=== PATIENT | male | born 1955 | race Caucasian/White ===

== ENCOUNTER 2017-05-09 09:50 | Day surgery (SDC) | payer BC, SELFPAY ==
[2017-04-16 15:46] VITALS: BP 165/89; BMI 25.2
[2017-05-01 17:15] LABS: Hematocrit 44.9 % (40-54); Hemoglobin 15.3 g/dl (13.0-16.5); Mean Corp Hgb Conc 34.1 g/gl (32-36); Mean Corpuscular Hgb 34.2 pg (27.0-32.0); Mean Corpuscular Volume 100.4 fL (80-94); Mean Platelet Vol. 9.7 fl (6.2-12.0); Platelet Count 289 K/mm3 (150-450); RBC Distribution Width CV 12.8 % (11.6-14.6); RBC Distribution Width SD 47.1 fl (35.1-43.9); Red Blood Count 4.47 M/mm3 (4.6-6.2); Scan Indicated on CBC? Y/N NO; White Blood Count 10.1 K/mm3 (4.4-11.0)
[2017-05-09] VITALS (10 sets, daily range): BP systolic 126–146; BP diastolic 68–84; PULSE 65–97; RESP 16–18; TEMP 36.2–37.3; O2SAT 66–99; BMI 24.2
--- NOTE | 2017-05-09 | TESH_PTH ---
PATIENT: RYAN SHELTON LOC: [facility] [place] U#:[id number] AGE/SX: 61/M ROOM: RE05/09/[address]: Dr. Ryan Aparicio MD : [id number] BED: DIS: 05/10/2017 SPEC #: [id number] RECD: 05/09/17 15:09 STATUS: RODRI SYLVIA #: [id number] NORM: 05/09/17 00:[address]: Ryan Aparicio DEPT: SURGICAL PATHOLOGY RECD BY: Donaldo James ENTERED: 05/09/17 15:09 SP TYPE: TENDON OTHR DR: Dr. Juve Agudelo MD Tissues: Tendon and tendon sheath, NOS Procedures: Surgery Specimen Level III HEADER OPERATION: Excisional debridement, ulcer, skin grafting PRE-OP DIAGNOSIS: Nonhealing ulcer right knee, S/P right patellar tendon rupture repair right knee TISSUE SUBMITTED: Tissue right knee MICROSCOPIC DIAGNOSIS Tissue, right knee: Pieces of skin and soft tissue with fibrinous exudation, granulation tissue reaction, chronic inflammation and reactive changes. MANOJ:dannie 05/12/17 MICROSCOPIC DESCRIPTION Slides are reviewed. GROSS DESCRIPTION Received in fixative is one container labeled with the patient's name and designated tissue from right knee. The specimen consists of a raymond-white skin ellipse measuring 6 x 1.5 cm and up to 0.2 cm in thickness. Also present in the container are multiple detached pieces of skin and soft tissue that in aggregate measure 2 x 1.5 x 0.2 cm. The larger piece of skin ellipse shows an oval-shaped defect measuring 2.5 cm in greatest dimension. Handkerchief Cutter sections are submitted in one cassette. / MANOJ:dannie 05/09/17 TC:5 CPT: 35578
--- NOTE | 2017-05-09 07:26 | HP.PCM_ITS ---
History and Physical Date of Admission: 05/09/17 Referring Provider: Hayder Barron MD Primary Provider: Juve Agudelo MD CC: evaluation nonhealing ulcer right knee . History of Present Illness: 61-year-old gentleman initially presented with a nonhealing ulcer of his right knee. He initially sustained a right patellar tendon rupture in May 2016. He underwent right patellar tendon rupture repair on June 05, [address] Barron. Postoperatively there was some healing issues and the patient was taken back to the operating room on September 04, 2016 and he underwent excision sinus tract and debridement right knee wound. Postoperatively a small portion of the wound did not heal and he was sent to the wound center. During this time before going to the wound center patient was placed on doxycycline antibiotics. His initial visit at the wound center was in September 2016. He was started on Promogran dressing changes daily. Wound culture was done which showed coag negative staph and Streptococcus epilepsy and anaerobic cocci. Patient was placed on Zyvox and Flagyl. There was some improvement in the healing of the wound. However it never completely closed. An MRI was done on October 26, 2016. It showed postsurgical changes in the patella and the patellar tendon with a superficial wound with no evidence of soft tissue abscess formation or osteomyelitis. There was mild medial collateral ligament sprain with mild bursitis deep to the medial collateral ligament with a small joint effusion and popliteal cyst. He was taken to the OR on 01/16/17 where he underwent surgical preparation right knee with incision and drainage and excision nonhealing infected ulcer and foreign body granuloma tract with 9 cm complex secondary wound closure. Postop he developed some healing issues and wound care was started with Aquacel Silver dressing changes daily. A wound culture showed MRSE and he was treated with Levaquin. There was some improvement in the wound, but it never completely healed with some tendon exposure. He had persistent pain in his right knee and hasn't been able to return to work as of yet. He is anxious to return to work and further operative intervention was recommended. Patient denies any fever. Patient is ambulatory. Past Medical History: Hypertension Hernia, bilateral inguinal COPD Scrotal hydroceles Right patellar tendon rupture Nonhealing ulcer right knee MRSE Past Surgical History: Right hip replacement 2010 Dislocator right hip 1974 Laparoscopic bilateral inguinal hernia repair with mesh and left scrotal hydrocelectomy 11/07/14 double hernia repair Right patella tendon rupture repair - 3/22/17 excision sinus tract and debridement right knee wound - 09/04/16 Past injuries: denies history of head trauma, denies history of bone fractures Surgical preparation right knee with incision and drainage and excision nonhealing infected ulcer and foreign body granuloma tract with 9 cm complex secondary wound closure - 01/16/17 Family History: Negative for skin cancer Other family member - Has Family History of Arthritis Other family member - Has Family History of Diabetes Other family member - Has Family History of Hypertension Other family member - Has Family History of Other Cancer Father (biol.) - Has Family History of Other Diseases - of OR at age 75 Brother (full) - Has Family History of Other Diseases - kidney cancer Social History: Alcohol Use - yes Drug Use - no Smoking History: Patient currently smokes every day. 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 Eyes: Denies: Blurred vision, Pain HEENT: Denies: Nasal congestion, Sore Throat. Cardiovascular: Denies: Chest Pain, Palpitations, Syncope Respiratory: Denies: Cough, Shortness of Breath. Patient is a smoker. Gastrointestinal: Denies: Abdominal Pain, Nausea, Vomiting Genitourinary: Denies: Dysuria, Frequency Musculoskeletal: Denies: Joint Pain, Muscle pain Skin: Reports: -. Denies: Jaundice, Rash Neurological: Denies: Balance problems, Change in Speech, Difficulty swallowing , Focal weakness Psychiatric: Denies: Anxiety, Depression Endocrine: Denies: Change in Body Habitus Hematologic/ Lymphatic: Denies: Adenopathy, abnormal bruising and bleeding. Vital Signs: Patient Profile: 61 Years Old Male Height: 65.5 inches Weight: 150.8 pounds BMI: 24.71 Physical Exam General: Oriented x3, Cooperative, Well developed HEENT: Atraumatic, PERRLA Oral: Moist Mucosa Neck: Supple, No cervical adenopathy Lungs: Clear to auscultation, Normal air movement Cardiovascular: Regular rate, Regular Rhythm Abdomen: Bowel Sounds Present, Soft, nondistended Extremities: No clubbing, No edema, - - Right knee ulcer at the distal approximated suture line. Measures 2.5 x 1.5 x 0.5 cm. No cellulitis, fluctuance, or purulent drainage. Some tendon exposure. Musculoskeletal: No Tenderness to Palpation of Joints or Extremities Lymphatic: No Cervical, Supraclavicular, or Inguinal Adenopathy Neurological: Cranial nerves II-XII grossly intact Psych/Mental Status: Normal Affect, Appropriate Assessment and Plan Assessment 1. Nonhealing ulcer right knee. 2. Smoker. 3. s/p right patellar tendon rupture repair in May 2016. 4. s/p excision sinus tract and debridement right knee wound in August 2016. 5. s/p surgical preparation right knee with incision and drainage and excision nonhealing infected ulcer and foreign body granuloma tract with 9 cm complex secondary wound closure in January 2017. Plan Discussed with the patient that the ulcer still struggles to heal despite Silver dressing changes for wound care and antibiotics for a wound culture that showed MRSE. Also there may have been too much tension in the incision since it is in an area of movement (knee joint area). Being a smoker also adds to the risk of suboptimal healing as well. There is some exposed tendon and further operative debridement of this nonhealing ulcer was recommended. Depending on what I find at the time of surgery, the simplest procedure would be skin grafting. That will depend on how healthy and bloody the ulcer appears after debridement. Because of the exposed tendon, the skin graft may not heal as well and I discussed with him that if a skin graft is done, I will anticipate some compromise to the healing process and he would need HBO treatments at the Wound Center to help salvage the graft. Another option would be fasciocutaneous flaps, most likely bilateral bipedicle flaps with skin grafting of the donor sites. This would be predicated on the presence of perforators by Doppler signal. Because of his previous surgeries, I don't know how good the fascia is which would compromise the flap and lead to suboptimal healing. If there is too much scarring in the area of the fascial dissection, then I would not proceed with the fasciocutaneous flaps. I would then proceed with a muscle flap with skin grafting. The muscle of choice would be the gastrocnemius muscle. Surgery will be done under general anesthesia with a surgical observation overnight stay in the hospital. If a muscle flap is done, then he would stay a few days. I would also consider a short stay at [facility] if he qualified so I could keep a closer eye on the healing flap. At the time of surgery, I would send tissue to Microbiology for culture and to Pathology for analysis. A positive culture may necessitate antibiotic modification. The patient was informed of the risks and complications of the procedure including alternatives to surgery. These were discussed with the patient personally. The patient voices understanding and wishes to proceed. Some of the risks and complications were included in a form from the [employer]. Encouraged the patient to stop smoking as it may have deleterious effects on wound healing.
[2017-05-09] MEDS: Cefazolin 2 GM in 0.9% Normal Saline 100 ML IV (11:57)
[2017-05-09] MEDS: Mupirocin Ointment 22gm Tube 1 APPLIC (13:16)
--- NOTE | 2017-05-09 13:41 | OP.PN_ITS ---
Immediate Post-Op Note Date of Procedure: 05/09/17 Primary Surgeon/Physician: Luis Aparicio lang interpreter: Mars Palacio. Pre-Operative Diagnosis: 1. Nonhealing ulcer right knee. 2. Smoker. 3. s/p right patellar tendon rupture repair in May 2016. 4. s/p excision sinus tract and debridement right knee wound in August 2016. 5. s/p surgical preparation right knee with incision and drainage and excision nonhealing infected ulcer and foreign body granuloma tract with 9 cm complex secondary wound closure in January 2017. Post-Operative Diagnosis: Same. Surgery/Procedure Performed:: 1. Surgical preparation right knee with excisional debridement nonhealing ulcer and foreign body suture granuloma. 2. Reconstruction right knee ulcer with STSG from lower anterior abdominal wall ( 21 cm2) and placement of AWILDA NPWT. Description of Surgical Findings:: 61-year-old gentleman initially presented with a nonhealing ulcer of his right knee. He initially sustained a right patellar tendon rupture in May 2016. He underwent right patellar tendon rupture repair on June 05, [address] Barron. Postoperatively there was some healing issues and the patient was taken back to the operating room on September 04, 2016 and he underwent excision sinus tract and debridement right knee wound. Postoperatively a small portion of the wound did not heal and he was sent to the wound center. During this time before going to the wound center patient was placed on doxycycline antibiotics. His initial visit at the wound center was in September 2016. He was started on Promogran dressing changes daily. Wound culture was done which showed coag negative staph and Streptococcus epilepsy and anaerobic cocci. Patient was placed on Zyvox and Flagyl. There was some improvement in the healing of the wound. However it never completely closed. An MRI was done on October 26, 2016. It showed postsurgical changes in the patella and the patellar tendon with a superficial wound with no evidence of soft tissue abscess formation or osteomyelitis. There was mild medial collateral ligament sprain with mild bursitis deep to the medial collateral ligament with a small joint effusion and popliteal cyst. He was taken to the OR on 01/16/17 where he underwent surgical preparation right knee with incision and drainage and excision nonhealing infected ulcer and foreign body granuloma tract with 9 cm complex secondary wound closure. Postop he developed some healing issues and wound care was started with Aquacel Silver dressing changes daily. A wound culture showed MRSE and he was treated with Levaquin. There was some improvement in the wound, but it never completely healed with some tendon exposure. He had persistent pain in his right knee and hasn't been able to return to work as of yet. He is anxious to return to work and further operative intervention was recommended. Patient denies any fever. Patient is ambulatory. Today the patient underwent surgical preparation right knee with excisional debridement nonhealing ulcer and foreign body suture granuloma and.reconstruction right knee ulcer with STSG from lower anterior abdominal wall (21 cm2) and placement of AWILDA NPWT. I used [employer] AWILDA NPWT device. Reference Number - [id number]. Lot Number - [id number]. Expiration - May 15, 2018. Estimated Blood Loss: 50 ml. Specimen's removed: Nonhealing ulcer right knee and foreign body granuloma tissue to Pathology and Microbiology. Drains: None. Type of Anesthesia:: General - Admit VTE Documentation VTE Present on Admission: No VTE Mechan Device Prophylaxis: SCD's VTE Pharm Prophylaxis ordered?: No
--- NOTE | 2017-05-09 15:05 | NURSING ---
IVF, LR, from OR programmed to run at ordered rate of 60cc/hr and time on MAR adjusted accordingly.
[2017-05-09 18:11] LABS: Anion Gap 7 (5-15); BUN 12 mg/dL (7-18); BUN/Creat Ratio 18.7 RATIO (10-20); Calcium,Total 8.1 mg/dL (8.5-10.1); Chloride 105 mmol/L (98-107); Creatinine, Serum 0.64 mg/dL (0.70-1.30); EST Glomerular Filtration Rate 135 mL/min (>60); Est Glom Filt Rate - Afr Amer 163 mL/min (>60); Estimated Creatinine Clearance 114.76 ml/min; Glucose 76 mg/dL (74-106); Potassium 3.7 mmol/L (3.5-5.1); Sodium Level 139 mmol/L (136-145)
[2017-05-09] MEDS: oxyCODONE 5 MG Tablet 10 MG PO (18:51)
[2017-05-09] MEDS: Lactated Ringers 1,000 ML 60 ML IV (18:52)
[2017-05-09] MEDS: Docusate Sodium 100 MG Capsule PO (19:52)
[2017-05-10 03:25] VITALS: BP 143/74; PULSE 67; RESP 16; TEMP 36.8; O2SAT 96
[2017-05-10] MEDS: oxyCODONE 5 MG Tablet 10 MG PO ×2 (03:29→10:35)
[2017-05-10 07:14] LABS: Hematocrit 38.7 % (40-54); Hemoglobin 13.5 g/dl (13.0-16.5); Mean Corp Hgb Conc 34.9 g/gl (32-36); Mean Corpuscular Volume 100.3 fL (80-94); Mean Platelet Vol. 9.5 fl (6.2-12.0); Platelet Count 237 K/mm3 (150-450); RBC Distribution Width CV 12.4 % (11.6-14.6); RBC Distribution Width SD 44.4 fl (35.1-43.9); Red Blood Count 3.86 M/mm3 (4.6-6.2); White Blood Count 8.8 K/mm3 (4.4-11.0)
[2017-05-10 07:16] LABS: Scan Indicated on CBC? Y/N NO
[2017-05-10 07:39] LABS: Anion Gap 6 (5-15); BUN 11 mg/dL (7-18); BUN/Creat Ratio 17.9 RATIO (10-20); Calcium,Total 8.4 mg/dL (8.5-10.1); Chloride 100 mmol/L (98-107); Creatinine, Serum 0.62 mg/dL (0.70-1.30); EST Glomerular Filtration Rate 141 mL/min (>60); Est Glom Filt Rate - Afr Amer 171 mL/min (>60); Estimated Creatinine Clearance 118.46 ml/min; Glucose 96 mg/dL (74-106); Potassium 4.1 mmol/L (3.5-5.1); Prealbumin 19.8 mg/dL (20.0-40.0); Sodium Level 136 mmol/L (136-145)
[2017-05-10 08:00] VITALS: BP 132/77; PULSE 66; RESP 16; TEMP 36.4; O2SAT 92
[2017-05-10] MEDS: Multivitamins,Ther W-Minerals Tablet 1 TABLET PO (08:27)
--- NOTE | 2017-05-10 08:45 | OP.PCM_ITS ---
Report of Operation Date of Procedure: 05/09/17 Pre-Operative Diagnosis: 1. Nonhealing ulcer right knee. 2. Smoker. 3. s/p right patellar tendon rupture repair in May 2016. 4. s/p excision sinus tract and debridement right knee wound in August 2016. 5. s/p surgical preparation right knee with incision and drainage and excision nonhealing infected ulcer and foreign body granuloma tract with 9 cm complex secondary wound closure in January 2017. Post-Operative Diagnosis: Same. Surgery/Procedure Performed:: 1. Surgical preparation right knee with excisional debridement nonhealing ulcer and foreign body suture granuloma. 2. Reconstruction right knee ulcer with STSG from lower anterior abdominal wall ( 21 cm2) and placement of AWILDA NPWT. Description of Surgical Findings:: 61-year-old gentleman initially presented with a nonhealing ulcer of his right knee. He initially sustained a right patellar tendon rupture in May 2016. He underwent right patellar tendon rupture repair on June 05, [address] Barron. Postoperatively there was some healing issues and the patient was taken back to the operating room on September 04, 2016 and he underwent excision sinus tract and debridement right knee wound. Postoperatively a small portion of the wound did not heal and he was sent to the wound center. During this time before going to the wound center patient was placed on doxycycline antibiotics. His initial visit at the wound center was in September 2016. He was started on Promogran dressing changes daily. Wound culture was done which showed coag negative staph and Streptococcus epilepsy and anaerobic cocci. Patient was placed on Zyvox and Flagyl. There was some improvement in the healing of the wound. However it never completely closed. An MRI was done on October 26, 2016. It showed postsurgical changes in the patella and the patellar tendon with a superficial wound with no evidence of soft tissue abscess formation or osteomyelitis. There was mild medial collateral ligament sprain with mild bursitis deep to the medial collateral ligament with a small joint effusion and popliteal cyst. He was taken to the OR on 01/16/17 where he underwent surgical preparation right knee with incision and drainage and excision nonhealing infected ulcer and foreign body granuloma tract with 9 cm complex secondary wound closure. Postop he developed some healing issues and wound care was started with Aquacel Silver dressing changes daily. A wound culture showed MRSE and he was treated with Levaquin. There was some improvement in the wound, but it never completely healed with some tendon exposure. He had persistent pain in his right knee and hasn't been able to return to work as of yet. He is anxious to return to work and further operative intervention was recommended. Patient denies any fever. Patient is ambulatory. The patient was informed of the risks and complications of the procedure including alternatives to surgery. These were discussed with the patient personally. The patient voices understanding and wishes to proceed. Some of the risks and complications were included in a form from the [employer]. Encouraged the patient to stop smoking as it may have deleterious effects on wound healing. I used [employer] AWILDA NPWT device. Reference Number - [id number]. Lot Number - [id number]. Expiration - May 15, 2018. Size of the skin graft right knee - 7 x 3 cm. educational paraprofessional: Mars Palacio. Type of Anesthesia:: General Specimen's removed: Nonhealing ulcer right knee and foreign body granuloma tissue to Pathology and Microbiology. Drains: None. Estimated Blood Loss (mL): 50 ml. Description of Procedure: Patient was taken to OR in supine position and was placed under general anesthesia. His right leg and lower anterior abdominal wall were prepped and draped in the usual fashion. SCD's were placed for DVT prophylaxis. Perioperative antibiotics were given intravenously. Using xylocaine with epinephrine, the right knee ulcer and lower anterior abdominal wall area were infiltrated. After waiting 5 minutes for the anesthetic to take effect, I proceeded with excisional debridement of the right knee ulcer. I opened up the incision proximally and distally as an ellipitical excision. When I got down to the tendon, there was a loose suture that was cut. The surrounding granuloma scar tissue was also excised. I then used a curette and sharply debrided the ulcer and tendon. Good bleeding was seen throughout the wound. At this point, I felt the wound was clean with good vascularity, and I decided to proceed with skin grafting. I felt the presence of the loose foreign body suture could have been one of the reasons for the nonhealing. All the hard scar tissue was debrided in the wound to maximize the healing of the skin graft. I also discussed with the patient that with his history of smoking, I anticipate that if a skin graft is done, that HBO treatments may be necessary to help salvage the graft if any evidence of compromise is seen. The tissue that was excised and debrided was sent to Pathology for analysis to rule out carcinoma and to Microbiology for culture. A positive culture may necessitate antibiotic modification. The size of the wound for the skin graft was 7 x 3 cm. I excised a horizontal ellipse of skin in the lower anterior abdominal wall. I removed the subcutaneous tissue from the undersurface of the dermis and some of the deeper dermis thus fashioning a thick split thickness skin graft. The skin graft was then meshed with a 15 blade and placed in saline. The donor incision was then closed after removing some of the subcutaneous tissue to aid in wound closure. The underlying Aturus's fascial layer was closed with 3-0 Monocryl figure of eight interrupted sutures. The deep dermis and subcutaneous tissue was approximated with 3-0 Monocryl interrupted sutures. The skin was approximated with 3-0 Vlock unidirectional barbed running subcuticular suture. Antibiotic ointment was applied to the incision followed by Kerlix gauze. The skin graft was then placed on the knee wound and secured to the skin edges with 3-0 Chromic interrupted sutures. 3-0 Chromic sutures were also placed for central quilting stabilization. Antibiotic ointment was applied to the skin graft followed by Mepitel nonadherent dressing. This was followed by a AWILDA NPWT device. Good suction was noted with the device. An GRANT wrap was then applied for compression. Patient tolerated the procedure well and was sent to PACU in satisfactory condition. He will be sent upstairs for a surgical observation overnight stay in the hospital. He will keep his right leg elevated when sitting. He will followup in the office next week for a takedown of the skin graft dressing and for evaluation of the pathology report and Microbiology report. A positive culture may necessitate antibiotic modification. He will be treated perioperatively with Vancomycin. Grafts/Implants Used: None. - Complications None. - Admit VTE Documentation VTE Present on Admission: No VTE Mechan Device Prophylaxis: SCD's VTE Pharm Prophylaxis ordered?: No Code Visit Surgery Charges CPT - 36602 ICD-10 - L97.919, F17.200 18214 L97.919, F17.200
[2017-05-10] MEDS: amLODIPine 5 MG Tablet PO (09:30)
[2017-05-10] MEDS: Docusate Sodium 100 MG Capsule PO (09:30)
--- NOTE | 2017-05-10 10:11 | PN.SURG_ITS ---
Subjective: Postop #1 Patient is resting comfortably. - Physical Exam General: Alert, Oriented x3 HEENT: PERRLA, EOMI Neck: Supple Lungs: Clear to auscultation Cardiovascular: Regular rate, Regular Rhythm Skin: - - skin graft right knee is intact. AWILDA NPWT intact and functional. Minimal drainage on the AWILDA gauze. Neurological: Cranial nerves II-XII grossly intact Psych/Mental Status: Normal Affect, Appropriate Vital Signs Temp Pulse Resp BP Pulse Ox 97.6 F L 66 16 132/77 H 92 05/10/17 08:00 05/10/17 08:00 05/10/17 08:00 05/10/17 08:00 05/10/17 08:00 Oxygen Flow Rate 2 Oxygen Delivery Method Room Air Weight: 154 lb 12.232 oz Body Mass Index (BMI) 24.2 Intake and Output for Last 24 Hours 05/08/17 05/09/17 05/10/17 23:59 23:59 23:59 Intake Total 1668 / 1668 Output Total 100 / 100 Balance 1568 / 1568 Microbiology Past 72 Hours 05/09/17 13:00 Wound Culture - Preliminary Tissue - Knee No growth-Final to follow Laboratory Tests Past 24 Hrs 05/09/17 05/10/17 05/10/17 17:37 06:49 06:49 WBC 8.8 RBC 3.86 L Hgb 13.5 Hct 38.7 L MCV 100.3 H MCH 35.0 H MCHC 34.9 RDW 12.4 RDW Differential 44.4 H Plt Count 237 MPV 9.5 Sodium 139 136 Potassium 3.7 4.1 Chloride 105 100 Carbon Dioxide 27.0 30.0 Anion Gap 7 6 BUN 12 11 Creatinine 0.64 L 0.62 L Estim Creat Clear Calc 114.76 118.46 Est GFR (MDRD) Af Amer 163 171 Est GFR (MDRD) Non-Af 135 141 BUN/Creatinine Ratio 18.7 17.9 Glucose 76 96 Calcium 8.1 L 8.4 L Prealbumin 19.8 L Assessment/Plan 1. Nonhealing ulcer right knee. 2. Smoker. 3. s/p right patellar tendon rupture repair in May 2016. 4. s/p excision sinus tract and debridement right knee wound in August 2016. 5. s/p surgical preparation right knee with incision and drainage and excision nonhealing infected ulcer and foreign body granuloma tract with 9 cm complex secondary wound closure in January 2017. 6. s/p surgical preparation right knee with excisional debridement nonhealing ulcer and foreign body suture granuloma. 2. Reconstruction right knee ulcer with STSG from lower anterior abdominal wall (21 cm2) and placement of AWILDA NPWT. Patient is resting comfortably. He is anxious to go home. Keep right leg elevated. Followup office one week for removal of the AWILDA NPWT device. Depending on the healing of the graft, we may consider HBO treatments to help the healing process. Prealbumin was 19.8. Encourage nutritional supplementation with protein to help the healing process. Wrote scripts for Percocet for pain (40 tabs) and for Valium for spasm (10 tabs) . Wrote script for Levaquin for 7 days. Encouraged the patient to stop smoking as it may have deleterious effects on wound healing.
--- NOTE | 2017-05-10 10:23 | PCM.DC ---
You will use the following diet at home:: No restrictions, Regular, Other - encourage nutritional supplementation with protein to help the healing process. Discharge Activity: May not drive while taking narcotic pain medications., May Shower - tomorrow. Wear plastic bag over right leg when showering. The abdominal wall donor incision may get wet in the shower tomorrow., - - no standing. may ambulate. elevate right leg when sitting. May shower in (days): 1 - wear plastic bag over right leg when sitting. May resume sexual activity in: No Restrictions Weight Bearing Status: Weight bearing as tolerated Keep extremity elevated above heart level: Right Leg Call your doctor if your incision/area has: Continuous Slow Oozing, Sudden Increased Bleeding, Increased Pain/ Swelling, Increased Redness, Foul Smelling Discharge, Swelling at the incision site, - - if there is a problem with the suction device. Call your doctor if you observe: Fever of 101 or Higher, Coldness, Increased Pain, Shortness of breath, Chest pain, Calf discomfort, Uncontrolled pain Suture Line Care: - - apply antibiotic ointment to suture line abdominal wall daily beginning tomorrow. Change Dressing in (Days):: 1 - dry dressings daily to the abdominal wall incision after the shower Cleanse incision/area with: - - wear plastic bag over right leg when showering. may get abdominal incision wet in the shower tomorrow. Allergies/Adverse Reactions: Allergies Sulfa (Sulfonamide Antibiotics) Adverse Reaction (Verified 05/01/17 15:11) Other INFLAMMATION Medications to take at Discharge Multivit-Min/FA/Lycopene/Lut [Centrum Silver Tablet] 1 ea PO DAILY 10/28/14 Amlodipine Besylate [Norvasc] 5 mg PO DAILY 05/01/17 Diazepam [Valium] 5 mg PO BID PRN #10 tab 05/10/17 L. Acidophilus/Pectin, [place] [Acidophilus-Pectin [place]] 1 ea PO BID #20 tab 05/10/17 Levofloxacin [Levaquin] 500 mg PO DAILY #7 tab 05/10/17 Oxycodone HCl/Acetaminophen [Percocet 5/325] 1 - 2 tab PO 4X/DAY PRN PRN 5 Days #40 tab 05/10/17 The following prescriptions were given: Levofloxacin [Levaquin] 500 mg PO DAILY #7 tab Oxycodone HCl/Acetaminophen [Percocet 5/325] 1 - 2 tab PO 4X/DAY PRN PRN 5 Days #40 tab PRN Reason: Pain Diazepam [Valium] 5 mg PO BID PRN #10 tab PRN Reason: Spasms L. Acidophilus/Pectin, [place] [Acidophilus-Pectin Captab] 1 ea PO BID #20 tab Primary Care Physician: Juve Agudelo MD [Primary Care Provider] - Please Follow Up With: Luis Aparicio MD When: next week. call [phone] for appt. Proposed Discharge Date: 05/10/17
--- NOTE | 2017-05-10 10:31 | DCINST_ITS ---
You will use the following diet at home:: No restrictions, Regular, Other - encourage nutritional supplementation with protein to help the healing process. Discharge Activity: May not drive while taking narcotic pain medications., May Shower - tomorrow. Wear plastic bag over right leg when showering. The abdominal wall donor incision may get wet in the shower tomorrow., - - no standing. may ambulate. elevate right leg when sitting. May shower in (days): 1 - wear plastic bag over right leg when sitting. May resume sexual activity in: No Restrictions Weight Bearing Status: Weight bearing as tolerated Keep extremity elevated above heart level: Right Leg Call your doctor if your incision/area has: Continuous Slow Oozing, Sudden Increased Bleeding, Increased Pain/ Swelling, Increased Redness, Foul Smelling Discharge, Swelling at the incision site, - - if there is a problem with the suction device. Call your doctor if you observe: Fever of 101 or Higher, Coldness, Increased Pain, Shortness of breath, Chest pain, Calf discomfort, Uncontrolled pain Suture Line Care: - - apply antibiotic ointment to suture line abdominal wall daily beginning tomorrow. Change Dressing in (Days):: 1 - dry dressings daily to the abdominal wall incision after the shower Cleanse incision/area with: - - wear plastic bag over right leg when showering. may get abdominal incision wet in the shower tomorrow. Allergies/Adverse Reactions: Allergies Sulfa (Sulfonamide Antibiotics) Adverse Reaction (Verified 05/01/17 15:11) Other INFLAMMATION Medications to take at Discharge Multivit-Min/FA/Lycopene/Lut [Centrum Silver Tablet] 1 ea PO DAILY 10/28/14 Amlodipine Besylate [Norvasc] 5 mg PO DAILY 05/01/17 Diazepam [Valium] 5 mg PO BID PRN #10 tab 05/10/17 L. Acidophilus/Pectin, [place] [Acidophilus-Pectin Captab] 1 ea PO BID #20 tab Levofloxacin [Levaquin] 500 mg PO DAILY #7 tab 05/10/17 Oxycodone HCl/Acetaminophen [Percocet 5/325] 1 - 2 tab PO 4X/DAY PRN PRN 5 Days #40 tab 05/10/17 The following prescriptions were given: Levofloxacin [Levaquin] 500 mg PO DAILY #7 tab Oxycodone HCl/Acetaminophen [Percocet 5/325] 1 - 2 tab PO 4X/DAY PRN PRN 5 Days #40 tab PRN Reason: Pain Diazepam [Valium] 5 mg PO BID PRN #10 tab PRN Reason: Spasms L. Acidophilus/Pectin, [place] [Acidophilus-Pectin Captab] 1 ea PO BID #20 tab Primary Care Physician: Juve Agudelo MD [Primary Care Provider] - Please Follow Up With: Luis Aparicio MD When: next week. call [phone] for appt. Proposed Discharge Date: 05/10/17
[2017-05-10 11:16] VITALS: BP 135/73; PULSE 71; RESP 16; TEMP 36.5; O2SAT 94
== END 2017-05-10 11:20 | disposition home or self-care (01) ==
LOC: SDC 09:51 → AC 09:52 → MS3 14:01
PROVIDERS: Family Provider Family Medicine; PCP Family Medicine; Visit Provider Surgery
PROC: (CPT 15002; principal; 2017-05-09 11:15)
DX: L97.819 Non-pressure chronic ulcer of other part of right lower leg with unspecified severity (principal); I10 Essential (primary) hypertension; J44.9 Chronic obstructive pulmonary disease, unspecified; F17.200 Nicotine dependence, unspecified, uncomplicated; Z79.82 Long term (current) use of aspirin; Z98.890 Other specified postprocedural states
CPT/HCPCS: 00400; 15002; 15100; 36415; 80048; 84134; 85027; 87015; 87070; 87075; 87102; 87116; 87205; 87206; 88304; J7120; J2405

== ENCOUNTER → 2017-05-29 15:51 | Outpatient (CLI) | payer BC, SELFPAY ==
--- NOTE | 2017-05-29 15:55 | RAD_ITS ---
STUDY: X-RAY CHEST REASON FOR EXAM: Male, 61 years old. COPD TECHNIQUE: PA and lateral views of the chest. COMPARISON: 10/26/2014 FINDINGS: There is hyperinflation of the lungs consistent with chronic obstructive lung disease (COPD). There is no demonstrated pleural abnormality. Normal size heart. Normal mediastinum and lupillo. Normal visualized pulmonary arteries. Normal visualized aortic arch and descending thoracic aorta. Normal visualized thoracic spine. Normal visualized ribs, clavicles, and shoulders. Remote compression deformity in the upper lumbar spine is unchanged. There is no demonstrated abnormality of the visualized soft tissue structures of the upper abdomen. RAD/Chest PA and Lateral IMPRESSION: COPD. No focal consolidation. Electronically Signed: Pete Conner DO at 14:46 EDT Tel , Service support ,
--- NOTE | 2017-06-09 21:47 | PCM.WC.PN ---
Type of Wound Date of Service: 06/09/17 Chief Complaint: Nonhealing ulcer right knee, s/p debridement and skin grafting 05/09/17, with some early compromise. History of Wound: Surgery 05/09/17 - Surgical preparation right knee with excisional debridement nonhealing ulcer and foreign body suture granuloma. 2. Reconstruction right knee ulcer with STSG from lower anterior abdominal wall (21 cm2) and placement of AWILDA NPWT. Operative culture - negative. He was placed on Levaquin perioperatively. Prealbumin from 05/10/17 was 19.8. Encourage nutritional supplementation with protein to help the healing process. It was noted at his first postop visit that there was some early compromise to his skin graft mostly at the edges and now is mostly in the central aspect of the graft probably over the tendon. He would benefit from HBO treatments. Today he denies any fever. His appetite is good. Progress of Wound: Recent skin graft surgery on 05/09/17 with early graft compromise. Debridement Note Post Debridement Measurements #1 Right knee with early skin graft compromise. Selective Debridement. Measurement - 4.2 x 1.6 x 0.1 cm -- (6.72 cm2). Minimal bleeding controlled with gentle pressure. Redressed skin graft with Bactroban ointment to be done daily. Wound debrided: #1 Right knee with early skin graft compromise. Laterality: Right Wound Grade/Stage: 3. Type of Debridement: Selective debridement Anesthesia Used: 4% Lidocaine Solution Depth: - - some superficial scabbing was debrided. Percentage of wound debrided: 100 Instrument Used: 3mm curette Tissue Removed: superficial scabbing from the recently placed skin graft. Severity: Limited To Skin Breakdown - superficial scabbing from the recently placed skin graft. Amount of bleeding with debridement: Mild Bleeding Controlled with: Pressure Patient tolerated procedure well Assessment/Plan Clinical Impression(s) from Imaging Studies Chest X-Ray 05/29/17 15:55 IMPRESSION: COPD. No focal consolidation. Electronically Signed: Pete Conner DO at 14:46 EDT Tel , Service support , Assessment: 1. Nonhealing ulcer right knee, with recent skin grafting. 2. Early compromise skin graft right knee. 3. s/p right patellar tendon rupture repair in May 2016. 4. s/p excision sinus tract and debridement right knee wound in August 2016. 5. s/p surgical preparation right knee with incision and drainage and excision nonhealing infected ulcer and foreign body granuloma tract with 9 cm complex secondary wound closure in January 2017. 6. s/p surgical preparation right knee with excisional debridement nonhealing ulcer and foreign body suture granuloma and reconstruction right knee ulcer with STSG from lower anterior abdominal wall (21 cm2) and placement of AWILDA NPWT. 7. Smoker. Plan: The skin graft shows good adherence and good vascular ingrowth at the edges. There is some early compromise to the graft mostly in the central aspect, about 15%. Continue Bactroban ointment to the skin graft which he will continue at home on a daily basis. Continue the GRANT wrap for compression. He is done with his Levaqiun as the operative culture was negative. Prealbumin from 05/10/17 was 19.8. Encourage nutritional supplementation with protein to help the healing process. He is a good candidate for HBO treatments because of some early compromise to his recently placed skin graft and would benefit from these treatments to help salvage the graft. The HBO treatments were started today. He will keep his right leg elevated when sitting. Encouraged the patient to stop smoking as it may have deleterious effects on wound healing. Followup one week.
--- NOTE | 2017-06-09 22:29 | PCM.HBO.PN ---
History of Present Illness Date of Service: 06/09/17 Presenting Chief Complaint: Nonhealing ulcer right knee, s/p debridement and skin grafting 05/09/17, with compromise of graft. RYAN SHELTON is a 61 year old currently undergoing hyperbaric oxygen therapy for compromised skin graft right knee after debridement and skin grafting 05/09/17. Progress: This session represents the 1st session of hyperbaric oxygen therapy treatments. Tolerance of hyperbaric oxygen therapy: Oxygen therapy was administered as per the facility's protocol. Patient complained of some right ear issues requiring decompression, recompression x's 2 to get to [place]. Instructed patient to use Saline nasal spray prior to coming for treatment tomorrow; [place] each nares twice; wait 5-min. and repeat. Patient acknowledged instructions. If there are further issues, then will need evaluation by ENT. Patient was discharged in good condition. 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) nonhealing ulcer right knee Allergies/Adverse Reactions: Allergies Sulfa (Sulfonamide Antibiotics) Adverse Reaction (Verified 05/27/17 15:26) Other INFLAMMATION Home Medications: Ambulatory Orders Medication Instructions Recorded Multivit-Min/FA/Lycopene/Lut 1 ea PO DAILY 10/28/14 [Centrum Silver Tablet] Amlodipine Besylate [Norvasc] 5 mg PO DAILY 05/01/17 Oxycodone HCl/Acetaminophen 1 - 2 tab PO 4X/DAY PRN PRN 5 Days 05/10/17 [Percocet 5/325] #40 tab Smoking Status: Current every day smoker
--- NOTE | 2017-06-16 18:17 | PN.PCM_ITS ---
Type of Wound Date of Service: 06/09/17 Chief Complaint: Nonhealing ulcer right knee, s/p debridement and skin grafting 05/09/17, with some early compromise. History of Wound: Surgery 05/09/17 - Surgical preparation right knee with excisional debridement nonhealing ulcer and foreign body suture granuloma. 2. Reconstruction right knee ulcer with STSG from lower anterior abdominal wall ( 21 cm2) and placement of AWILDA NPWT. Operative culture - negative. He was placed on Levaquin perioperatively. Prealbumin from 05/10/17 was 19.8. Encourage nutritional supplementation with protein to help the healing process. It was noted at his first postop visit that there was some early compromise to his skin graft mostly at the edges and now is mostly in the central aspect of the graft probably over the tendon. He would benefit from HBO treatments. Today he denies any fever. His appetite is good. Progress of Wound: Recent skin graft surgery on 05/09/17 with early graft compromise. Debridement Note Post Debridement Measurements #1 Right knee with early skin graft compromise. Selective Debridement. Measurement - 4.2 x 1.6 x 0.1 cm -- (6.72 cm2). Minimal bleeding controlled with gentle pressure. Redressed skin graft with Bactroban ointment to be done daily. Wound debrided: #1 Right knee with early skin graft compromise. Laterality: Right Wound Grade/Stage: 3. Type of Debridement: Selective debridement Anesthesia Used: 4% Lidocaine Solution Depth: - - some superficial scabbing was debrided. Percentage of wound debrided: 100 Instrument Used: 3mm curette Tissue Removed: superficial scabbing from the recently placed skin graft. Severity: Limited To Skin Breakdown - superficial scabbing from the recently placed skin graft. Amount of bleeding with debridement: Mild Bleeding Controlled with: Pressure Patient tolerated procedure well Assessment/Plan Clinical Impression(s) from Imaging Studies Chest X-Ray 05/29/17 15:55 IMPRESSION: COPD. No focal consolidation. Electronically Signed: Pete Conner DO at 14:46 EDT Tel , Service support , Assessment: 1. Nonhealing ulcer right knee, with recent skin grafting. 2. Early compromise skin graft right knee. 3. s/p right patellar tendon rupture repair in May 2016. 4. s/p excision sinus tract and debridement right knee wound in August 2016. 5. s/p surgical preparation right knee with incision and drainage and excision nonhealing infected ulcer and foreign body granuloma tract with 9 cm complex secondary wound closure in January 2017. 6. s/p surgical preparation right knee with excisional debridement nonhealing ulcer and foreign body suture granuloma and reconstruction right knee ulcer with STSG from lower anterior abdominal wall (21 cm2) and placement of AWILDA NPWT. 7. Smoker. Plan: The skin graft shows good adherence and good vascular ingrowth at the edges. There is some early compromise to the graft mostly in the central aspect , about 15%. Continue Bactroban ointment to the skin graft which he will continue at home on a daily basis. Continue the GRANT wrap for compression. He is done with his Levaqiun as the operative culture was negative. Prealbumin from 05/10/17 was 19.8. Encourage nutritional supplementation with protein to help the healing process. He is a good candidate for HBO treatments because of some early compromise to his recently placed skin graft and would benefit from these treatments to help salvage the graft. The HBO treatments were started today. He will keep his right leg elevated when sitting. Encouraged the patient to stop smoking as it may have deleterious effects on wound healing. Followup one week.
--- NOTE | 2017-06-16 18:25 | HBO.PN.PCM_ITS ---
History of Present Illness Date of Service: 06/09/17 Presenting Chief Complaint: Nonhealing ulcer right knee, s/p debridement and skin grafting 05/09/17, with compromise of graft. RYAN SHELTON is a 61 year old currently undergoing hyperbaric oxygen therapy for compromised skin graft right knee after debridement and skin grafting . Progress: This session represents the 1st session of hyperbaric oxygen therapy treatments. Tolerance of hyperbaric oxygen therapy: Oxygen therapy was administered as per the facility's protocol. Patient complained of some right ear issues requiring decompression, recompression x's 2 to get to OUMAR. Instructed patient to use Saline nasal spray prior to coming for treatment tomorrow; Chandler each nares twice; wait 5-min. and repeat. Patient acknowledged instructions. If there are further issues, then will need evaluation by ENT. Patient was discharged in good condition. 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) nonhealing ulcer right knee Allergies/Adverse Reactions: Allergies Sulfa (Sulfonamide Antibiotics) Adverse Reaction (Verified 05/27/17 15:26) Other INFLAMMATION Home Medications: Ambulatory Orders Medication Instructions Recorded Multivit-Min/FA/Lycopene/Lut 1 ea PO DAILY 10/28/14 [Centrum Silver Tablet] Amlodipine Besylate [Norvasc] 5 mg PO DAILY 05/01/17 Oxycodone HCl/Acetaminophen 1 - 2 tab PO 4X/DAY PRN PRN 5 Days 05/10/17 [Percocet 5/325] #40 tab Smoking Status: Current every day smoker
== END ==
PROVIDERS: Family Provider Family Medicine; PCP Family Medicine; Visit Provider Surgery
DX: J44.9 Chronic obstructive pulmonary disease, unspecified (principal)
CPT/HCPCS: 71046

== ENCOUNTER 2017-06-13 10:00 | Outpatient (RCR) | payer BC, SELFPAY ==
[2017-05-27 15:04] VITALS: BP 146/81; PULSE 80; RESP 18; TEMP 37.2; BMI 51.7
--- NOTE | 2017-05-27 22:12 | PN.PCM_ITS ---
Type of Wound Date of Service: 05/27/17 Chief Complaint: Right knee ulcer, s/p debridement and skin grafting 05/09/17, with some early compromise. History of Wound: Surgery 05/09/17 - Surgical preparation right knee with excisional debridement nonhealing ulcer and foreign body suture granuloma. 2. Reconstruction right knee ulcer with STSG from lower anterior abdominal wall ( 21 cm2) and placement of AWILDA NPWT. Operative culture - negative. He was placed on Levaquin perioperatively. Prealbumin from 05/10/17 was 19.8. Encourage nutritional supplementation with protein to help the healing process. It was noted at his first postop visit that there was some early compromise to his skin graft mostly at the edges and would benefit from some HBO treatments. Today he denies any fever. His appetite is good. Progress of Wound: Recent surgery on 05/09/17. - Physical Exam Vital Signs Temp Pulse Resp BP 99 F 80 18 146/81 H 05/27/17 15:04 05/27/17 15:04 05/27/17 15:04 05/27/17 15:04 General: Alert, Oriented x3 HEENT: TM's Clear - No bleeding. No fluid behind the TM. Neck: Supple Lungs: Clear to auscultation Cardiovascular: Regular rate, Regular Rhythm Skin: Incision - Lower abdominal wall incision is dry and intact and healing satisfactory., - - The skin graft right knee shows good adherence with some vascular ingrowth. About 90% of the graft is healing satisfactory. There appears to be some early graft compromise of about 10% mostly on the edges. Wound Measurements and Assessment WC - Nurse 1 - General Ulcer Measurement Start: 05/27/17 15:04 Freq: Status: Active Protocol: Activity Type Activity Date Activity User E-Sign Co-Sign Detail Recorded Client Recorded Date Recorded By Document 05/27/17 15:04 DL [id number] 05/27/17 15:20 DL 05/27/17 15:04 Wound Center Nurse 1 [Ulcer Assessment] #1 Right Knee -Current Size (cm) - Length 4 -Current Size (cm) - Width 2.2 -Current Size (cm) - Depth 0.1 -Total Square Cm 8.8 -Photo Taken Yes -Tunneling No -Classification - Thickness Full Thickness without Exposed Support Structure -Exudate Amt Small (1-33%) -Exudate Type Serosanguineous -Wound Margin Distinct, Outline Attached -Granulation Amt Small (1-33%) -Granulation Quality [employer] -Necrosis Amt Small (1-33%) -Necrotic Tissue Type Adherent Slough -Structure Exposed N/A -Texture (Loretta-wound Skin Appearance) Scarring -Moisture (Loretta-wound Skin Appearance No Abnormality ) -Color (Loretta-wound Skin Appearance) Rubor -Temperature ([place]oretta-wound Skin No Abnormality Appearance) (Pt Warm) -Tenderness on Palpation (Loretta-wound No Skin Appearance) -Ulcer Cleansing Wound Cleanser -Foul Odor after Cleansing No -Anesthetic Used 4% Lidocaine Solution - Nurse 2 - General Ulcer CM Notes Start: 05/27/17 15:04 Freq: Status: Active Protocol: Activity Type Activity Date Activity User E-Sign Co-Sign Detail Recorded Client Recorded Date Recorded By Document 05/27/17 15:51 [id number] 05/27/17 16:01 05/27/17 15:51 Wound Center Nurse 2 [Procedure/Treatment] -Time 15:52 -Correct Patient Yes -Correct Side, Site, Position Yes -Correct Procedure Yes -Procedure Performed Yes -Type of Procedure Debridement -Clinical Debridement Selective -Post Debridement Size (cm) - Length 4 -Post Debridement Size (cm) - Width 2.2 -Post Debridement Size (cm) - Depth 0.1 -Total Square Cm 8.8 -Wound/Ulcer Outcome Not Healed -Ulcer Cleansing Rinsed/ Irrigated with Saline -Foul Odor after Cleansing No -Bioengineered Tissue No -Bleeding Controlled with Pressure -Treatment Response Procedure Tolerated Well [See Physician Procedure note for Specifics] Pain Scale: 0-10 Numeric [Pain] -Is Patient Pain Free? Yes Debridement Note Post-Debridement Measurements/Treatment - Nurse 2 - General Ulcer CM Notes Start: 05/27/17 15:04 Freq: Status: Active Protocol: Activity Type Activity Date Activity User E-Sign Co-Sign Detail Recorded Client Recorded Date Recorded By Document 05/27/17 15:51 [id number] 05/27/17 16:01 05/27/17 15:51 Wound Center Nurse 2 #1 Right Knee -Time 15:52 -Correct Patient Yes -Correct Side, Site, Position Yes -Correct Procedure Yes -Procedure Performed Yes -Type of Procedure Debridement -Clinical Debridement Selective -Post Debridement Size (cm) - Length 4 -Post Debridement Size (cm) - Width 2.2 -Post Debridement Size (cm) - Depth 0.1 -Total Square Cm 8.8 -Wound/Ulcer Outcome Not Healed -Ulcer Cleansing Rinsed/ Irrigated with Saline -Foul Odor after Cleansing No -Bioengineered Tissue No -Bleeding Controlled with Pressure -Treatment Response Procedure Tolerated Well Pain Scale: 0-10 Numeric Is Patient Pain Free? Yes Wound debrided: #1 Right knee with early skin graft compromise. Laterality: Right Wound Grade/Stage: 3. Type of Debridement: Selective debridement Anesthesia Used: 4% Lidocaine Solution Depth: - - some superficial scabbing was debrided. Percentage of wound debrided: 100 Instrument Used: 3mm curette Tissue Removed: superficial scabbing from the recently placed skin graft. Severity: Limited To Skin Breakdown - some superficial scabbing from the recently placed skin graft. Amount of bleeding with debridement: Mild Bleeding Controlled with: Pressure Patient tolerated procedure well Assessment/Plan Assessment: 1. Nonhealing ulcer right knee, with recent skin grafting. 2. Early compromise skin graft right knee. 3. s/p right patellar tendon rupture repair in May 2016. 4. s/p excision sinus tract and debridement right knee wound in August 2016. 5. s/p surgical preparation right knee with incision and drainage and excision nonhealing infected ulcer and foreign body granuloma tract with 9 cm complex secondary wound closure in January 2017. 6. s/p surgical preparation right knee with excisional debridement nonhealing ulcer and foreign body suture granuloma and reconstruction right knee ulcer with STSG from lower anterior abdominal wall (21 cm2) and placement of AWILDA NPWT. 7. Smoker. Plan: The AWILDA NPWT was removed today. The skin graft shows good adherence and good vascular ingrowth. There is about 10% early compromise to the graft mostly at the edges. Applied Bactroban ointment to the skin graft which he will continue at home on a daily basis. Continue the GRANT wrap for compression. He is done with his Levaqiun as the operative culture was negative. Prealbumin from 05/10/17 was 19.8. Encourage nutritional supplementation with protein to help the healing process. He is a good candidate for HBO treatments because of some early compromise to his recently placed skin graft and would benefit from these treatments to help salvage the graft. He needs a pretreatment CXR. His ears are ok for the treatment. He will keep his right leg elevated when sitting. Encouraged the patient to stop smoking as it may have deleterious effects on wound healing. Followup 2 weeks.
[2017-06-09 09:10] VITALS: BP 131/93; PULSE 103; RESP 20; TEMP 36.7
[2017-06-09 10:59] VITALS: BP 134/93; PULSE 103; RESP 18; TEMP 36.7; BMI 51.7
[2017-06-10 10:20] VITALS: BP 145/87; PULSE 88; RESP 16; TEMP 36.8
--- NOTE | 2017-06-10 12:08 | PCM.HBO.PN ---
History of Present Illness Date of Service: 06/10/17 Presenting Chief Complaint: Right knee ulcer, s/p debridement and skin grafting 05/09/17, with compromise of graft. RYAN SHELTON is a 61 year old currently undergoing hyperbaric oxygen therapy for right knee ulcer, s/p debridement and skin grafting 05/09/17, with early compromise of skin graft. Progress: This session represents the second such session of hyperbaric oxygen therapy treatments. Tolerance of hyperbaric oxygen therapy: Oxygen therapy was administered as per the facility's protocol. Pressurization, the patient began to experience barotrauma involving the right ear, which was sharp and intense. This necessitated discontinuation of the hyperbaric oxygen treatment. Physical assessment by means of otoscopy revealed erythema involving the right tympanic membrane. Patient was discharged in good condition, with arrangements for the patient to be evaluated by otolaryngology, in anticipation of right ear tube placement. 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) nonhealing ulcer right knee Allergies/Adverse Reactions: Allergies Sulfa (Sulfonamide Antibiotics) Adverse Reaction (Verified 05/27/17 15:26) Other INFLAMMATION Home Medications: Ambulatory Orders Medication Instructions Recorded Multivit-Min/FA/Lycopene/Lut 1 ea PO DAILY 10/28/14 [Centrum Silver Tablet] Amlodipine Besylate [Norvasc] 5 mg PO DAILY 05/01/17 Oxycodone HCl/Acetaminophen 1 - 2 tab PO 4X/DAY PRN PRN 5 Days 05/10/17 [Percocet 5/325] #40 tab Smoking Status: Current every day smoker Physical Exam Vital Signs Temp Pulse Resp BP 98.2 F 88 16 145/87 H 06/10/17 10:20 06/10/17 10:20 06/10/17 10:20 06/10/17 10:20 General: Alert, Oriented x3, Cooperative, No apparent distress HEENT: Atraumatic, PERRLA, EOMI, Normocephalic, - - Erythema of the right tympanic membrane Lungs: Normal air movement Psych/Mental Status: Normal Affect, Appropriate, Alert and oriented to time, place, person, mood and affect Assessment/Plan The patient is to be evaluated and treated by otolaryngology, and will return thereafter for resumption of hyperbaric oxygen therapy treatments.
[2017-06-13 10:23] VITALS: BP 152/94; PULSE 99; RESP 16; TEMP 36.8
--- NOTE | 2017-06-13 11:06 | PCM.HBO.PN ---
History of Present Illness Date of Service: 06/13/17 Presenting Chief Complaint: Right knee ulcer, s/p debridement and skin grafting 05/09/17, with compromise of graft. RYAN SHELTON is a 61 year old currently undergoing hyperbaric oxygen therapy for right knee ulcer, s/p debridement and skin grafting 05/09/17, with early compromise of skin graft. Progress: This session represents the second such session of hyperbaric oxygen therapy treatments. Tolerance of hyperbaric oxygen therapy: Oxygen therapy was administered as per the facility's protocol. Pressurization, the patient began to experience barotrauma involving the right ear, which was sharp and intense. This necessitated discontinuation of the hyperbaric oxygen treatment. Physical assessment by means of otoscopy revealed erythema involving the right tympanic membrane. Patient was discharged in good condition, with arrangements for the patient to be evaluated by otolaryngology, in anticipation of right ear tube placement. 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) nonhealing ulcer right knee Allergies/Adverse Reactions: Allergies Sulfa (Sulfonamide Antibiotics) Adverse Reaction (Verified 05/27/17 15:26) Other INFLAMMATION Home Medications: Ambulatory Orders Medication Instructions Recorded Multivit-Min/FA/Lycopene/Lut 1 ea PO DAILY 10/28/14 [Centrum Silver Tablet] Amlodipine Besylate [Norvasc] 5 mg PO DAILY 05/01/17 Oxycodone HCl/Acetaminophen 1 - 2 tab PO 4X/DAY PRN PRN 5 Days 05/10/17 [Percocet 5/325] #40 tab Smoking Status: Current every day smoker Physical Exam Vital Signs Temp Pulse Resp BP 98.3 F 99 16 152/94 H 06/13/17 10:23 06/13/17 10:23 06/13/17 10:23 06/13/17 10:23 Assessment/Plan The patient is to be evaluated and treated by otolaryngology, and will return thereafter for resumption of hyperbaric oxygen therapy treatments.
--- NOTE | 2017-07-07 21:52 | PCM.HBO.PN ---
History of Present Illness Date of Service: 07/07/17 Presenting Chief Complaint: Right knee ulcer, s/p debridement and skin grafting 05/09/17, with compromise of graft. RYAN SHELTON is a 61 year old currently undergoing hyperbaric oxygen therapy for compromised skin graft right knee after debridement and skin grafting 05/09/17. Progress: This session represents the 13th session of hyperbaric oxygen therapy treatments. Tolerance of hyperbaric oxygen therapy: Hyperbaric oxygen therapy was administered as per the facility's protocol. The patient tolerated hyperbaric oxygen therapy well, without complaints or complications. Upon emergence from the hyperbaric chamber, patient's vital signs remained stable. The patient was discharged in good condition. Right ear tube has been placed and he is having no more ear issues at this time. 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) nonhealing ulcer right knee Allergies/Adverse Reactions: Allergies Sulfa (Sulfonamide Antibiotics) Adverse Reaction (Verified 05/27/17 15:26) Other INFLAMMATION Home Medications: Ambulatory Orders Medication Instructions Recorded Multivit-Min/FA/Lycopene/Lut 1 ea PO DAILY 10/28/14 [Centrum Silver Tablet] Amlodipine Besylate [Norvasc] 5 mg PO DAILY 05/01/17 Oxycodone HCl/Acetaminophen 1 - 2 tab PO 4X/DAY PRN PRN 5 Days 05/10/17 [Percocet 5/325] #40 tab Smoking Status: Current every day smoker Physical Exam Vital Signs Temp Pulse Resp BP 98.3 F 99 16 152/94 H 06/13/17 10:23 06/13/17 10:23 06/13/17 10:23 06/13/17 10:23
--- NOTE | 2017-07-08 11:45 | PN.PCM_ITS ---
Type of Wound Date of Service: 07/07/17 Chief Complaint: Right knee ulcer, s/p debridement and skin grafting 05/09/17, with compromise of graft. History of Wound: Surgery 05/09/17 - Surgical preparation right knee with excisional debridement nonhealing ulcer and foreign body suture granuloma. 2. Reconstruction right knee ulcer with STSG from lower anterior abdominal wall ( 21 cm2) and placement of AWILDA NPWT. Operative culture - negative. He was placed on Levaquin perioperatively. Prealbumin from 05/10/17 was 19.8. Encourage nutritional supplementation with protein to help the healing process. It was noted at his first postop visit that there was some early compromise to his skin graft mostly at the edges and would benefit from some HBO treatments. Today he denies any fever. His appetite is good. Progress of Wound: Recent surgery on 05/09/17. - Physical Exam Vital Signs Temp Pulse Resp BP 98.3 F 99 16 152/94 H 06/13/17 10:23 06/13/17 10:23 06/13/17 10:23 06/13/17 10:23 Debridement Note Post-Debridement Measurements/Treatment WC - Nurse 2 - General Ulcer CM Notes Start: 05/27/17 15:04 Freq: Status: Active Protocol: Activity Type Activity Date Activity User E-Sign Co-Sign Detail Recorded Client Recorded Date Recorded By Document 05/27/17 15:51 [id number] 05/27/17 16:01 Document 06/09/17 11:47 [id number] 06/09/17 11:48 05/27/17 06/09/17 15:51 11:47 Wound Center Nurse 2 #1 Right Knee -Time 15:52 11:48 -Correct Patient Yes Yes -Correct Side, Site, Position Yes Yes -Correct Procedure Yes Yes -Procedure Performed Yes Yes -Type of Procedure Debridement Debridement -Clinical Debridement Selective Selective -Post Debridement Size (cm) - Length 4 4.2 -Post Debridement Size (cm) - Width 2.2 1.6 -Post Debridement Size (cm) - Depth 0.1 0.1 -Total Square Cm 8.8 6.72 -Wound/Ulcer Outcome Not Healed Not Healed -Ulcer Cleansing Rinsed/ Rinsed/ Irrigated with Irrigated with Saline Saline -Foul Odor after Cleansing No No -Bioengineered Tissue No No -Bleeding Controlled with Pressure Pressure -Treatment Response Procedure Procedure Tolerated Well Tolerated Well Pain Scale: 0-10 Numeric Is Patient Pain Free? Yes Yes Wound debrided: #1 Right knee with skin graft compromise. Laterality: Right Wound Grade/Stage: 3. Type of Debridement: Excisional debridement Anesthesia Used: 4% Lidocaine Solution Depth: Down to and including healthy tissue, in the subcutaneous layer Percentage of wound debrided: 100 Instrument Used: 3mm curette Tissue Removed: subcutaneous tissue. Severity: Fat Layer Exposed Amount of bleeding with debridement: Mild Bleeding Controlled with: Pressure Patient tolerated procedure well Assessment/Plan Assessment: 1. Nonhealing ulcer right knee, with recent skin grafting. 2. Early compromise skin graft right knee. 3. s/p right patellar tendon rupture repair in May 2016. 4. s/p excision sinus tract and debridement right knee wound in August 2016. 5. s/p surgical preparation right knee with incision and drainage and excision nonhealing infected ulcer and foreign body granuloma tract with 9 cm complex secondary wound closure in January 2017. 6. s/p surgical preparation right knee with excisional debridement nonhealing ulcer and foreign body suture granuloma and reconstruction right knee ulcer with STSG from lower anterior abdominal wall (21 cm2) and placement of AWILDA NPWT. 7. Smoker. Plan: The AWILDA NPWT was removed today. The skin graft shows good adherence and good vascular ingrowth. There is about 10% early compromise to the graft mostly at the edges. Applied Bactroban ointment to the skin graft which he will continue at home on a daily basis. Continue the GRANT wrap for compression. He is done with his Levaqiun as the operative culture was negative. Prealbumin from 05/10/17 was 19.8. Encourage nutritional supplementation with protein to help the healing process. He is a good candidate for HBO treatments because of some early compromise to his recently placed skin graft and would benefit from these treatments to help salvage the graft. He needs a pretreatment CXR. His ears are ok for the treatment. He will keep his right leg elevated when sitting. Encouraged the patient to stop smoking as it may have deleterious effects on wound healing. Followup 2 weeks.
== END 2017-06-14 23:59 ==
LOC: WC 10:00
PROVIDERS: Family Provider Family Medicine; PCP Family Medicine; Visit Provider Surgery
DX: T86.828 Other complications of skin graft (allograft) (autograft) (principal); L97.811 Non-pressure chronic ulcer of other part of right lower leg limited to breakdown of skin; F17.200 Nicotine dependence, unspecified, uncomplicated; Z79.899 Other long term (current) drug therapy
CPT/HCPCS: 97597; 99183; 99213; G0277; G0463

== ENCOUNTER 2017-07-10 10:00 | Outpatient (RCR) | payer BC, SELFPAY ==
[2017-06-15 01:15] VITALS: PULSE 99; RESP 16; TEMP 36.8
[2017-06-16 10:20] VITALS: BP 146/84; PULSE 93; RESP 16; TEMP 36.7
[2017-06-16 11:17] VITALS: BP 155/98; PULSE 95; RESP 18; TEMP 37.2
--- NOTE | 2017-06-16 17:51 | PN.PCM_ITS ---
Type of Wound Date of Service: 06/16/17 Chief Complaint: Nonhealing ulcer right knee, s/p debridement and skin grafting 05/09/17, with some early graft compromise. History of Wound: Surgery 05/09/17 - Surgical preparation right knee with excisional debridement nonhealing ulcer and foreign body suture granuloma. 2. Reconstruction right knee ulcer with STSG from lower anterior abdominal wall ( 21 cm2) and placement of AWILDA NPWT. Operative culture - negative. He was placed on Levaquin perioperatively. Prealbumin from 05/10/17 was 19.8. Encourage nutritional supplementation with protein to help the healing process. It was noted at his first postop visit that there was some early compromise to his skin graft mostly at the edges and now is mostly in the central aspect of the graft probably over the tendon. He would benefit from HBO treatments and was started. He initially had some trouble with his right ear and is scheduled to see ENT. Today he denies any fever. His appetite is good. Progress of Wound: Skin graft surgery on 05/09/17 with early graft compromise. - Physical Exam Vital Signs Temp Pulse Resp BP 98.9 F 95 18 155/98 H 06/16/17 11:17 06/16/17 11:17 06/16/17 11:17 06/16/17 11:17 Wound Measurements and Assessment WC - Nurse 1 - General Ulcer Measurement Start: 06/16/17 10:20 Freq: Status: Active Protocol: Activity Type Activity Date Activity User E-Sign Co-Sign Detail Recorded Client Recorded Date Recorded By Document 06/16/17 11:17 [id number] 06/16/17 11:20 06/16/17 11:17 Wound Center Nurse 1 [Ulcer Assessment] #1 Right Knee -Combined with other wound No -Current Size (cm) - Length 2.2 -Current Size (cm) - Width 1.5 -Current Size (cm) - Depth 0.1 -Total Square Cm 3.30 -Photo Taken No -Epithelialization Small 1-33% -Tunneling No -Undermining/Tunneling No -Circular Undermining No -Classification - Thickness Full Thickness without Exposed Support Structure -Exudate Amt Small (1-33%) -Exudate Type Serosanguineous -Wound Margin Distinct, Outline Attached -Granulation Amt None Present (0 %) -Granulation Quality N/A -Slough/Fibrin Yes -Necrosis Amt Large (67-100%) -Necrotic Tissue Type Adherent Slough -Structure Exposed Fascia Fat Layer Exposed -Texture (Loretta-wound Skin Appearance) Scarring -Moisture (Loretta-wound Skin Appearance No Abnormality ) -Color (Loretta-wound Skin Appearance) No Abnormality -Temperature (Loretta-wound Skin No Abnormality Appearance) (Pt Warm) -Tenderness on Palpation (Loretta-wound No Skin Appearance) -Ulcer Cleansing Rinsed/ Irrigated with Saline -Foul Odor after Cleansing No -Anesthetic Used 5% Lidocaine Gel [Edema Assessment] -Lower Limb Edema Present Yes -Right Calf (cm) 34.5 -Right Ankle (cm) 20.5 - Nurse 2 - General Ulcer CM Notes Start: 06/16/17 10:20 Freq: Status: Active Protocol: Activity Type Activity Date Activity User E-Sign Co-Sign Detail Recorded Client Recorded Date Recorded By Document 06/16/17 11:24 [id number] 06/16/17 11:25 06/16/17 11:24 Wound Center Nurse 2 [Procedure/Treatment] #1 Right Knee -Time 11:24 -Correct Patient Yes -Correct Side, Site, Position Yes -Correct Procedure Yes -Procedure Performed Yes -Type of Procedure Debridement -Clinical Debridement Selective -Post Debridement Size (cm) - Length 2.2 -Post Debridement Size (cm) - Width 1.5 -Post Debridement Size (cm) - Depth 0.1 -Total Square Cm 3.30 -Wound/Ulcer Outcome Not Healed -Ulcer Cleansing Rinsed/ Irrigated with Saline -Foul Odor after Cleansing No -Bioengineered Tissue No -Bleeding Controlled with Pressure -Treatment Response Procedure Tolerated Well [See Physician Procedure note for Specifics] Pain Scale: 0-10 Numeric [Pain] -Is Patient Pain Free? Yes Debridement Note Post-Debridement Measurements/Treatment - Nurse 2 - General Ulcer CM Notes Start: 06/16/17 10:20 Freq: Status: Active Protocol: Activity Type Activity Date Activity User E-Sign Co-Sign Detail Recorded Client Recorded Date Recorded By Document 06/16/17 11:24 [id number] 06/16/17 11:25 06/16/17 11:24 Wound Center Nurse 2 #1 Right Knee -Time 11:24 -Correct Patient Yes -Correct Side, Site, Position Yes -Correct Procedure Yes -Procedure Performed Yes -Type of Procedure Debridement -Clinical Debridement Selective -Post Debridement Size (cm) - Length 2.2 -Post Debridement Size (cm) - Width 1.5 -Post Debridement Size (cm) - Depth 0.1 -Total Square Cm 3.30 -Wound/Ulcer Outcome Not Healed -Ulcer Cleansing Rinsed/ Irrigated with Saline -Foul Odor after Cleansing No -Bioengineered Tissue No -Bleeding Controlled with Pressure -Treatment Response Procedure Tolerated Well Pain Scale: 0-10 Numeric Is Patient Pain Free? Yes Wound debrided: #1 Right knee with skin graft compromise. Laterality: Right Wound Grade/Stage: 3. Type of Debridement: Selective debridement Anesthesia Used: 4% Lidocaine Solution Depth: - - some superficial scabbing was debrided. Percentage of wound debrided: 100 Instrument Used: 3mm curette Tissue Removed: superficial scabbing from the recently placed skin graft. Severity: Limited To Skin Breakdown - superficial scabbing from the recently placed skin graft. Amount of bleeding with debridement: Mild Bleeding Controlled with: Pressure Patient tolerated procedure well Assessment/Plan Assessment: 1. Nonhealing ulcer right knee, with recent skin grafting. 2. Early compromise skin graft right knee. 3. s/p right patellar tendon rupture repair in May 2016. 4. s/p excision sinus tract and debridement right knee wound in August 2016. 5. s/p surgical preparation right knee with incision and drainage and excision nonhealing infected ulcer and foreign body granuloma tract with 9 cm complex secondary wound closure in January 2017. 6. s/p surgical preparation right knee with excisional debridement nonhealing ulcer and foreign body suture granuloma and reconstruction right knee ulcer with STSG from lower anterior abdominal wall (21 cm2) and placement of AWILDA NPWT. 7. Smoker. 5. s/p surgical preparation right knee with incision and drainage and excision nonhealing infected ulcer and foreign body granuloma tract with 9 cm complex secondary wound closure in January 2017. 6. s/p surgical preparation right knee with excisional debridement nonhealing ulcer and foreign body suture granuloma and reconstruction right knee ulcer with STSG from lower anterior abdominal wall (21 cm2) and placement of AWILDA NPWT. 7. Smoker. Plan: The skin graft shows good adherence and good vascular ingrowth at the edges. There is some early compromise to the graft mostly in the central aspect , about 15%. Continue Bactroban ointment to the skin graft which he will continue at home on a daily basis. Continue the GRANT wrap for compression. He is done with his Levaquin as the operative culture was negative. Prealbumin from 05/10/17 was 19.8. Encourage nutritional supplementation with protein to help the healing process. He is a good candidate for HBO treatments because of some early compromise to his recently placed skin graft and would benefit from these treatments to help salvage the graft. The HBO treatments were started and he had some trouble with his right ear. He is scheduled to see ENT. He will keep his right leg elevated when sitting. Encouraged the patient to stop smoking as it may have deleterious effects on wound healing. Followup one week.
--- NOTE | 2017-06-16 17:55 | PCM.HBO.PN ---
History of Present Illness Date of Service: 06/16/17 Presenting Chief Complaint: Nonhealing ulcer right knee, s/p debridement and skin grafting 05/09/17, with compromise of graft. RYAN SHELTON is a 61 year old currently undergoing hyperbaric oxygen therapy for compromised skin graft right knee after debridement and skin grafting 05/09/17. Progress: This session was stopped after 10 minutes because of right ear issues. There were no otoscope probes available in the department to check his ears. They are on back order. Tolerance of hyperbaric oxygen therapy: This session was stopped after 10 minutes because of right ear issues. Will make appt for ear tube placement by ENT. 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) nonhealing ulcer right knee Allergies/Adverse Reactions: Allergies Sulfa (Sulfonamide Antibiotics) Adverse Reaction (Verified 05/27/17 15:26) Other INFLAMMATION Home Medications: Ambulatory Orders Medication Instructions Recorded Multivit-Min/FA/Lycopene/Lut 1 ea PO DAILY 10/28/14 [Centrum Silver Tablet] Amlodipine Besylate [Norvasc] 5 mg PO DAILY 05/01/17 Oxycodone HCl/Acetaminophen 1 - 2 tab PO 4X/DAY PRN PRN 5 Days 05/10/17 [Percocet 5/325] #40 tab Smoking Status: Current every day smoker Physical Exam Vital Signs Temp Pulse Resp BP 98.9 F 95 18 155/98 H 06/16/17 11:17 06/16/17 11:17 06/16/17 11:17 06/16/17 11:17
[2017-06-20 10:26] VITALS: BP 144/82; PULSE 99; RESP 18; TEMP 36.6
--- NOTE | 2017-06-20 12:40 | PCM.HBO.PN ---
History of Present Illness Date of Service: 06/20/17 Presenting Chief Complaint: Right knee ulcer, s/p debridement and skin grafting 05/09/17, with compromise of graft. RYAN SHELTON is a 61 year old currently undergoing hyperbaric oxygen therapy for Progress: Compromise of graft site to the knee Tolerance of hyperbaric oxygen therapy: 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) nonhealing ulcer right knee Allergies/Adverse Reactions: Allergies Sulfa (Sulfonamide Antibiotics) Adverse Reaction (Verified 05/27/17 15:26) Other INFLAMMATION Home Medications: Ambulatory Orders Medication Instructions Recorded Multivit-Min/FA/Lycopene/Lut 1 ea PO DAILY 10/28/14 [Centrum Silver Tablet] Amlodipine Besylate [Norvasc] 5 mg PO DAILY 05/01/17 Oxycodone HCl/Acetaminophen 1 - 2 tab PO 4X/DAY PRN PRN 5 Days 05/10/17 [Percocet 5/325] #40 tab Smoking Status: Current every day smoker Physical Exam Vital Signs Temp Pulse Resp BP 97.9 F 99 18 144/82 H 06/20/17 10:26 06/20/17 10:26 06/20/17 10:26 06/20/17 10:26 Assessment/Plan Partial skin graft left knee compromised Charged in good condition Vital signs stable Return for further HBO treatments
[2017-06-23 09:26] VITALS: BP 133/94; PULSE 122; RESP 16; TEMP 37.2
[2017-06-23 10:26] VITALS: BP 144/82; PULSE 102; RESP 18; TEMP 36.7
--- NOTE | 2017-06-23 20:19 | PCM.WC.PN ---
Type of Wound Date of Service: 06/23/17 Chief Complaint: Nonhealing ulcer right knee, s/p debridement and skin grafting 05/09/17, with some early graft compromise. History of Wound: Surgery 05/09/17 - Surgical preparation right knee with excisional debridement nonhealing ulcer and foreign body suture granuloma. 2. Reconstruction right knee ulcer with STSG from lower anterior abdominal wall (21 cm2) and placement of AIWLDA NPWT. Operative culture - negative. He was placed on Levaquin perioperatively. Prealbumin from 05/10/17 was 19.8. Encourage nutritional supplementation with protein to help the healing process. It was noted at his first postop visit that there was some early compromise to his skin graft mostly at the edges and now is mostly in the central aspect of the graft probably over the tendon. He would benefit from HBO treatments and was started. He initially had some trouble with his right ear and saw ENT and had an ear tube placed. Today he denies any fever. His appetite is good. Progress of Wound: Skin graft surgery on 05/09/17 with early graft compromise. - Physical Exam Vital Signs Temp Pulse Resp BP 98.1 F 102 H 18 144/82 H 06/23/17 10:26 06/23/17 10:26 06/23/17 10:26 06/23/17 10:26 Wound Measurements and Assessment WC - Nurse 1 - General Ulcer Measurement Start: 06/16/17 10:20 Freq: Status: Active Protocol: Activity Type Activity Date Activity User E-Sign Co-Sign Detail Recorded Client Recorded Date Recorded By Document 06/23/17 09:26 DV [id number] 06/23/17 09:30 DV 06/23/17 09:26 Wound Center Nurse 1 [Ulcer Assessment] #1 Right Knee -Combined with other wound No -Current Size (cm) - Length 2.2 -Current Size (cm) - Width 1.4 -Current Size (cm) - Depth 0.2 -Total Square Cm 3.08 -Photo Taken No -Epithelialization None Present -Tunneling No -Undermining/Tunneling No -Circular Undermining No -Exudate Amt Small (1-33%) -Exudate Type Serosanguineous -Wound Margin Flat & Intact -Granulation Amt Small (1-33%) -Granulation Quality Pale -Slough/Fibrin Yes -Necrosis Amt Large (67-100%) -Necrotic Tissue Type Adherent Slough -Structure Exposed None/Limited to Skin Breakdown -Texture (Loretta-wound Skin Appearance) Assessed Localized Edema -Moisture (Loretta-wound Skin Appearance No Abnormality ) Assessed -Color (Loretta-wound Skin Appearance) No Abnormality Assessed -Temperature (Loretta-wound Skin No Abnormality Appearance) (Pt Warm) -Tenderness on Palpation (Loretta-wound No Skin Appearance) -Ulcer Cleansing Rinsed/ Irrigated with Saline -Foul Odor after Cleansing No -Anesthetic Used 5% Lidocaine Gel - Nurse 2 - General Ulcer CM Notes Start: 06/16/17 10:20 Freq: Status: Active Protocol: Activity Type Activity Date Activity User E-Sign Co-Sign Detail Recorded Client Recorded Date Recorded By Document 06/23/17 09:53 [id number] 06/23/17 09:53 06/23/17 09:53 Wound Center Nurse 2 [Procedure/Treatment] -Time 09:53 -Correct Patient Yes -Correct Side, Site, Position Yes -Correct Procedure Yes -Procedure Performed Yes -Type of Procedure Debridement -Clinical Debridement Subcutaneous -Post Debridement Size (cm) - Length 2.2 -Post Debridement Size (cm) - Width 1.5 -Post Debridement Size (cm) - Depth 0.3 -Total Square Cm 3.30 -Wound/Ulcer Outcome Not Healed -Ulcer Cleansing Rinsed/ Irrigated with Saline -Foul Odor after Cleansing No -Bioengineered Tissue No -Bleeding Controlled with Pressure -Treatment Response Procedure Tolerated Well [See Physician Procedure note for Specifics] Pain Scale: 0-10 Numeric [Pain] -Is Patient Pain Free? Yes Debridement Note Post-Debridement Measurements/Treatment - Nurse 2 - General Ulcer CM Notes Start: 06/16/17 10:20 Freq: Status: Active Protocol: Activity Type Activity Date Activity User E-Sign Co-Sign Detail Recorded Client Recorded Date Recorded By Document 06/16/17 11:24 [id number] 06/16/17 11:25 Document 06/23/17 09:53 [id number] 06/23/17 09:53 06/16/17 06/23/17 11:24 09:53 Wound Center Nurse 2 #1 Right Knee -Time 11:24 09:53 -Correct Patient Yes Yes -Correct Side, Site, Position Yes Yes -Correct Procedure Yes Yes -Procedure Performed Yes Yes -Type of Procedure Debridement Debridement -Clinical Debridement Selective Subcutaneous -Post Debridement Size (cm) - Length 2.2 2.2 -Post Debridement Size (cm) - Width 1.5 1.5 -Post Debridement Size (cm) - Depth 0.1 0.3 -Total Square Cm 3.30 3.30 -Wound/Ulcer Outcome Not Healed Not Healed -Ulcer Cleansing Rinsed/ Rinsed/ Irrigated with Irrigated with Saline Saline -Foul Odor after Cleansing No No -Bioengineered Tissue No No -Bleeding Controlled with Pressure Pressure -Treatment Response Procedure Procedure Tolerated Well Tolerated Well Pain Scale: 0-10 Numeric Is Patient Pain Free? Yes Yes Wound debrided: #1 Right knee with skin graft compromise. Laterality: Right Wound Grade/Stage: 3. Type of Debridement: Excisional debridement Anesthesia Used: 4% Lidocaine Solution Depth: Down to and including healthy tissue, in the subcutaneous layer Percentage of wound debrided: 100 Instrument Used: 5mm curette Tissue Removed: subcutaneous tissue. Severity: Fat Layer Exposed Amount of bleeding with debridement: Mild - good bleeding noted from the compromised portion of the graft over the tendon. Bleeding Controlled with: Pressure Patient tolerated procedure well Assessment/Plan Assessment: 1. Nonhealing ulcer right knee, with recent skin grafting. 2. Early compromise skin graft right knee. 3. s/p right patellar tendon rupture repair in May 2016. 4. s/p excision sinus tract and debridement right knee wound in August 2016. 5. s/p surgical preparation right knee with incision and drainage and excision nonhealing infected ulcer and foreign body granuloma tract with 9 cm complex secondary wound closure in January 2017. 6. s/p surgical preparation right knee with excisional debridement nonhealing ulcer and foreign body suture granuloma and reconstruction right knee ulcer with STSG from lower anterior abdominal wall (21 cm2) and placement of AWILDA NPWT. 7. Smoker. Plan: The skin graft shows good adherence and good vascular ingrowth at the edges. There is some early compromise to the graft mostly in the central aspect, about 15%. The central aspect of the compromise is a little deeper and would benefit from some Tiana dressing changes. Will stop the Bactroban ointment to the skin graft at this time. Continue the GRANT wrap for compression. He is done with his Levaquin as the operative culture was negative. Prealbumin from 05/10/17 was 19.8. Encourage nutritional supplementation with protein to help the healing process. He is a good candidate for HBO treatments because of some early compromise to his recently placed skin graft and would benefit from these treatments to help salvage the graft. The HBO treatments were started and he had some trouble with his right ear. He saw ENT and an ear tube was placed. He will keep his right leg elevated when sitting. Encouraged the patient to stop smoking as it may have deleterious effects on wound healing. Followup one week.
--- NOTE | 2017-06-23 20:23 | PCM.HBO.PN ---
History of Present Illness Date of Service: 06/23/17 Presenting Chief Complaint: Nonhealing ulcer right knee, s/p debridement and skin grafting 05/09/17, with compromise of graft. RYAN SHELTON is a 61 year old currently undergoing hyperbaric oxygen therapy for compromised skin graft right knee after debridement and skin grafting 05/09/17. Progress: This session represents the 4th session of hyperbaric oxygen therapy treatments. Tolerance of hyperbaric oxygen therapy: Hyperbaric oxygen therapy was administered as per the facility's protocol. The patient tolerated hyperbaric oxygen therapy well, without complaints or complications. Upon emergence from the hyperbaric chamber, patient's vital signs remained stable. The patient was discharged in good condition. Right ear tube has been placed and he is having no more ear issues at this time. 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) nonhealing ulcer right knee Allergies/Adverse Reactions: Allergies Sulfa (Sulfonamide Antibiotics) Adverse Reaction (Verified 05/27/17 15:26) Other INFLAMMATION Home Medications: Ambulatory Orders Medication Instructions Recorded Multivit-Min/FA/Lycopene/Lut 1 ea PO DAILY 10/28/14 [Centrum Silver Tablet] Amlodipine Besylate [Norvasc] 5 mg PO DAILY 05/01/17 Oxycodone HCl/Acetaminophen 1 - 2 tab PO 4X/DAY PRN PRN 5 Days 05/10/17 [Percocet 5/325] #40 tab Smoking Status: Current every day smoker Physical Exam Vital Signs Temp Pulse Resp BP 98.1 F 102 H 18 144/82 H 06/23/17 10:26 06/23/17 10:26 06/23/17 10:26 06/23/17 10:26
[2017-06-24 11:34] VITALS: BP 133/99; BP 134/83; PULSE 102; PULSE 77; RESP 16; TEMP 36.3; TEMP 36.8
--- NOTE | 2017-06-24 12:33 | PCM.HBO.PN ---
History of Present Illness Date of Service: 06/24/17 Presenting Chief Complaint: Right knee ulcer, s/p debridement and skin grafting 05/09/17, with compromise of graft. RYAN SHELTON is a 61 year old currently undergoing hyperbaric oxygen therapy for right knee ulcer, s/p debridement and skin grafting 05/09/17, with compromise of graft site to the right knee. Progress: The patient appears to be tolerating hyperbaric oxygen therapy well. Today's session represents the fifth such session of hyperbaric oxygen therapy. Tolerance of hyperbaric oxygen therapy: Hyperbaric oxygen therapy was administered as per the facility's protocol. The patient tolerated hyperbaric oxygen therapy well, without complaints or complications. Upon emergence from the hyperbaric chamber, patient's vital signs remained stable. The patient was discharged in good condition. 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) nonhealing ulcer right knee Allergies/Adverse Reactions: Allergies Sulfa (Sulfonamide Antibiotics) Adverse Reaction (Verified 05/27/17 15:26) Other INFLAMMATION Home Medications: Ambulatory Orders Medication Instructions Recorded Multivit-Min/FA/Lycopene/Lut 1 ea PO DAILY 10/28/14 [Centrum Silver Tablet] Amlodipine Besylate [Norvasc] 5 mg PO DAILY 05/01/17 Oxycodone HCl/Acetaminophen 1 - 2 tab PO 4X/DAY PRN PRN 5 Days 05/10/17 [Percocet 5/325] #40 tab Smoking Status: Current every day smoker Physical Exam Vital Signs Temp Pulse Resp BP 97.3 F L 102 H 16 134/83 H 06/24/17 11:34 06/24/17 11:34 06/24/17 11:34 06/24/17 11:34 General: Alert, Oriented x3, Cooperative, No apparent distress, Well developed, Well nourished HEENT: Atraumatic, PERRLA, EOMI, Normocephalic Lungs: Normal air movement Psych/Mental Status: Normal Affect, Appropriate, Alert and oriented to time, place, person, mood and affect Assessment/Plan The patient appears to be tolerating hyperbaric oxygen therapy well, which will be continued as per the patient's medical plan.
[2017-06-27 10:33] VITALS: BP 146/86; BP 164/74; PULSE 83; PULSE 84; RESP 16; TEMP 36.8; TEMP 37.2
--- NOTE | 2017-06-27 13:52 | PCM.HBO.PN ---
History of Present Illness Date of Service: 06/27/17 Presenting Chief Complaint: Right knee ulcer, s/p debridement and skin grafting 05/09/17, with compromise of graft. RYAN SHELTON is a 61 year old currently undergoing hyperbaric oxygen therapy for right knee ulcer, s/p debridement and skin grafting 05/09/17, with compromise of graft site to the right knee. Progress: The patient appears to be tolerating hyperbaric oxygen therapy well. Today's session represents the fifth such session of hyperbaric oxygen therapy. Tolerance of hyperbaric oxygen therapy: Hyperbaric oxygen therapy was administered as per the facility's protocol. The patient tolerated hyperbaric oxygen therapy well, without complaints or complications. Upon emergence from the hyperbaric chamber, patient's vital signs remained stable. The patient was discharged in good condition. 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) nonhealing ulcer right knee Allergies/Adverse Reactions: Allergies Sulfa (Sulfonamide Antibiotics) Adverse Reaction (Verified 05/27/17 15:26) Other INFLAMMATION Home Medications: Ambulatory Orders Medication Instructions Recorded Multivit-Min/FA/Lycopene/Lut 1 ea PO DAILY 10/28/14 [Centrum Silver Tablet] Amlodipine Besylate [Norvasc] 5 mg PO DAILY 05/01/17 Oxycodone HCl/Acetaminophen 1 - 2 tab PO 4X/DAY PRN PRN 5 Days 05/10/17 [Percocet 5/325] #40 tab Smoking Status: Current every day smoker Physical Exam Vital Signs Temp Pulse Resp BP 98.9 F 84 16 164/74 H 06/27/17 10:33 06/27/17 10:33 06/27/17 10:33 06/27/17 10:33 Assessment/Plan The patient appears to be tolerating hyperbaric oxygen therapy well, which will be continued as per the patient's medical plan.
[2017-06-30 10:40] VITALS: BP 135/81; PULSE 102; RESP 18; TEMP 37.1
[2017-06-30 12:27] VITALS: BP 141/86; PULSE 87; RESP 18; TEMP 35.2
--- NOTE | 2017-06-30 23:21 | PN.PCM_ITS ---
Type of Wound Date of Service: 06/30/17 Chief Complaint: Nonhealing ulcer right knee, s/p debridement and skin grafting 05/09/17, with some early graft compromise. History of Wound: Surgery 05/09/17 - Surgical preparation right knee with excisional debridement nonhealing ulcer and foreign body suture granuloma. 2. Reconstruction right knee ulcer with STSG from lower anterior abdominal wall ( 21 cm2) and placement of AWILDA NPWT. Wound care - Tiana. Operative culture - negative. He was placed on Levaquin perioperatively. Prealbumin from 05/10/17 was 19.8. Encourage nutritional supplementation with protein to help the healing process. It was noted at his first postop visit that there was some early compromise to his skin graft mostly at the edges and now is mostly in the central aspect of the graft probably over the tendon. He would benefit from HBO treatments and was started. He initially had some trouble with his right ear and saw ENT and had an ear tube placed. Today he denies any fever. His appetite is good. Progress of Wound: Skin graft surgery on 05/09/17 with early graft compromise. - Physical Exam Vital Signs Temp Pulse Resp BP 95.3 F L 87 18 141/86 H 06/30/17 12:27 06/30/17 12:27 06/30/17 12:27 06/30/17 12:27 Wound Measurements and Assessment WC - Nurse 1 - General Ulcer Measurement Start: 06/16/17 10:20 Freq: Status: Active Protocol: Activity Type Activity Date Activity User E-Sign Co-Sign Detail Recorded Client Recorded Date Recorded By Document 06/30/17 12:27 DV [id number] 06/30/17 12:31 DV 06/30/17 12:27 Wound Center Nurse 1 [Ulcer Assessment] #1 Right Knee -Combined with other wound No -Current Size (cm) - Length 1.6 -Current Size (cm) - Width 1.5 -Current Size (cm) - Depth 0.3 -Total Square Cm 2.40 -Date of Last Picture (Recall this 06/30/17 field) -Photo Taken Yes -Epithelialization Small 1-33% -Tunneling No -Undermining/Tunneling No -Circular Undermining No -Classification - Thickness Full Thickness without Exposed Support Structure -Exudate Amt Small (1-33%) -Exudate Type Purulent -Wound Margin Distinct, Outline Attached -Granulation Amt None Present (0 %) -Granulation Quality N/A -Slough/Fibrin Yes -Necrosis Amt Large (67-100%) -Necrotic Tissue Type Adherent Slough -Structure Exposed None/Limited to Skin Breakdown -Texture (Loretta-wound Skin Appearance) Assessed Scarring -Moisture (Loretta-wound Skin Appearance Assessed ) Weeping -Color (Loretta-wound Skin Appearance) No Abnormality Assessed -Temperature (Loretta-wound Skin No Abnormality Appearance) (Pt Warm) -Ulcer Cleansing Rinsed/ Irrigated with Saline -Foul Odor after Cleansing No -Anesthetic Used 4% Lidocaine Solution - Nurse 2 - General Ulcer CM Notes Start: 06/16/17 10:20 Freq: Status: Active Protocol: Activity Type Activity Date Activity User E-Sign Co-Sign Detail Recorded Client Recorded Date Recorded By Document 06/30/17 13:19 [id number] 06/30/17 13:20 06/30/17 13:19 Wound Center Nurse 2 [Procedure/Treatment] -Time 13:19 -Correct Patient Yes -Correct Side, Site, Position Yes -Correct Procedure Yes -Procedure Performed Yes -Type of Procedure Debridement -Clinical Debridement Subcutaneous -Post Debridement Size (cm) - Length 1.9 -Post Debridement Size (cm) - Width 1.3 -Post Debridement Size (cm) - Depth 0.3 -Total Square Cm 2.47 -Wound/Ulcer Outcome Not Healed -Ulcer Cleansing Rinsed/ Irrigated with Saline -Foul Odor after Cleansing No -Bioengineered Tissue No -Bleeding Controlled with Pressure -Treatment Response Procedure Tolerated Well [See Physician Procedure note for Specifics] Pain Scale: 0-10 Numeric [Pain] -Is Patient Pain Free? Yes Debridement Note Post-Debridement Measurements/Treatment - Nurse 2 - General Ulcer CM Notes Start: 06/16/17 10:20 Freq: Status: Active Protocol: Activity Type Activity Date Activity User E-Sign Co-Sign Detail Recorded Client Recorded Date Recorded By Document 06/16/17 11:24 [id number] 06/16/17 11:25 Document 06/23/17 09:53 [id number] 06/23/17 09:53 Document 06/30/17 13:19 [email or web address] 06/30/17 13:20 06/16/17 06/23/17 06/30/17 11:24 09:53 13:19 Wound Center Nurse 2 #1 Right Knee -Time 11: 09:53 13:19 -Correct Patient Yes Yes Yes -Correct Side, Site, Position Yes Yes Yes -Correct Procedure Yes Yes Yes -Procedure Performed Yes Yes Yes -Type of Procedure Debridement Debridement Debridement -Clinical Debridement Selective Subcutaneous Subcutaneous -Post Debridement Size (cm) - Length 2.2 2.2 1.9 -Post Debridement Size (cm) - Width 1.5 1.5 1.3 -Post Debridement Size (cm) - Depth 0.1 0.3 0.3 -Total Square Cm 3.30 3.30 2.47 -Wound/Ulcer Outcome Not Healed Not Healed Not Healed -Ulcer Cleansing Rinsed/ Rinsed/ Rinsed/ Irrigated with Irrigated with Irrigated with Saline Saline Saline -Foul Odor after Cleansing No No No -Bioengineered Tissue No No No -Bleeding Controlled with Pressure Pressure Pressure -Treatment Response Procedure Procedure Procedure Tolerated Well Tolerated Well Tolerated Well Pain Scale: 0-10 Numeric Is Patient Pain Free? Yes Yes Yes Wound debrided: #1 Right knee with skin graft compromise. Laterality: Right Wound Grade/Stage: 3. Type of Debridement: Excisional debridement Anesthesia Used: 4% Lidocaine Solution Depth: Down to and including healthy tissue, in the subcutaneous layer Percentage of wound debrided: 100 Instrument Used: 3mm curette Tissue Removed: subcutaneous tissue. Severity: Fat Layer Exposed Amount of bleeding with debridement: Mild Bleeding Controlled with: Pressure Patient tolerated procedure well Assessment/Plan Assessment: 1. Nonhealing ulcer right knee, with recent skin grafting. 2. Early compromise skin graft right knee. 3. s/p right patellar tendon rupture repair in May 2016. 4. s/p excision sinus tract and debridement right knee wound in August 2016. 5. s/p surgical preparation right knee with incision and drainage and excision nonhealing infected ulcer and foreign body granuloma tract with 9 cm complex secondary wound closure in January 2017. 6. s/p surgical preparation right knee with excisional debridement nonhealing ulcer and foreign body suture granuloma and reconstruction right knee ulcer with STSG from lower anterior abdominal wall (21 cm2) and placement of AWILDA NPWT. 7. Smoker. Plan: The Tiana is drying out the wound and it is getting hard and difficult to remove. Will change to Collagen Hydrogel to be placed on the area of skin graft compromise. The rest of the skin graft shows good adherence and good vascular ingrowth at the edges. The early compromise to the graft is mostly in the central aspect, about 15%. Continue the GRANT wrap for compression. He is done with his Levaquin as the operative culture was negative. Prealbumin from 05/10/17 was 19.8. Encourage nutritional supplementation with protein to help the healing process. He is getting HBO treatments because for the early compromise to his recently placed skin graft and improvements are seen in order to help salvage the graft. The HBO treatments were started and he had some trouble with his right ear. He saw ENT and an ear tube was placed. He will keep his right leg elevated when sitting. Encouraged the patient to stop smoking as it may have deleterious effects on wound healing. Followup one week.
--- NOTE | 2017-06-30 23:30 | PCM.HBO.PN ---
History of Present Illness Date of Service: 06/30/17 Presenting Chief Complaint: Nonhealing ulcer right knee, s/p debridement and skin grafting 05/09/17, with compromise of graft. RYAN SHELTON is a 61 year old currently undergoing hyperbaric oxygen therapy for compromised skin graft right knee after debridement and skin grafting 05/09/17. Progress: This session represents the 8th session of hyperbaric oxygen therapy treatments. Tolerance of hyperbaric oxygen therapy: Hyperbaric oxygen therapy was administered as per the facility's protocol. The patient tolerated hyperbaric oxygen therapy well, without complaints or complications. Upon emergence from the hyperbaric chamber, patient's vital signs remained stable. The patient was discharged in good condition. Right ear tube has been placed and he is having no more ear issues at this time. 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) nonhealing ulcer right knee Allergies/Adverse Reactions: Allergies Sulfa (Sulfonamide Antibiotics) Adverse Reaction (Verified 05/27/17 15:26) Other INFLAMMATION Home Medications: Ambulatory Orders Medication Instructions Recorded Multivit-Min/FA/Lycopene/Lut 1 ea PO DAILY 10/28/14 [Centrum Silver Tablet] Amlodipine Besylate [Norvasc] 5 mg PO DAILY 05/01/17 Oxycodone HCl/Acetaminophen 1 - 2 tab PO 4X/DAY PRN PRN 5 Days 05/10/17 [Percocet 5/325] #40 tab Smoking Status: Current every day smoker Physical Exam Vital Signs Temp Pulse Resp BP 95.3 F L 87 18 141/86 H 06/30/17 12:27 06/30/17 12:27 06/30/17 12:27 06/30/17 12:27
[2017-07-01 11:04] VITALS: BP 147/80; BP 160/94; PULSE 110; PULSE 80; RESP 18; TEMP 36.8; TEMP 37.2
--- NOTE | 2017-07-01 12:29 | PCM.HBO.PN ---
History of Present Illness Date of Service: 07/01/17 Presenting Chief Complaint: Nonhealing ulcer right knee, s/p debridement and skin grafting 05/09/17, with compromise of graft. RYAN SHELTON is a 61 year old currently undergoing hyperbaric oxygen therapy for compromised skin graft right knee after debridement and skin grafting 05/09/17. Progress: This session represents the 9th session of hyperbaric oxygen therapy treatments. Tolerance of hyperbaric oxygen therapy: Hyperbaric oxygen therapy was administered as per the facility's protocol. The patient tolerated hyperbaric oxygen therapy well, without complaints or complications. Upon emergence from the hyperbaric chamber, patient's vital signs remained stable. The patient was discharged in good condition. Right ear tube has been placed and he is having no more ear issues at this time. 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) nonhealing ulcer right knee Allergies/Adverse Reactions: Allergies Sulfa (Sulfonamide Antibiotics) Adverse Reaction (Verified 05/27/17 15:26) Other INFLAMMATION Home Medications: Ambulatory Orders Medication Instructions Recorded Multivit-Min/FA/Lycopene/Lut 1 ea PO DAILY 10/28/14 [Centrum Silver Tablet] Amlodipine Besylate [Norvasc] 5 mg PO DAILY 05/01/17 Oxycodone HCl/Acetaminophen 1 - 2 tab PO 4X/DAY PRN PRN 5 Days 05/10/17 [Percocet 5/325] #40 tab Smoking Status: Current every day smoker Physical Exam Vital Signs Temp Pulse Resp BP 98.9 F 110 H 18 147/80 H 07/01/17 11:04 07/01/17 11:04 07/01/17 11:04 07/01/17 11:04 General: Alert, Oriented x3, Cooperative, No apparent distress, Well developed, Well nourished HEENT: Atraumatic, PERRLA, EOMI, Normocephalic Lungs: Normal air movement Psych/Mental Status: Normal Affect, Appropriate, Alert and oriented to time, place, person, mood and affect Assessment/Plan Patient appears to be tolerating hyperbaric oxygen therapy well, which will be continued as per the patient's medical plan.
[2017-07-02 11:31] VITALS: BP 154/89; BP 160/99; PULSE 77; PULSE 98; RESP 16; TEMP 36.8; TEMP 36.9
--- NOTE | 2017-07-02 23:37 | PCM.HBO.PN ---
History of Present Illness Date of Service: 07/02/17 Presenting Chief Complaint: Nonhealing ulcer right knee, s/p debridement and skin grafting 05/09/17, with compromise of graft. RYAN SHELTON is a 61 year old currently undergoing hyperbaric oxygen therapy for compromised skin graft right knee after debridement and skin grafting 05/09/17. Progress: The patient is tolerating Hyperbaric oxygen therapy well. Tolerance of hyperbaric oxygen therapy: Hyperbaric oxygen therapy was administered as per the facility's protocol. The patient tolerated hyperbaric oxygen therapy well, without complaints or complications. Upon emergence from the hyperbaric chamber, patient's vital signs remained stable. 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) nonhealing ulcer right knee Allergies/Adverse Reactions: Allergies Sulfa (Sulfonamide Antibiotics) Adverse Reaction (Verified 05/27/17 15:26) Other INFLAMMATION Home Medications: Ambulatory Orders Medication Instructions Recorded Multivit-Min/FA/Lycopene/Lut 1 ea PO DAILY 10/28/14 [Centrum Silver Tablet] Amlodipine Besylate [Norvasc] 5 mg PO DAILY 05/01/17 Oxycodone HCl/Acetaminophen 1 - 2 tab PO 4X/DAY PRN PRN 5 Days 05/10/17 [Percocet 5/325] #40 tab Smoking Status: Current every day smoker Physical Exam Vital Signs Temp Pulse Resp BP 98.4 F 98 16 154/89 H 07/02/17 11:31 07/02/17 11:31 07/02/17 11:31 07/02/17 11:31 General: Alert, Oriented x3, Cooperative, No apparent distress HEENT: Atraumatic, Normocephalic, TM's Clear - Right ear tube in place. Lungs: Normal air movement Cardiovascular: Regular rate Psych/Mental Status: Normal Affect Assessment/Plan Patient appears to be tolerating hyperbaric oxygen therapy well, which will be continued as per the patient's medical plan.
[2017-07-03 11:51] VITALS: BP 137/95; PULSE 93; RESP 16; TEMP 36.6; TEMP 36.8
--- NOTE | 2017-07-03 18:48 | PCM.HBO.PN ---
History of Present Illness Date of Service: 07/03/17 Presenting Chief Complaint: Nonhealing ulcer right knee, s/p debridement and skin grafting 05/09/17, with compromise of graft. RYAN SHELTON is a 61 year old currently undergoing hyperbaric oxygen therapy for compromised skin graft right knee after debridement and skin grafting 05/09/17. Progress: The patient is tolerating Hyperbaric oxygen therapy well. Tolerance of hyperbaric oxygen therapy: Hyperbaric oxygen therapy was administered as per the facility's protocol. The patient tolerated hyperbaric oxygen therapy well, without complaints or complications. Upon emergence from the hyperbaric chamber, patient's vital signs remained stable. 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) nonhealing ulcer right knee Allergies/Adverse Reactions: Allergies Sulfa (Sulfonamide Antibiotics) Adverse Reaction (Verified 05/27/17 15:26) Other INFLAMMATION Home Medications: Ambulatory Orders Medication Instructions Recorded Multivit-Min/FA/Lycopene/Lut 1 ea PO DAILY 10/28/14 [Centrum Silver Tablet] Amlodipine Besylate [Norvasc] 5 mg PO DAILY 05/01/17 Oxycodone HCl/Acetaminophen 1 - 2 tab PO 4X/DAY PRN PRN 5 Days 05/10/17 [Percocet 5/325] #40 tab Smoking Status: Current every day smoker Physical Exam Vital Signs Temp Pulse Resp BP 98.2 F 93 16 137/95 H 07/03/17 11:51 07/03/17 11:51 07/03/17 11:51 07/03/17 11:51 General: Alert, Oriented x3, Cooperative, No apparent distress HEENT: Atraumatic, Normocephalic, TM's Clear Lungs: Normal air movement Psych/Mental Status: Normal Affect Assessment/Plan Patient appears to be tolerating hyperbaric oxygen therapy well, which will be continued as per the patient's medical plan.
[2017-07-04 10:53] VITALS: BP 155/99; PULSE 103; RESP 16; TEMP 36.4
--- NOTE | 2017-07-04 11:23 | PCM.HBO.PN ---
History of Present Illness Date of Service: 07/04/17 Presenting Chief Complaint: Nonhealing ulcer right knee, s/p debridement and skin grafting 05/09/17, with compromise of graft. RYAN SHELTON is a 61 year old currently undergoing hyperbaric oxygen therapy for compromised skin graft right knee after debridement and skin grafting 05/09/17. Progress: The patient is tolerating Hyperbaric oxygen therapy well. Tolerance of hyperbaric oxygen therapy: Hyperbaric oxygen therapy was administered as per the facility's protocol. The patient tolerated hyperbaric oxygen therapy well, without complaints or complications. Upon emergence from the hyperbaric chamber, patient's vital signs remained stable. 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) nonhealing ulcer right knee Allergies/Adverse Reactions: Allergies Sulfa (Sulfonamide Antibiotics) Adverse Reaction (Verified 05/27/17 15:26) Other INFLAMMATION Home Medications: Ambulatory Orders Medication Instructions Recorded Multivit-Min/FA/Lycopene/Lut 1 ea PO DAILY 10/28/14 [Centrum Silver Tablet] Amlodipine Besylate [Norvasc] 5 mg PO DAILY 05/01/17 Oxycodone HCl/Acetaminophen 1 - 2 tab PO 4X/DAY PRN PRN 5 Days 05/10/17 [Percocet 5/325] #40 tab Smoking Status: Current every day smoker Physical Exam Vital Signs Temp Pulse Resp BP 97.5 F L 103 H 16 155/99 H 07/04/17 10:53 07/04/17 10:53 07/04/17 10:53 07/04/17 10:53 Assessment/Plan Patient appears to be tolerating hyperbaric oxygen therapy well, which will be continued as per the patient's medical plan.
[2017-07-07 10:21] VITALS: BP 152/92; BP 158/92; PULSE 112; PULSE 76; RESP 16; RESP 18; TEMP 36.4; TEMP 36.8
[2017-07-07 12:12] VITALS: BP 152/92; PULSE 76; RESP 18; TEMP 36.4
[2017-07-08 10:05] VITALS: BP 159/94; BP 161/87; PULSE 108; PULSE 78; RESP 16; TEMP 36.3; TEMP 36.4
--- NOTE | 2017-07-08 12:19 | PCM.HBO.PN ---
History of Present Illness Date of Service: 07/08/17 Presenting Chief Complaint: Nonhealing ulcer right knee, s/p debridement and skin grafting 05/09/17, with compromise of graft. RYAN SHELTON is a 61 year old currently undergoing hyperbaric oxygen therapy for compromised skin graft right knee after debridement and skin grafting 05/09/17. Progress: The patient is tolerating Hyperbaric oxygen therapy well. Today's session of hyperbaric oxygen therapy represents the 14th such session. Tolerance of hyperbaric oxygen therapy: Hyperbaric oxygen therapy was administered as per the facility's protocol. The patient tolerated hyperbaric oxygen therapy well, without complaints or complications. Upon emergence from the hyperbaric chamber, the patient's vital signs remained stable. 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) nonhealing ulcer right knee Allergies/Adverse Reactions: Allergies Sulfa (Sulfonamide Antibiotics) Adverse Reaction (Verified 05/27/17 15:26) Other INFLAMMATION Home Medications: Ambulatory Orders Medication Instructions Recorded Multivit-Min/FA/Lycopene/Lut 1 ea PO DAILY 10/28/14 [Centrum Silver Tablet] Amlodipine Besylate [Norvasc] 5 mg PO DAILY 05/01/17 Oxycodone HCl/Acetaminophen 1 - 2 tab PO 4X/DAY PRN PRN 5 Days 05/10/17 [Percocet 5/325] #40 tab Smoking Status: Current every day smoker Physical Exam Vital Signs Temp Pulse Resp BP 97.5 F L 76 18 152/92 H 07/07/17 12:12 07/07/17 12:12 07/07/17 12:12 07/07/17 12:12 General: Alert, Oriented x3, Cooperative, No apparent distress, Well developed, Well nourished HEENT: Atraumatic, PERRLA, EOMI, Normocephalic Lungs: Normal air movement Psych/Mental Status: Normal Affect, Appropriate, Alert and oriented to time, place, person, mood and affect Assessment/Plan The patient appears to be tolerating hyperbaric oxygen therapy well, which will be continued as per the patient's medical plan.
[2017-07-09 10:34] VITALS: BP 144/91; BP 154/90; PULSE 118; PULSE 75; RESP 16; RESP 18; TEMP 36.5; TEMP 36.9
--- NOTE | 2017-07-09 17:07 | PCM.HBO.PN ---
History of Present Illness Date of Service: 07/09/17 Presenting Chief Complaint: Nonhealing ulcer right knee, s/p debridement and skin grafting 05/09/17, with compromise of graft. RYAN SHELTON is a 61 year old currently undergoing hyperbaric oxygen therapy for compromised skin graft right knee after debridement and skin grafting 05/09/17. Progress: The patient is tolerating Hyperbaric oxygen therapy well. Tolerance of hyperbaric oxygen therapy: Hyperbaric oxygen therapy was administered as per the facility's protocol. The patient tolerated hyperbaric oxygen therapy well, without complaints or complications. Upon emergence from the hyperbaric chamber, the patient's vital signs remained stable. 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) nonhealing ulcer right knee Allergies/Adverse Reactions: Allergies Sulfa (Sulfonamide Antibiotics) Adverse Reaction (Verified 05/27/17 15:26) Other INFLAMMATION Home Medications: Ambulatory Orders Medication Instructions Recorded Multivit-Min/FA/Lycopene/Lut 1 ea PO DAILY 10/28/14 [Centrum Silver Tablet] Amlodipine Besylate [Norvasc] 5 mg PO DAILY 05/01/17 Oxycodone HCl/Acetaminophen 1 - 2 tab PO 4X/DAY PRN PRN 5 Days 05/10/17 [Percocet 5/325] #40 tab Smoking Status: Current every day smoker Physical Exam Vital Signs Temp Pulse Resp BP 98.5 F 118 H 18 154/90 H 07/09/17 10:34 07/09/17 10:34 07/09/17 10:34 07/09/17 10:34 General: Alert, Oriented x3, Cooperative, No apparent distress HEENT: Atraumatic, Normocephalic Lungs: Normal air movement Cardiovascular: Tachycardic Psych/Mental Status: Normal Affect Assessment/Plan The patient appears to be tolerating hyperbaric oxygen therapy well, which will be continued as per the patient's medical plan.
[2017-07-10 10:36] VITALS: BP 146/96; BP 154/95; PULSE 108; PULSE 76; RESP 16; TEMP 36.4; TEMP 36.9
--- NOTE | 2017-07-10 10:39 | PCM.HBO.PN ---
History of Present Illness Date of Service: 07/10/17 Presenting Chief Complaint: Nonhealing ulcer right knee, s/p debridement and skin grafting 05/09/17, with compromise of graft. RYAN SHELTON is a 61 year old currently undergoing hyperbaric oxygen therapy for compromised skin graft right knee after debridement and skin grafting 05/09/17. Progress: The patient is tolerating Hyperbaric oxygen therapy well. Tolerance of hyperbaric oxygen therapy: Hyperbaric oxygen therapy was administered as per the facility's protocol. The patient tolerated hyperbaric oxygen therapy well, without complaints or complications. Upon emergence from the hyperbaric chamber, the patient's vital signs remained stable. 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) nonhealing ulcer right knee Allergies/Adverse Reactions: Allergies Sulfa (Sulfonamide Antibiotics) Adverse Reaction (Verified 05/27/17 15:26) Other INFLAMMATION Home Medications: Ambulatory Orders Medication Instructions Recorded Multivit-Min/FA/Lycopene/Lut 1 ea PO DAILY 10/28/14 [Centrum Silver Tablet] Amlodipine Besylate [Norvasc] 5 mg PO DAILY 05/01/17 Oxycodone HCl/Acetaminophen 1 - 2 tab PO 4X/DAY PRN PRN 5 Days 05/10/17 [Percocet 5/325] #40 tab Smoking Status: Current every day smoker Physical Exam Vital Signs Temp Pulse Resp BP 98.4 F 108 H 16 146/96 H 07/10/17 10:36 07/10/17 10:36 07/10/17 10:36 07/10/17 10:36 General: Alert, Oriented x3, Cooperative, No apparent distress HEENT: Atraumatic, Normocephalic, TM's Clear Lungs: Normal air movement Cardiovascular: Regular rate Psych/Mental Status: Normal Affect Assessment/Plan The patient appears to be tolerating hyperbaric oxygen therapy well, which will be continued as per the patient's medical plan.
== END 2017-07-14 23:59 ==
LOC: WC 10:00
PROVIDERS: Family Provider Family Medicine; PCP Family Medicine; Visit Provider Surgery
DX: T86.828 Other complications of skin graft (allograft) (autograft) (principal); L97.811 Non-pressure chronic ulcer of other part of right lower leg limited to breakdown of skin; F17.200 Nicotine dependence, unspecified, uncomplicated
CPT/HCPCS: 11042; 97597; 99183; G0277

== ENCOUNTER 2017-08-12 12:30 | Outpatient (RCR) | payer BC, SELFPAY ==
[2017-07-15 00:56] VITALS: PULSE 76; RESP 16; TEMP 36.4
[2017-07-15 10:13] VITALS: BP 145/91; PULSE 121; RESP 16; TEMP 36.5; TEMP 36.9
--- NOTE | 2017-07-15 13:02 | PCM.HBO.PN ---
History of Present Illness Date of Service: 07/15/17 Presenting Chief Complaint: Nonhealing ulcer right knee, s/p debridement and skin grafting 05/09/17, with compromise of graft. RYAN SHELTON is a 61 year old currently undergoing hyperbaric oxygen therapy for nonhealing ulcer right knee, s/p debridement and skin grafting 05/09/17, with compromise of graft. RYAN SHELTON is a 61 year old currently undergoing hyperbaric oxygen therapy for compromised skin graft right knee after debridement and skin grafting 05/09/17. Progress: The patient appears to be tolerating hyperbaric oxygen therapy well. Tolerance of hyperbaric oxygen therapy: Hyperbaric oxygen therapy was administered as per the facility's protocol. Today's session represents the 17th such session of hyperbaric oxygen therapy. Hyperbaric oxygen therapy was tolerated well, without complaints or complications. Emergence from the hyperbaric chamber, the patient's vital signs remained stable. He was discharged in good condition. 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) nonhealing ulcer right knee Allergies/Adverse Reactions: Allergies Sulfa (Sulfonamide Antibiotics) Adverse Reaction (Verified 05/27/17 15:26) Other INFLAMMATION Home Medications: Ambulatory Orders Medication Instructions Recorded Multivit-Min/FA/Lycopene/Lut 1 ea PO DAILY 10/28/14 [Centrum Silver Tablet] Amlodipine Besylate [Norvasc] 5 mg PO DAILY 05/01/17 Oxycodone HCl/Acetaminophen 1 - 2 tab PO 4X/DAY PRN PRN 5 Days 05/10/17 [Percocet 5/325] #40 tab Smoking Status: Current every day smoker Physical Exam Vital Signs Temp Pulse Resp BP 98.4 F 121 H 16 145/91 H 07/15/17 10:13 07/15/17 10:13 07/15/17 10:13 07/15/17 10:13 General: Alert, Oriented x3, Cooperative, No apparent distress, Well developed, Well nourished HEENT: Atraumatic, PERRLA, EOMI, Normocephalic Lungs: Normal air movement Psych/Mental Status: Normal Affect, Appropriate, Alert and oriented to time, place, person, mood and affect Assessment/Plan The patient appears to be tolerating hyperbaric oxygen therapy well, which will be continued as per the patient's medical plan.
[2017-07-15 13:54] VITALS: BP 159/94; PULSE 94; RESP 18; TEMP 37
--- NOTE | 2017-07-15 20:22 | PCM.WC.PN ---
Type of Wound Date of Service: 07/15/17 Chief Complaint: Nonhealing ulcer right knee, s/p debridement and skin grafting 05/09/17, with some early graft compromise. History of Wound: Surgery 05/09/17 - Surgical preparation right knee with excisional debridement nonhealing ulcer and foreign body suture granuloma. 2. Reconstruction right knee ulcer with STSG from lower anterior abdominal wall (21 cm2) and placement of AWILDA NPWT. Wound care - Collagen Hydrogel. Operative culture - negative. He was placed on Levaquin perioperatively. Prealbumin from 05/10/17 was 19.8. Encourage nutritional supplementation with protein to help the healing process. It was noted at his first postop visit that there was some early compromise to his skin graft mostly at the edges and now is mostly in the central aspect of the graft probably over the tendon. He would benefit from HBO treatments and was started. He initially had some trouble with his right ear and saw ENT and had an ear tube placed. Today he denies any fever. His appetite is good. Progress of Wound: Improved. - Physical Exam Vital Signs Temp Pulse Resp BP 98.6 F 94 18 159/94 H 07/15/17 13:54 07/15/17 13:54 07/15/17 13:54 07/15/17 13:54 Wound Measurements and Assessment WC - Nurse 1 - General Ulcer Measurement Start: 07/15/17 10:12 Freq: Status: Active Protocol: Activity Type Activity Date Activity User E-Sign Co-Sign Detail Recorded Client Recorded Date Recorded By Document 07/15/17 13:54 [id number] 07/15/17 13:57 07/15/17 13:54 Wound Center Nurse 1 [Ulcer Assessment] #1 Right Knee -Combined with other wound No -Current Size (cm) - Length 0.5 -Current Size (cm) - Width 0.4 -Current Size (cm) - Depth 0.1 -Total Square Cm 0.20 -Photo Taken No -Epithelialization Small 1-33% -Tunneling No -Undermining/Tunneling No -Circular Undermining No -Classification - Thickness Full Thickness without Exposed Support Structure -Exudate Amt Small (1-33%) -Exudate Type Serous -Wound Margin Distinct, Outline Attached -Granulation Amt Large (67-100%) -Granulation Quality Pale -Slough/Fibrin Yes -Necrosis Amt Small (1-33%) -Necrotic Tissue Type Adherent Slough -Structure Exposed Fascia Fat Layer Exposed -Texture (Loretta-wound Skin Appearance) Scarring -Moisture (Loretta-wound Skin Appearance No Abnormality ) -Color (Loretta-wound Skin Appearance) Palor -Temperature (Loretta-wound Skin No Abnormality Appearance) (Pt Warm) -Tenderness on Palpation (Loretta-wound No Skin Appearance) -Ulcer Cleansing Rinsed/ Irrigated with Saline -Foul Odor after Cleansing No -Anesthetic Used 5% Lidocaine Gel [Edema Assessment] -Lower Limb Edema Present Yes -Right Calf (cm) 34.0 -Right Ankle (cm) 20.0 - Nurse 2 - General Ulcer CM Notes Start: 07/15/17 10:12 Freq: Status: Active Protocol: Activity Type Activity Date Activity User E-Sign Co-Sign Detail Recorded Client Recorded Date Recorded By Document 07/15/17 14:05 [id number] 07/15/17 14:08 07/15/17 14:05 Wound Center Nurse 2 [Procedure/Treatment] #1 Right Knee -Time 14:06 -Correct Patient Yes -Correct Side, Site, Position Yes -Correct Procedure Yes -Procedure Performed Yes -Type of Procedure Debridement -Clinical Debridement Subcutaneous -Post Debridement Size (cm) - Length 1.0 -Post Debridement Size (cm) - Width 0.5 -Post Debridement Size (cm) - Depth 0.1 -Total Square Cm 0.50 -Wound/Ulcer Outcome Not Healed -Ulcer Cleansing Rinsed/ Irrigated with Saline -Foul Odor after Cleansing No -Bioengineered Tissue No -Bleeding Controlled with Pressure -Treatment Response Procedure Tolerated Well [See Physician Procedure note for Specifics] Pain Scale: 0-10 Numeric [Pain] -Is Patient Pain Free? Yes Debridement Note Post-Debridement Measurements/Treatment - Nurse 2 - General Ulcer CM Notes Start: 07/15/17 10:12 Freq: Status: Active Protocol: Activity Type Activity Date Activity User E-Sign Co-Sign Detail Recorded Client Recorded Date Recorded By Document 07/15/17 14:05 [id number] 07/15/17 14:08 07/15/17 14:05 Wound Center Nurse 2 #1 Right Knee -Time 14:06 -Correct Patient Yes -Correct Side, Site, Position Yes -Correct Procedure Yes -Procedure Performed Yes -Type of Procedure Debridement -Clinical Debridement Subcutaneous -Post Debridement Size (cm) - Length 1.0 -Post Debridement Size (cm) - Width 0.5 -Post Debridement Size (cm) - Depth 0.1 -Total Square Cm 0.50 -Wound/Ulcer Outcome Not Healed -Ulcer Cleansing Rinsed/ Irrigated with Saline -Foul Odor after Cleansing No -Bioengineered Tissue No -Bleeding Controlled with Pressure -Treatment Response Procedure Tolerated Well Pain Scale: 0-10 Numeric Is Patient Pain Free? Yes Wound debrided: #1 Right knee with skin graft compromise. Laterality: Right Wound Grade/Stage: 3. Type of Debridement: Excisional debridement Anesthesia Used: 4% Lidocaine Solution Depth: Down to and including healthy tissue, in the subcutaneous layer Percentage of wound debrided: 100 Instrument Used: 3mm curette, - - I used scissors to remove a suture from the graft. Tissue Removed: subcutaneous tissue. Severity: Fat Layer Exposed Amount of bleeding with debridement: Mild Bleeding Controlled with: Pressure Patient tolerated procedure well Assessment/Plan Assessment: 1. Nonhealing ulcer right knee, with recent skin grafting. 2. Early compromise skin graft right knee. 3. s/p right patellar tendon rupture repair in May 2016. 4. s/p excision sinus tract and debridement right knee wound in August 2016. 5. s/p surgical preparation right knee with incision and drainage and excision nonhealing infected ulcer and foreign body granuloma tract with 9 cm complex secondary wound closure in January 2017. 6. s/p surgical preparation right knee with excisional debridement nonhealing ulcer and foreign body suture granuloma and reconstruction right knee ulcer with STSG from lower anterior abdominal wall (21 cm2) and placement of AWILDA NPWT. 7. Smoker. Plan: Continue Collagen Hydrogel to be placed on the area of skin graft compromise. The rest of the skin graft shows good adherence and good vascular ingrowth at the edges. The early compromise to the graft is mostly in the central aspect, about 15%. Continue the GRANT wrap for compression. He is done with his Levaquin as the operative culture was negative. Prealbumin from 05/10/17 was 19.8. Encourage nutritional supplementation with protein to help the healing process. He is getting HBO treatments because for the early compromise to his recently placed skin graft and improvements are seen in order to help salvage the graft. The HBO treatments were started and he had some trouble with his right ear. He saw ENT and an ear tube was placed. He will keep his right leg elevated when sitting. Encouraged the patient to stop smoking as it may have deleterious effects on wound healing. He is scheduled to return to work tomorrow 07/16/17. Followup one week.
[2017-07-16 11:07] VITALS: BP 115/87; BP 153/86; PULSE 127; PULSE 79; RESP 16; RESP 18; TEMP 36.4
--- NOTE | 2017-07-16 19:39 | PCM.HBO.PN ---
History of Present Illness Date of Service: 07/16/17 Presenting Chief Complaint: Nonhealing ulcer right knee, s/p debridement and skin grafting 05/09/17, with compromise of graft. RYAN SHELTON is a 61 year old currently undergoing hyperbaric oxygen therapy for nonhealing ulcer right knee, s/p debridement and skin grafting 05/09/17, with compromise of graft. RYAN SHELTON is a 61 year old currently undergoing hyperbaric oxygen therapy for compromised skin graft right knee after debridement and skin grafting 05/09/17. Progress: The patient appears to be tolerating hyperbaric oxygen therapy well. Tolerance of hyperbaric oxygen therapy: Hyperbaric oxygen therapy was administered as per the facility's protocol. Hyperbaric oxygen therapy was tolerated well, without complaints or complications. Emergence from the hyperbaric chamber, the patient's vital signs remained stable. He was discharged in good condition. 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) nonhealing ulcer right knee Allergies/Adverse Reactions: Allergies Sulfa (Sulfonamide Antibiotics) Adverse Reaction (Verified 05/27/17 15:26) Other INFLAMMATION Home Medications: Ambulatory Orders Medication Instructions Recorded Multivit-Min/FA/Lycopene/Lut 1 ea PO DAILY 10/28/14 [Centrum Silver Tablet] Amlodipine Besylate [Norvasc] 5 mg PO DAILY 05/01/17 Oxycodone HCl/Acetaminophen 1 - 2 tab PO 4X/DAY PRN PRN 5 Days 05/10/17 [Percocet 5/325] #40 tab Smoking Status: Current every day smoker Physical Exam Vital Signs Temp Pulse Resp BP 97.6 F L 127 H 18 115/87 H 07/16/17 11:07 07/16/17 11:07 07/16/17 11:07 07/16/17 11:07 General: No apparent distress HEENT: Atraumatic, Normocephalic Lungs: Normal air movement Psych/Mental Status: Normal Affect Assessment/Plan The patient appears to be tolerating hyperbaric oxygen therapy well, which will be continued as per the patient's medical plan.
[2017-07-17 11:20] VITALS: BP 138/83; PULSE 122; RESP 16; TEMP 37.1
--- NOTE | 2017-07-17 14:43 | PCM.HBO.PN ---
History of Present Illness Date of Service: 07/17/17 Presenting Chief Complaint: Nonhealing ulcer right knee, s/p debridement and skin grafting 05/09/17, with compromise of graft. RYAN SHELTON is a 61 year old currently undergoing hyperbaric oxygen therapy for nonhealing ulcer right knee, s/p debridement and skin grafting 05/09/17, with compromise of graft. RYAN SHELTON is a 61 year old currently undergoing hyperbaric oxygen therapy for compromised skin graft right knee after debridement and skin grafting 05/09/17. Progress: The patient appears to be tolerating hyperbaric oxygen therapy well. Tolerance of hyperbaric oxygen therapy: Hyperbaric oxygen therapy was administered as per the facility's protocol. Hyperbaric oxygen therapy was tolerated well, without complaints or complications. Emergence from the hyperbaric chamber, the patient's vital signs remained stable. He was discharged in good condition. 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) nonhealing ulcer right knee Allergies/Adverse Reactions: Allergies Sulfa (Sulfonamide Antibiotics) Adverse Reaction (Verified 05/27/17 15:26) Other INFLAMMATION Home Medications: Ambulatory Orders Medication Instructions Recorded Multivit-Min/FA/Lycopene/Lut 1 ea PO DAILY 10/28/14 [Centrum Silver Tablet] Amlodipine Besylate [Norvasc] 5 mg PO DAILY 05/01/17 Oxycodone HCl/Acetaminophen 1 - 2 tab PO 4X/DAY PRN PRN 5 Days 05/10/17 [Percocet 5/325] #40 tab Smoking Status: Current every day smoker Physical Exam Vital Signs Temp Pulse Resp BP 98.8 F 122 H 16 138/83 H 07/17/17 11:20 07/17/17 11:20 07/17/17 11:20 07/17/17 11:20 General: Alert, Oriented x3, Cooperative, No apparent distress HEENT: Atraumatic, Normocephalic Lungs: Normal air movement Cardiovascular: Tachycardic Psych/Mental Status: Normal Affect Assessment/Plan The patient appears to be tolerating hyperbaric oxygen therapy well, which will be continued as per the patient's medical plan.
[2017-07-18 10:33] VITALS: BP 136/87; BP 149/80; PULSE 119; PULSE 80; RESP 16; RESP 18; TEMP 36.4; TEMP 36.5
--- NOTE | 2017-07-18 14:22 | PCM.HBO.PN ---
History of Present Illness Date of Service: 07/18/17 Presenting Chief Complaint: Nonhealing ulcer right knee, s/p debridement and skin grafting 05/09/17, with compromise of graft. RYAN SHELTON is a 61 year old currently undergoing hyperbaric oxygen therapy for nonhealing ulcer right knee, s/p debridement and skin grafting 05/09/17, with compromise of graft. RYAN SHELTON is a 61 year old currently undergoing hyperbaric oxygen therapy for compromised skin graft right knee after debridement and skin grafting 05/09/17. Progress: The patient appears to be tolerating hyperbaric oxygen therapy well. Tolerance of hyperbaric oxygen therapy: Hyperbaric oxygen therapy was administered as per the facility's protocol. Hyperbaric oxygen therapy was tolerated well, without complaints or complications. Emergence from the hyperbaric chamber, the patient's vital signs remained stable. He was discharged in good condition. 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) nonhealing ulcer right knee Allergies/Adverse Reactions: Allergies Sulfa (Sulfonamide Antibiotics) Adverse Reaction (Verified 05/27/17 15:26) Other INFLAMMATION Home Medications: Ambulatory Orders Medication Instructions Recorded Multivit-Min/FA/Lycopene/Lut 1 ea PO DAILY 10/28/14 [Centrum Silver Tablet] Amlodipine Besylate [Norvasc] 5 mg PO DAILY 05/01/17 Oxycodone HCl/Acetaminophen 1 - 2 tab PO 4X/DAY PRN PRN 5 Days 05/10/17 [Percocet 5/325] #40 tab Smoking Status: Current every day smoker Physical Exam Vital Signs Temp Pulse Resp BP 97.7 F L 119 H 18 149/80 H 07/18/17 10:33 07/18/17 10:33 07/18/17 10:33 07/18/17 10:33 Assessment/Plan The patient appears to be tolerating hyperbaric oxygen therapy well, which will be continued as per the patient's medical plan.
[2017-07-21 10:10] VITALS: BP 144/83; BP 144/97; PULSE 107; PULSE 91; RESP 16; RESP 20; TEMP 36.4; TEMP 36.6
[2017-07-21 12:02] VITALS: BP 144/97; PULSE 91; RESP 16; TEMP 36.9
--- NOTE | 2017-07-21 21:51 | PN.PCM_ITS ---
Type of Wound Date of Service: 07/21/17 Chief Complaint: Nonhealing ulcer right knee, s/p debridement and skin grafting 05/09/17, with some early graft compromise. History of Wound: Surgery 05/09/17 - Surgical preparation right knee with excisional debridement nonhealing ulcer and foreign body suture granuloma. 2. Reconstruction right knee ulcer with STSG from lower anterior abdominal wall ( 21 cm2) and placement of AWILDA NPWT. Wound care - Collagen Hydrogel. Operative culture - negative. He was placed on Levaquin perioperatively. Prealbumin from 05/10/17 was 19.8. Encourage nutritional supplementation with protein to help the healing process. It was noted at his first postop visit that there was some early compromise to his skin graft mostly at the edges and now is mostly in the central aspect of the graft probably over the tendon. He would benefit from HBO treatments and was started. He initially had some trouble with his right ear and saw ENT and had an ear tube placed. Today he denies any fever. His appetite is good. He has started back to work and is doing ok. Progress of Wound: Improved. - Physical Exam Vital Signs Temp Pulse Resp BP 98.4 F 91 16 144/97 H 07/21/17 12:02 07/21/17 12:02 07/21/17 12:02 07/21/17 12:02 Wound Measurements and Assessment WC - Nurse 1 - General Ulcer Measurement Start: 07/15/17 10:12 Freq: Status: Active Protocol: Activity Type Activity Date Activity User E-Sign Co-Sign Detail Recorded Client Recorded Date Recorded By Document 07/21/17 12:02 [facility] [id number] 07/21/17 12:05 [facility] 07/21/17 12:02 Wound Center Nurse 1 [Ulcer Assessment] #1 Right Knee -Combined with other wound No -Current Size (cm) - Length 1.4 -Current Size (cm) - Width 1 -Current Size (cm) - Depth 0.2 -Total Square Cm 1.4 -Photo Taken No -Epithelialization None Present -Tunneling No -Undermining/Tunneling No -Circular Undermining No -Exudate Amt Small (1-33%) -Exudate Type Serous -Wound Margin Distinct, Outline Attached -Granulation Amt None Present (0 %) -Slough/Fibrin Yes -Necrosis Amt Large (67-100%) -Necrotic Tissue Type Adherent Slough -Structure Exposed N/A -Texture (Loretta-wound Skin Appearance) Scarring -Moisture (Loretta-wound Skin Appearance Dry/Scaly ) -Color (Loretta-wound Skin Appearance) Assessed -Temperature (Loretta-wound Skin No Abnormality Appearance) (Pt Warm) -Tenderness on Palpation (Loretta-wound No Skin Appearance) -Ulcer Cleansing Rinsed/ Irrigated with Saline -Foul Odor after Cleansing No -Anesthetic Used 5% Lidocaine Gel - Nurse 2 - General Ulcer CM Notes Start: 07/15/17 10:12 Freq: Status: Active Protocol: Activity Type Activity Date Activity User E-Sign Co-Sign Detail Recorded Client Recorded Date Recorded By Document 07/21/17 12:37 [id number] 07/21/17 12:37 07/21/17 12:37 Wound Center Nurse 2 [Procedure/Treatment] -Time 12:37 -Correct Patient Yes -Correct Side, Site, Position Yes -Correct Procedure Yes -Procedure Performed Yes -Type of Procedure Debridement -Clinical Debridement Subcutaneous -Post Debridement Size (cm) - Length 0.4 -Post Debridement Size (cm) - Width 0.3 -Post Debridement Size (cm) - Depth 0.2 -Total Square Cm 0.12 -Wound/Ulcer Outcome Not Healed -Ulcer Cleansing Rinsed/ Irrigated with Saline -Foul Odor after Cleansing No -Bioengineered Tissue No -Bleeding Controlled with Pressure -Treatment Response Procedure Tolerated Well [See Physician Procedure note for Specifics] Pain Scale: 0-10 Numeric [Pain] -Is Patient Pain Free? Yes Debridement Note Post-Debridement Measurements/Treatment - Nurse 2 - General Ulcer CM Notes Start: 07/15/17 10:12 Freq: Status: Active Protocol: Activity Type Activity Date Activity User E-Sign Co-Sign Detail Recorded Client Recorded Date Recorded By Document 07/15/17 14:05 [id number] 07/15/17 14:08 Document 07/21/17 12:37 [id number] 07/21/17 12:37 07/15/17 07/21/17 14:05 12:37 Wound Center Nurse 2 #1 Right Knee -Time 14:06 12:37 -Correct Patient Yes Yes -Correct Side, Site, Position Yes Yes -Correct Procedure Yes Yes -Procedure Performed Yes Yes -Type of Procedure Debridement Debridement -Clinical Debridement Subcutaneous Subcutaneous -Post Debridement Size (cm) - Length 1.0 0.4 -Post Debridement Size (cm) - Width 0.5 0.3 -Post Debridement Size (cm) - Depth 0.1 0.2 -Total Square Cm 0.50 0.12 -Wound/Ulcer Outcome Not Healed Not Healed -Ulcer Cleansing Rinsed/ Rinsed/ Irrigated with Irrigated with Saline Saline -Foul Odor after Cleansing No No -Bioengineered Tissue No No -Bleeding Controlled with Pressure Pressure -Treatment Response Procedure Procedure Tolerated Well Tolerated Well Pain Scale: 0-10 Numeric Is Patient Pain Free? Yes Yes Wound debrided: #1 Right knee with skin graft compromise. Laterality: Right Wound Grade/Stage: 3. Type of Debridement: Excisional debridement Anesthesia Used: 4% Lidocaine Solution Depth: Down to and including healthy tissue, in the subcutaneous layer Percentage of wound debrided: 100 Instrument Used: 3mm curette Tissue Removed: subcutaneous tissue. Severity: Fat Layer Exposed Amount of bleeding with debridement: Mild Bleeding Controlled with: Pressure Patient tolerated procedure well Assessment/Plan Assessment: 1. Nonhealing ulcer right knee, with recent skin grafting. 2. Early compromise skin graft right knee. 3. s/p right patellar tendon rupture repair in May 2016. 4. s/p excision sinus tract and debridement right knee wound in August 2016. 5. s/p surgical preparation right knee with incision and drainage and excision nonhealing infected ulcer and foreign body granuloma tract with 9 cm complex secondary wound closure in January 2017. 6. s/p surgical preparation right knee with excisional debridement nonhealing ulcer and foreign body suture granuloma and reconstruction right knee ulcer with STSG from lower anterior abdominal wall (21 cm2) and placement of AWILDA NPWT. 7. Smoker. Plan: Continue Collagen Hydrogel to be placed on the area of skin graft compromise. The rest of the skin graft shows good adherence and good vascular ingrowth at the edges. The early compromise to the graft is mostly in the central aspect, about 15%. Continue the GRANT wrap for compression. He is done with his Levaquin as the operative culture was negative. Prealbumin from was 19.8. Encourage nutritional supplementation with protein to help the healing process. He is getting HBO treatments because for the early compromise to his recently placed skin graft and improvements are seen in order to help salvage the graft. The HBO treatments were started and he had some trouble with his right ear. He saw ENT and an ear tube was placed. He will keep his right leg elevated when sitting. Encouraged the patient to stop smoking as it may have deleterious effects on wound healing. He has returned to work on 07/16/17 and is doing ok. Followup one week.
--- NOTE | 2017-07-21 21:56 | PCM.HBO.PN ---
History of Present Illness Date of Service: 07/21/17 Presenting Chief Complaint: Nonhealing ulcer right knee, s/p debridement and skin grafting 05/09/17, with compromise of graft. RYAN SHELTON is a 61 year old currently undergoing hyperbaric oxygen therapy for compromised skin graft right knee after debridement and skin grafting 05/09/17. Progress: This session represents the 21st session of hyperbaric oxygen therapy treatments. Tolerance of hyperbaric oxygen therapy: Hyperbaric oxygen therapy was administered as per the facility's protocol. The patient tolerated hyperbaric oxygen therapy well, without complaints or complications. Upon emergence from the hyperbaric chamber, patient's vital signs remained stable. The patient was discharged in good condition. Right ear tube has been placed and he is having no more ear issues at this time. 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) nonhealing ulcer right knee Allergies/Adverse Reactions: Allergies Sulfa (Sulfonamide Antibiotics) Adverse Reaction (Verified 05/27/17 15:26) Other INFLAMMATION Home Medications: Ambulatory Orders Medication Instructions Recorded Multivit-Min/FA/Lycopene/Lut 1 ea PO DAILY 10/28/14 [Centrum Silver Tablet] Amlodipine Besylate [Norvasc] 5 mg PO DAILY 05/01/17 Oxycodone HCl/Acetaminophen 1 - 2 tab PO 4X/DAY PRN PRN 5 Days 05/10/17 [Percocet 5/325] #40 tab Smoking Status: Current every day smoker Physical Exam Vital Signs Temp Pulse Resp BP 98.4 F 91 16 144/97 H 07/21/17 12:02 07/21/17 12:02 07/21/17 12:02 07/21/17 12:02
[2017-07-22 10:14] VITALS: BP 149/85; BP 151/85; PULSE 117; PULSE 76; RESP 16; TEMP 36.4; TEMP 36.6
--- NOTE | 2017-07-22 14:03 | PCM.HBO.PN ---
History of Present Illness Date of Service: 07/22/17 Presenting Chief Complaint: Nonhealing ulcer right knee, s/p debridement and skin grafting 05/09/17, with compromise of graft. RYAN SHELTON is a 61 year old currently undergoing hyperbaric oxygen therapy for nonhealing ulcer right knee, s/p debridement and skin grafting 05/09/17, with compromise of graft. RYAN SHELTON is a 61 year old currently undergoing hyperbaric oxygen therapy for compromised skin graft right knee after debridement and skin grafting 05/09/17. Progress: The patient appears to be tolerating hyperbaric oxygen therapy well. Today's session represents the 22nd such session of hyperbaric oxygen therapy. Tolerance of hyperbaric oxygen therapy: Hyperbaric oxygen therapy was administered as per the facility's protocol. Hyperbaric oxygen therapy was tolerated well, without complaints or complications. Upon emergence from the hyperbaric chamber, the patient's vital signs remained stable. He was discharged in good condition. 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) nonhealing ulcer right knee Allergies/Adverse Reactions: Allergies Sulfa (Sulfonamide Antibiotics) Adverse Reaction (Verified 05/27/17 15:26) Other INFLAMMATION Home Medications: Ambulatory Orders Medication Instructions Recorded Multivit-Min/FA/Lycopene/Lut 1 ea PO DAILY 10/28/14 [Centrum Silver Tablet] Amlodipine Besylate [Norvasc] 5 mg PO DAILY 05/01/17 Oxycodone HCl/Acetaminophen 1 - 2 tab PO 4X/DAY PRN PRN 5 Days 05/10/17 [Percocet 5/325] #40 tab Smoking Status: Current every day smoker Physical Exam Vital Signs Temp Pulse Resp BP 98 F 117 H 16 149/85 H 07/22/17 10:14 07/22/17 10:14 07/22/17 10:14 07/22/17 10:14 General: Alert, Oriented x3, Cooperative, No apparent distress, Well developed, Well nourished HEENT: Atraumatic, PERRLA, EOMI, Normocephalic Lungs: Normal air movement Psych/Mental Status: Normal Affect, Appropriate, Alert and oriented to time, place, person, mood and affect Assessment/Plan The patient appears to be tolerating hyperbaric oxygen therapy well, which will be continued as per the patient's medical plan.
[2017-07-23 10:26] VITALS: BP 106/69; BP 123/75; PULSE 109; PULSE 78; RESP 16; TEMP 36.5
--- NOTE | 2017-07-23 13:13 | PCM.HBO.PN ---
History of Present Illness Date of Service: 07/23/17 Presenting Chief Complaint: Nonhealing ulcer right knee, s/p debridement and skin grafting 05/09/17, with compromise of graft. YRAN SHELTON is a 61 year old currently undergoing hyperbaric oxygen therapy for nonhealing ulcer right knee, s/p debridement and skin grafting 05/09/17, with compromise of graft. Progress: The patient appears to be tolerating hyperbaric oxygen therapy well. Tolerance of hyperbaric oxygen therapy: Hyperbaric oxygen therapy was administered as per the facility's protocol. Hyperbaric oxygen therapy was tolerated well, without complaints or complications. Upon emergence from the hyperbaric chamber, the patient's vital signs remained stable. He was discharged in good condition. 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) nonhealing ulcer right knee Allergies/Adverse Reactions: Allergies Sulfa (Sulfonamide Antibiotics) Adverse Reaction (Verified 05/27/17 15:26) Other INFLAMMATION Home Medications: Ambulatory Orders Medication Instructions Recorded Multivit-Min/FA/Lycopene/Lut 1 ea PO DAILY 10/28/14 [Centrum Silver Tablet] Amlodipine Besylate [Norvasc] 5 mg PO DAILY 05/01/17 Oxycodone HCl/Acetaminophen 1 - 2 tab PO 4X/DAY PRN PRN 5 Days 05/10/17 [Percocet 5/325] #40 tab Smoking Status: Current every day smoker Physical Exam Vital Signs Temp Pulse Resp BP 97.7 F L 109 H 16 106/69 07/23/17 10:26 07/23/17 10:26 07/23/17 10:26 07/23/17 10:26 General: Alert, Oriented x3, Cooperative, No apparent distress HEENT: Atraumatic, Normocephalic Lungs: Normal air movement Cardiovascular: Regular rate Psych/Mental Status: Normal Affect Assessment/Plan The patient appears to be tolerating hyperbaric oxygen therapy well, which will be continued as per the patient's medical plan.
[2017-07-25 12:11] VITALS: BP 149/102; BP 170/101; PULSE 122; PULSE 75; RESP 16; RESP 18; TEMP 36.3; TEMP 36.9
--- NOTE | 2017-07-25 15:37 | PCM.HBO.PN ---
History of Present Illness Date of Service: 07/25/17 Presenting Chief Complaint: Nonhealing ulcer right knee, s/p debridement and skin grafting 05/09/17, with compromise of graft. RYAN SHELTON is a 61 year old currently undergoing hyperbaric oxygen therapy for nonhealing ulcer right knee, s/p debridement and skin grafting 05/09/17, with compromise of graft. Progress: The patient appears to be tolerating hyperbaric oxygen therapy well. Today's session represents the 24th session of hyperbaric oxygen therapy. Tolerance of hyperbaric oxygen therapy: Hyperbaric oxygen therapy was administered as per the facility's protocol. Hyperbaric oxygen therapy was tolerated well, without complaints or complications. Upon emergence from the hyperbaric chamber, the patient's vital signs remained stable. He was discharged in good condition. 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) nonhealing ulcer right knee Allergies/Adverse Reactions: Allergies Sulfa (Sulfonamide Antibiotics) Adverse Reaction (Verified 05/27/17 15:26) Other INFLAMMATION Home Medications: Ambulatory Orders Medication Instructions Recorded Multivit-Min/FA/Lycopene/Lut 1 ea PO DAILY 10/28/14 [Centrum Silver Tablet] Amlodipine Besylate [Norvasc] 5 mg PO DAILY 05/01/17 Oxycodone HCl/Acetaminophen 1 - 2 tab PO 4X/DAY PRN PRN 5 Days 05/10/17 [Percocet 5/325] #40 tab Smoking Status: Current every day smoker Physical Exam Vital Signs Temp Pulse Resp BP 98.4 F 122 H 18 149/102 H 07/25/17 12:11 07/25/17 12:11 07/25/17 12:11 07/25/17 12:11 General: Alert, Oriented x3, Cooperative, No apparent distress, Well developed, Well nourished HEENT: Atraumatic, PERRLA, EOMI, Normocephalic Lungs: Normal air movement Psych/Mental Status: Normal Affect, Appropriate, Alert and oriented to time, place, person, mood and affect Assessment/Plan Patient appears to be tolerating hyperbaric oxygen therapy well, which will be continued as per the patient's medical plan.
[2017-07-28 10:27] VITALS: BP 143/89; BP 147/94; PULSE 71; PULSE 94; RESP 16; TEMP 36.4; TEMP 36.6
--- NOTE | 2017-07-28 23:50 | PN.PCM_ITS ---
Type of Wound Date of Service: 07/28/17 Chief Complaint: Nonhealing ulcer right knee, s/p debridement and skin grafting 05/09/17, with some early graft compromise. History of Wound: Surgery 05/09/17 - Surgical preparation right knee with excisional debridement nonhealing ulcer and foreign body suture granuloma. 2. Reconstruction right knee ulcer with STSG from lower anterior abdominal wall ( 21 cm2) and placement of AWILDA NPWT. Wound care - Collagen Hydrogel. Operative culture - negative. He was placed on Levaquin perioperatively. Prealbumin from 05/10/17 was 19.8. Encourage nutritional supplementation with protein to help the healing process. It was noted at his first postop visit that there was some early compromise to his skin graft mostly at the edges and now is mostly in the central aspect of the graft probably over the tendon. He would benefit from HBO treatments and was started. He initially had some trouble with his right ear and saw ENT and had an ear tube placed. Today he denies any fever. His appetite is good. He has started back to work and is doing ok. Progress of Wound: Improved. - Physical Exam Vital Signs Temp Pulse Resp BP 98 F 94 16 143/89 H 07/28/17 10:27 07/28/17 10:27 07/28/17 10:27 07/28/17 10:27 Wound Measurements and Assessment WC - Nurse 1 - General Ulcer Measurement Start: 07/15/17 10:12 Freq: Status: Active Protocol: Activity Type Activity Date Activity User E-Sign Co-Sign Detail Recorded Client Recorded Date Recorded By Document 07/28/17 12:31 DV [id number] 07/28/17 12:33 DV 07/28/17 12:31 Wound Center Nurse 1 [Ulcer Assessment] #1 Right Knee -Combined with other wound No -Current Size (cm) - Length 1.0 -Current Size (cm) - Width 1.0 -Current Size (cm) - Depth 0.1 -Total Square Cm 1.00 -Photo Taken No -Epithelialization None Present -Tunneling No -Undermining/Tunneling No -Circular Undermining No -Classification - Thickness Full Thickness without Exposed Support Structure -Exudate Amt Small (1-33%) -Exudate Type Serous -Wound Margin Indistinct, Non -Visible -Granulation Amt None Present (0 %) -Slough/Fibrin Yes -Necrosis Amt Small (1-33%) -Necrotic Tissue Type Adherent Slough -Structure Exposed None/Limited to Skin Breakdown -Texture (Loretta-wound Skin Appearance) Assessed Scarring -Moisture (Loretta-wound Skin Appearance Assessed ) Dry/Scaly -Color (Loretta-wound Skin Appearance) No Abnormality Assessed -Temperature (Loretta-wound Skin No Abnormality Appearance) (Pt Warm) -Tenderness on Palpation (Loretta-wound No Skin Appearance) -Ulcer Cleansing Rinsed/ Irrigated with Saline -Foul Odor after Cleansing No -Anesthetic Used 5% Lidocaine Gel - Nurse 2 - General Ulcer CM Notes Start: 07/15/17 10:12 Freq: Status: Active Protocol: Activity Type Activity Date Activity User E-Sign Co-Sign Detail Recorded Client Recorded Date Recorded By Document 07/28/17 12:41 [id number] 07/28/17 12:42 07/28/17 12:41 Wound Center Nurse 2 [Procedure/Treatment] -Time 12:41 -Correct Patient Yes -Correct Side, Site, Position Yes -Correct Procedure Yes -Procedure Performed Yes -Type of Procedure Debridement -Clinical Debridement Selective -Post Debridement Size (cm) - Length 0.3 -Post Debridement Size (cm) - Width 0.3 -Post Debridement Size (cm) - Depth 0.1 -Total Square Cm 0.09 -Wound/Ulcer Outcome Not Healed -Ulcer Cleansing Rinsed/ Irrigated with Saline -Foul Odor after Cleansing No -Bioengineered Tissue No -Bleeding Controlled with Pressure -Treatment Response Procedure Tolerated Well [See Physician Procedure note for Specifics] Pain Scale: 0-10 Numeric [Pain] -Is Patient Pain Free? Yes Debridement Note Post-Debridement Measurements/Treatment - Nurse 2 - General Ulcer CM Notes Start: 07/15/17 10:12 Freq: Status: Active Protocol: Activity Type Activity Date Activity User E-Sign Co-Sign Detail Recorded Client Recorded Date Recorded By Document 07/15/17 14:05 [id number] 07/15/17 14:08 Document 07/21/17 12:37 [id number] 07/21/17 12:37 Document 07/28/17 12:41 [id number] 07/28/17 12:42 07/15/17 07/21/17 07/28/17 14:05 12:37 12:41 Wound Center Nurse 2 #1 Right Knee -Time 14:06 12:37 12:41 -Correct Patient Yes Yes Yes -Correct Side, Site, Position Yes Yes Yes -Correct Procedure Yes Yes Yes -Procedure Performed Yes Yes Yes -Type of Procedure Debridement Debridement Debridement -Clinical Debridement Subcutaneous Subcutaneous Selective -Post Debridement Size (cm) - Length 1.0 0.4 0.3 -Post Debridement Size (cm) - Width 0.5 0.3 0.3 -Post Debridement Size (cm) - Depth 0.1 0.2 0.1 -Total Square Cm 0.50 0.12 0.09 -Wound/Ulcer Outcome Not Healed Not Healed Not Healed -Ulcer Cleansing Rinsed/ Rinsed/ Rinsed/ Irrigated with Irrigated with Irrigated with Saline Saline Saline -Foul Odor after Cleansing No No No -Bioengineered Tissue No No No -Bleeding Controlled with Pressure Pressure Pressure -Treatment Response Procedure Procedure Procedure Tolerated Well Tolerated Well Tolerated Well Pain Scale: 0-10 Numeric Is Patient Pain Free? Yes Yes Yes Wound debrided: #1 Right knee with skin graft compromise. Laterality: Right Wound Grade/Stage: 3. Type of Debridement: Selective debridement Anesthesia Used: 4% Lidocaine Solution Depth: - - some superficial scabbing debrided. Percentage of wound debrided: 100 Instrument Used: 3mm curette Tissue Removed: some superficial scabbing. Severity: Limited To Skin Breakdown - some superficial scabbing removed. Amount of bleeding with debridement: Mild Bleeding Controlled with: Pressure Patient tolerated procedure well Assessment/Plan Assessment: 1. Nonhealing ulcer right knee, with recent skin grafting. 2. Early compromise skin graft right knee. 3. s/p right patellar tendon rupture repair in May 2016. 4. s/p excision sinus tract and debridement right knee wound in August 2016. 5. s/p surgical preparation right knee with incision and drainage and excision nonhealing infected ulcer and foreign body granuloma tract with 9 cm complex secondary wound closure in January 2017. 6. s/p surgical preparation right knee with excisional debridement nonhealing ulcer and foreign body suture granuloma and reconstruction right knee ulcer with STSG from lower anterior abdominal wall (21 cm2) and placement of AWILDA NPWT. 7. Smoker. Plan: Continue Collagen Hydrogel to be placed on the area of skin graft compromise. It is almost healed. The rest of the skin graft shows good adherence and good vascular ingrowth at the edges. The early compromise to the graft is mostly in the central aspect, about 15%. Continue the GRANT wrap for compression. He is done with his Levaquin as the operative culture was negative. Prealbumin from 05/10/17 was 19.8. Encourage nutritional supplementation with protein to help the healing process. He is getting HBO treatments because for the early compromise to his recently placed skin graft and improvements are seen in order to help salvage the graft. The HBO treatments were started and he had some trouble with his right ear. He saw ENT and an ear tube was placed. He will keep his right leg elevated when sitting. Encouraged the patient to stop smoking as it may have deleterious effects on wound healing. He has returned to work on 07/16/17 and is doing ok. Followup 2 weeks.
--- NOTE | 2017-07-28 23:54 | PCM.HBO.PN ---
History of Present Illness Date of Service: 07/28/17 Presenting Chief Complaint: Nonhealing ulcer right knee, s/p debridement and skin grafting 05/09/17, with compromise of graft. RYAN SHELTON is a 61 year old currently undergoing hyperbaric oxygen therapy for compromised skin graft right knee after debridement and skin grafting 05/09/17. Progress: This session represents the 25th session of hyperbaric oxygen therapy treatments. Tolerance of hyperbaric oxygen therapy: Hyperbaric oxygen therapy was administered as per the facility's protocol. The patient tolerated hyperbaric oxygen therapy well, without complaints or complications. Upon emergence from the hyperbaric chamber, patient's vital signs remained stable. The patient was discharged in good condition. Right ear tube has been placed and he is having no more ear issues at this time. 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) nonhealing ulcer right knee Allergies/Adverse Reactions: Allergies Sulfa (Sulfonamide Antibiotics) Adverse Reaction (Verified 05/27/17 15:26) Other INFLAMMATION Home Medications: Ambulatory Orders Medication Instructions Recorded Multivit-Min/FA/Lycopene/Lut 1 ea PO DAILY 10/28/14 [Centrum Silver Tablet] Amlodipine Besylate [Norvasc] 5 mg PO DAILY 05/01/17 Oxycodone HCl/Acetaminophen 1 - 2 tab PO 4X/DAY PRN PRN 5 Days 05/10/17 [Percocet 5/325] #40 tab Smoking Status: Current every day smoker Physical Exam Vital Signs Temp Pulse Resp BP 98 F 94 16 143/89 H 07/28/17 10:27 07/28/17 10:27 07/28/17 10:27 07/28/17 10:27
[2017-07-30 11:25] VITALS: BP 145/87; BP 148/82; PULSE 106; PULSE 76; RESP 16; TEMP 36.4; TEMP 37.1
--- NOTE | 2017-07-30 12:37 | PCM.HBO.PN ---
History of Present Illness Date of Service: 07/30/17 Presenting Chief Complaint: Nonhealing ulcer right knee, s/p debridement and skin grafting 05/09/17, with compromise of graft. RYAN SHELTON is a 61 year old currently undergoing hyperbaric oxygen therapy for nonhealing ulcer right knee, s/p debridement and skin grafting 05/09/17, with compromise of graft. Progress: The patient appears to be tolerating hyperbaric oxygen therapy well. Tolerance of hyperbaric oxygen therapy: Hyperbaric oxygen therapy was administered as per the facility's protocol. Hyperbaric oxygen therapy was tolerated well, without complaints or complications. Upon emergence from the hyperbaric chamber, the patient's vital signs remained stable. He was discharged in good condition. 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) nonhealing ulcer right knee Allergies/Adverse Reactions: Allergies Sulfa (Sulfonamide Antibiotics) Adverse Reaction (Verified 05/27/17 15:26) Other INFLAMMATION Home Medications: Ambulatory Orders Medication Instructions Recorded Multivit-Min/FA/Lycopene/Lut 1 ea PO DAILY 10/28/14 [Centrum Silver Tablet] Amlodipine Besylate [Norvasc] 5 mg PO DAILY 05/01/17 Oxycodone HCl/Acetaminophen 1 - 2 tab PO 4X/DAY PRN PRN 5 Days 05/10/17 [Percocet 5/325] #40 tab Smoking Status: Current every day smoker Physical Exam Vital Signs Temp Pulse Resp BP 98.7 F 106 H 16 145/87 H 07/30/17 11:25 07/30/17 11:25 07/30/17 11:25 07/30/17 11:25 General: Alert, Oriented x3, Cooperative, No apparent distress HEENT: Atraumatic, Normocephalic Lungs: Normal air movement Cardiovascular: Tachycardic Psych/Mental Status: Normal Affect Assessment/Plan Patient appears to be tolerating hyperbaric oxygen therapy well, which will be continued as per the patient's medical plan.
[2017-07-31 11:15] VITALS: BP 140/86; PULSE 123; RESP 16; TEMP 36.6; TEMP 37.1
--- NOTE | 2017-07-31 11:57 | PCM.HBO.PN ---
History of Present Illness Date of Service: 07/31/17 Presenting Chief Complaint: Nonhealing ulcer right knee, s/p debridement and skin grafting 05/09/17, with compromise of graft. RYAN SHELTON is a 61 year old currently undergoing hyperbaric oxygen therapy for nonhealing ulcer right knee, s/p debridement and skin grafting 05/09/17, with compromise of graft. Progress: The patient appears to be tolerating hyperbaric oxygen therapy well. Tolerance of hyperbaric oxygen therapy: Hyperbaric oxygen therapy was administered as per the facility's protocol. Hyperbaric oxygen therapy was tolerated well, without complaints or complications. Upon emergence from the hyperbaric chamber, the patient's vital signs remained stable. He was discharged in good condition. 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) nonhealing ulcer right knee Allergies/Adverse Reactions: Allergies Sulfa (Sulfonamide Antibiotics) Adverse Reaction (Verified 05/27/17 15:26) Other INFLAMMATION Home Medications: Ambulatory Orders Medication Instructions Recorded Multivit-Min/FA/Lycopene/Lut 1 ea PO DAILY 10/28/14 [Centrum Silver Tablet] Amlodipine Besylate [Norvasc] 5 mg PO DAILY 05/01/17 Oxycodone HCl/Acetaminophen 1 - 2 tab PO 4X/DAY PRN PRN 5 Days 05/10/17 [Percocet 5/325] #40 tab Smoking Status: Current every day smoker Physical Exam Vital Signs Temp Pulse Resp BP 98.7 F 123 H 16 140/86 H 07/31/17 11:15 07/31/17 11:15 07/31/17 11:15 07/31/17 11:15 General: Alert, Oriented x3, Cooperative, No apparent distress HEENT: Atraumatic, Normocephalic Lungs: Normal air movement Cardiovascular: Tachycardic Psych/Mental Status: Normal Affect Assessment/Plan Patient appears to be tolerating hyperbaric oxygen therapy well, which will be continued as per the patient's medical plan.
[2017-08-01 10:15] VITALS: BP 140/81; PULSE 115; RESP 18; TEMP 36.8
--- NOTE | 2017-08-01 13:05 | PCM.HBO.PN ---
History of Present Illness Date of Service: 08/01/17 Presenting Chief Complaint: Nonhealing ulcer right knee, s/p debridement and skin grafting 05/09/17, with compromise of graft. RYAN SHELTON is a 61 year old currently undergoing hyperbaric oxygen therapy for nonhealing ulcer right knee, s/p debridement and skin grafting 05/09/17, with compromise of graft. Progress: The patient appears to be tolerating hyperbaric oxygen therapy well. Tolerance of hyperbaric oxygen therapy: Hyperbaric oxygen therapy was administered as per the facility's protocol. Hyperbaric oxygen therapy was tolerated well, without complaints or complications. Upon emergence from the hyperbaric chamber, the patient's vital signs remained stable. He was discharged in good condition. 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) nonhealing ulcer right knee Allergies/Adverse Reactions: Allergies Sulfa (Sulfonamide Antibiotics) Adverse Reaction (Verified 05/27/17 15:26) Other INFLAMMATION Home Medications: Ambulatory Orders Medication Instructions Recorded Multivit-Min/FA/Lycopene/Lut 1 ea PO DAILY 10/28/14 [Centrum Silver Tablet] Amlodipine Besylate [Norvasc] 5 mg PO DAILY 05/01/17 Oxycodone HCl/Acetaminophen 1 - 2 tab PO 4X/DAY PRN PRN 5 Days 05/10/17 [Percocet 5/325] #40 tab Smoking Status: Current every day smoker Physical Exam Vital Signs Temp Pulse Resp BP 98.3 F 115 H 18 140/81 H 08/01/17 10:15 08/01/17 10:15 08/01/17 10:15 08/01/17 10:15 Assessment/Plan Patient appears to be tolerating hyperbaric oxygen therapy well, which will be continued as per the patient's medical plan.
[2017-08-05 10:15] VITALS: BP 147/92; BP 150/92; PULSE 81; PULSE 99; RESP 16; RESP 18; TEMP 36.5; TEMP 36.6
--- NOTE | 2017-08-05 14:30 | PCM.HBO.PN ---
History of Present Illness Date of Service: 08/05/17 Presenting Chief Complaint: Nonhealing ulcer right knee, s/p debridement and skin grafting 05/09/17, with compromise of graft. RYAN SHELTON is a 61 year old currently undergoing hyperbaric oxygen therapy for nonhealing ulcer right knee, s/p debridement and skin grafting 05/09/17, with compromise of graft. Progress: The patient appears to be tolerating hyperbaric oxygen therapy well. Today's session represents the 29th such session of hyperbaric oxygen therapy. Tolerance of hyperbaric oxygen therapy: Hyperbaric oxygen therapy was administered as per the facility's protocol. Hyperbaric oxygen therapy was tolerated well, without complaints or complications. Upon emergence from the hyperbaric chamber, the patient's vital signs remained stable. He was discharged in good condition. 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) nonhealing ulcer right knee Allergies/Adverse Reactions: Allergies Sulfa (Sulfonamide Antibiotics) Adverse Reaction (Verified 05/27/17 15:26) Other INFLAMMATION Home Medications: Ambulatory Orders Medication Instructions Recorded Multivit-Min/FA/Lycopene/Lut 1 ea PO DAILY 10/28/14 [Centrum Silver Tablet] Amlodipine Besylate [Norvasc] 5 mg PO DAILY 05/01/17 Oxycodone HCl/Acetaminophen 1 - 2 tab PO 4X/DAY PRN PRN 5 Days 05/10/17 [Percocet 5/325] #40 tab Smoking Status: Current every day smoker Physical Exam Vital Signs Temp Pulse Resp BP 98 F 99 18 150/92 H 08/05/17 10:15 08/05/17 10:15 08/05/17 10:15 08/05/17 10:15 General: Alert, Oriented x3, Cooperative, No apparent distress, Well developed, Well nourished HEENT: Atraumatic, PERRLA, EOMI, Normocephalic Lungs: Normal air movement Psych/Mental Status: Normal Affect, Appropriate, Alert and oriented to time, place, person, mood and affect Assessment/Plan The patient appears to be tolerating hyperbaric oxygen therapy well, which will be continued as per the patient's medical plan.
[2017-08-06 10:21] VITALS: BP 115/90; BP 139/86; PULSE 105; PULSE 75; RESP 16; TEMP 36.6; TEMP 36.9
--- NOTE | 2017-08-06 16:59 | PCM.HBO.PN ---
History of Present Illness Date of Service: 08/06/17 Presenting Chief Complaint: Nonhealing ulcer right knee, s/p debridement and skin grafting 05/09/17, with compromise of graft. RYAN SHELTON is a 61 year old currently undergoing hyperbaric oxygen therapy for nonhealing ulcer right knee, s/p debridement and skin grafting 05/09/17, with compromise of graft. Progress: The patient appears to be tolerating hyperbaric oxygen therapy well. Today's session represents the 30th such session of hyperbaric oxygen therapy. Tolerance of hyperbaric oxygen therapy: Hyperbaric oxygen therapy was administered as per the facility's protocol. Hyperbaric oxygen therapy was tolerated well, without complaints or complications. Upon emergence from the hyperbaric chamber, the patient's vital signs remained stable. He was discharged in good condition. 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) nonhealing ulcer right knee Allergies/Adverse Reactions: Allergies Sulfa (Sulfonamide Antibiotics) Adverse Reaction (Verified 05/27/17 15:26) Other INFLAMMATION Home Medications: Ambulatory Orders Medication Instructions Recorded Multivit-Min/FA/Lycopene/Lut 1 ea PO DAILY 10/28/14 [Centrum Silver Tablet] Amlodipine Besylate [Norvasc] 5 mg PO DAILY 05/01/17 Oxycodone HCl/Acetaminophen 1 - 2 tab PO 4X/DAY PRN PRN 5 Days 05/10/17 [Percocet 5/325] #40 tab Smoking Status: Current every day smoker Physical Exam Vital Signs Temp Pulse Resp BP 98.4 F 105 H 16 115/90 H 08/06/17 10:21 08/06/17 10:21 08/06/17 10:21 08/06/17 10:21 General: Alert, Oriented x3, Cooperative, No apparent distress HEENT: Atraumatic, Normocephalic Lungs: Normal air movement Psych/Mental Status: Normal Affect Assessment/Plan The patient appears to have tolerated hyperbaric oxygen therapy well. Continue follow up up with Dr. Aparicio for plan of care.
[2017-08-12 12:32] VITALS: BP 141/91; PULSE 100; RESP 16; TEMP 36.6
--- NOTE | 2017-08-12 20:31 | PN.PCM_ITS ---
Type of Wound Date of Service: 08/12/17 Chief Complaint: Nonhealing ulcer right knee, s/p debridement and skin grafting 05/09/17, with some early graft compromise. History of Wound: Surgery 05/09/17 - Surgical preparation right knee with excisional debridement nonhealing ulcer and foreign body suture granuloma. 2. Reconstruction right knee ulcer with STSG from lower anterior abdominal wall ( 21 cm2) and placement of AWILDA NPWT. Wound care - Collagen Hydrogel. Operative culture - negative. He was placed on Levaquin perioperatively. Prealbumin from 05/10/17 was 19.8. Encourage nutritional supplementation with protein to help the healing process. It was noted at his first postop visit that there was some early compromise to his skin graft mostly at the edges and now is mostly in the central aspect of the graft probably over the tendon. He finished his HBO treatments and no further problems with his right ear. He initially had some trouble with his right ear and saw ENT and had an ear tube placed. Today he denies any fever. His appetite is good. He has started back to work and is doing ok. Progress of Wound: Healed. - Physical Exam Vital Signs Temp Pulse Resp BP 98 F 100 16 141/91 H 08/12/17 12:32 08/12/17 12:32 08/12/17 12:32 08/12/17 12:32 General: Alert, Oriented x3 HEENT: PERRLA, EOMI Oral: Moist Mucosa Neck: Supple Lungs: Clear to auscultation Cardiovascular: Regular rate, Regular Rhythm Abdomen: Soft, Non-Distended Skin: Ulcer/ Wound - right knee compromised graft ulcer has healed. Wound Measurements and Assessment WC - Nurse 1 - General Ulcer Measurement Start: 07/15/17 10:12 Freq: Status: Active Protocol: Activity Type Activity Date Activity User E-Sign Co-Sign Detail Recorded Client Recorded Date Recorded By Document 08/12/17 12:32 [facility] [id number] 08/12/17 12:36 [facility] 08/12/17 12:32 Wound Center Nurse 1 [Ulcer Assessment] #1 Right Knee -Combined with other wound No -Current Size (cm) - Length 0.1 -Current Size (cm) - Width 0.1 -Current Size (cm) - Depth 0.1 -Total Square Cm 0.01 -Date of Last Picture (Recall this 08/12/17 field) -Photo Taken Yes -Epithelialization Large 67-100% -Tunneling No -Undermining/Tunneling No -Circular Undermining No -Exudate Amt None Present (0 %) -Wound Margin Distinct, Outline Attached -Granulation Amt None Present (0 %) -Slough/Fibrin Yes -Necrosis Amt Small (1-33%) -Necrotic Tissue Type Adherent Slough -Structure Exposed N/A -Texture (Loretta-wound Skin Appearance) Scarring -Moisture (Loretta-wound Skin Appearance Assessed ) Dry/Scaly -Color (Loretta-wound Skin Appearance) Assessed -Temperature (Loretta-wound Skin No Abnormality Appearance) (Pt Warm) -Tenderness on Palpation (Loretta-wound No Skin Appearance) -Ulcer Cleansing Rinsed/ Irrigated with Saline -Foul Odor after Cleansing No -Anesthetic Used 5% Lidocaine Gel WC - Nurse 2 - General Ulcer CM Notes Start: 07/15/17 10:12 Freq: Status: Active Protocol: Activity Type Activity Date Activity User E-Sign Co-Sign Detail Recorded Client Recorded Date Recorded By Document 08/12/17 13:15 [id number] 08/12/17 13:18 08/12/17 13:15 Wound Center Nurse 2 [Procedure/Treatment] -Correct Patient No -Correct Side, Site, Position No -Correct Procedure No -Procedure Performed No -Post Debridement Size (cm) - Length 0 -Post Debridement Size (cm) - Width 0 -Post Debridement Size (cm) - Depth 0 -Total Square Cm 0 -Wound/Ulcer Outcome Healed- Epithelialized [See Physician Procedure note for Specifics] Pain Scale: 0-10 Numeric [Pain] -Is Patient Pain Free? Yes Neurological: Cranial nerves II-XII grossly intact Psych/Mental Status: Normal Affect, Appropriate Debridement Note Post-Debridement Measurements/Treatment WC - Nurse 2 - General Ulcer CM Notes Start: 07/15/17 10:12 Freq: Status: Active Protocol: Activity Type Activity Date Activity User E-Sign Co-Sign Detail Recorded Client Recorded Date Recorded By Document 07/15/17 14:05 [id number] 07/15/17 14:08 Document 07/21/17 12:37 [id number] 07/21/17 12:37 Document 07/28/17 12:41 [id number] 07/28/17 12:42 Document 08/12/17 13:15 [id number] 08/12/17 13:18 07/15/17 07/21/17 07/28/17 14:05 12:37 12:41 Wound Center Nurse 2 #1 Right Knee -Time 14:06 12:37 12:41 -Correct Patient Yes Yes Yes -Correct Side, Site, Position Yes Yes Yes -Correct Procedure Yes Yes Yes -Procedure Performed Yes Yes Yes -Type of Procedure Debridement Debridement Debridement -Clinical Debridement Subcutaneous Subcutaneous Selective -Post Debridement Size (cm) - Length 1.0 0.4 0.3 -Post Debridement Size (cm) - Width 0.5 0.3 0.3 -Post Debridement Size (cm) - Depth 0.1 0.2 0.1 -Total Square Cm 0.50 0.12 0.09 -Wound/Ulcer Outcome Not Healed Not Healed Not Healed -Ulcer Cleansing Rinsed/ Rinsed/ Rinsed/ Irrigated with Irrigated with Irrigated with Saline Saline Saline -Foul Odor after Cleansing No No No -Bioengineered Tissue No No No -Bleeding Controlled with Pressure Pressure Pressure -Treatment Response Procedure Procedure Procedure Tolerated Well Tolerated Well Tolerated Well Pain Scale: 0-10 Numeric Is Patient Pain Free? Yes Yes Yes 08/12/17 13:15 Wound Center Nurse 2 #1 Right Knee -Time -Correct Patient No -Correct Side, Site, Position No -Correct Procedure No -Procedure Performed No -Type of Procedure -Clinical Debridement -Post Debridement Size (cm) - Length 0 -Post Debridement Size (cm) - Width 0 -Post Debridement Size (cm) - Depth 0 -Total Square Cm 0 -Wound/Ulcer Outcome Healed- Epithelialized -Ulcer Cleansing -Foul Odor after Cleansing -Bioengineered Tissue -Bleeding Controlled with -Treatment Response Pain Scale: 0-10 Numeric Is Patient Pain Free? Yes Wound debrided: #1 Right knee with skin graft compromise. Laterality: Right Wound Grade/Stage: 3. No debridement was completed today - The ulcer has healed. Assessment/Plan Assessment: 1. Ulcer right knee, with recent skin grafting, healed. 2. Early compromise skin graft right knee, healed. 3. s/p right patellar tendon rupture repair in May 2016. 4. s/p excision sinus tract and debridement right knee wound in August 2016. 5. s/p surgical preparation right knee with incision and drainage and excision nonhealing infected ulcer and foreign body granuloma tract with 9 cm complex secondary wound closure in January 2017. 6. s/p surgical preparation right knee with excisional debridement nonhealing ulcer and foreign body suture granuloma and reconstruction right knee ulcer with STSG from lower anterior abdominal wall (21 cm2) and placement of AWILDA NPWT. 7. Smoker. Plan: The skin graft ulcer has healed. Massage with skin lotion on a daily basis to help soften up the scar. Continue GRANT wrap for compression at work for 6 months. The HBO has been completed. He is getting eye surgery in the near future. Followup on an as needed basis. Encouraged the patient to stop smoking as it may have deleterious effects on wound healing.
== END 2017-08-14 23:59 ==
LOC: WC 12:30
PROVIDERS: Family Provider Family Medicine; PCP Family Medicine; Visit Provider Surgery
DX: L97.819 Non-pressure chronic ulcer of other part of right lower leg with unspecified severity (principal); F17.200 Nicotine dependence, unspecified, uncomplicated; Z98.890 Other specified postprocedural states
CPT/HCPCS: 11042; 97597; 97598; 99183; 99213; G0277; G0463

== ENCOUNTER → 2018-10-05 | Outpatient (CLI) | payer BC, SELFPAY ==
[2018-10-05 10:36] VITALS: BMI 25.2
[2018-10-05 12:23] LABS: Absolute Lymphocyte Count 1.84 X10^3/uL (0.83-4.51); Absolute Neutrophil Count 6.5 X10^3/uL (2.0-7.7); Basophil# 0.05 X10^3/uL; Basophil% 0.5 % (0-1); Eosinophil# 0.11 X10^3/uL; Eosinophils% 1.2 % (0-5); Hemoglobin 15.4 g/dL (13.0-16.5); Lymphocyte # 1.84 X10^3/ul (4.0); Lymphocyte % 19.6 % (19-41); Mean Corp Hgb Conc 34.2 g/dL (32-36); Mean Corpuscular Hgb 34.6 pg (27.0-32.0); Mean Corpuscular Volume 101.1 fL (80-94); Mean Platelet Vol. 9.7 fl (6.2-12.0); Monocyte# 0.85 X10^3/uL; NRBC Flagged by Analyzer 0 % (0-5); Neutrophil # 6.51 X10^3/uL (2.7-7.7); Neutrophil % 69.2 % (47-70); Platelet Count 270 K/mm3 (150-450); RBC Distribution Width CV 11.9 % (11.6-14.6); RBC Distribution Width SD 44.6 fl (35.1-43.9); Red Blood Count 4.45 M/mm3 (4.6-6.2); White Blood Count 9.4 K/mm3 (4.4-11.0)
[2018-10-05 13:18] LABS: AST(SGOT) 25 U/L (15-37); Alanine Aminotransfer ALT/SGPT 34 U/L (16-61); Albumin, Serum 3.8 g/dL (3.2-5.0); Alkaline Phosphatase 69 U/L (45-117); Anion Gap 8 (5-15); BUN 13 mg/dL (7-18); BUN/Creat Ratio 15.8 RATIO (10-20); Calcium,Total 8.9 mg/dL (8.5-10.1); Chloride 106 mmol/L (98-107); Creatinine, Serum 0.82 mg/dL (0.70-1.30); EST Glomerular Filtration Rate 101 mL/min (>60); Est Glom Filt Rate - Afr Amer 122 mL/min (>60); Globulin 3.7 g/dL (2.2-4.2); Glucose 110 mg/dL (74-106); Potassium 4.2 mmol/L (3.5-5.1); Protein, Total 7.5 g/dL (6.4-8.2); Sodium Level 140 mmol/L (136-145); Thyroid Stim Hormone (TSH) 1.66 uIU/mL (0.358-3.74)
== END | disposition home or self-care (01) ==
LOC: BFHLAB 10:39
PROVIDERS: Family Provider Family Medicine; PCP Family Medicine; Visit Provider Family Medicine
DX: I10 Essential (primary) hypertension (principal); R73.01 Impaired fasting glucose
CPT/HCPCS: 36415; 80053; 83036; 84443; 85025

== ENCOUNTER 2020-06-02 15:26 | Outpatient (RCR) | payer OTHER, SELFPAY ==
[2018-10-05 10:36] VITALS: BMI 25.2
[2020-06-02] MEDS: COVID-19 VACC, MRNA(PFIZER)/PF 30 MCG/0.3 ML SYRINGE IM (14:26)
[2020-06-23] MEDS: COVID-19 VACC, MRNA(PFIZER)/PF 30 MCG/0.3 ML SYRINGE IM (14:07)
== END 2020-06-02 23:59 ==
LOC: IMMUN 15:26
PROVIDERS: PCP Family Medicine; Referring Provider Family Medicine; Visit Provider Family Medicine
DX: Z23 Encounter for immunization (principal)
CPT/HCPCS: 0001A; 0002A; 91300

== ENCOUNTER 2021-05-25 07:51 | Day surgery (SDC) | payer OTHER, SELFPAY ==
[2021-05-25 08:04] VITALS: BP 160/57; PULSE 102; RESP 16; TEMP 36.7; O2SAT 95; BMI 25.1
[2021-05-25] MEDS: Lactated Ringers 1,000 ML 15 ML IV (08:09)
--- NOTE | 2021-05-25 08:30 | HP.PCM_ITS ---
History and Physical Date of Admission: 05/25/21 Intake Vital Signs 05/08/21 13:25 Height 5 ft 7 in Weight: 166 lb BMI 25.9 BP 173/97 H Blood Pressure Location Rt brachial Position Sitting Respiration 18 Intake Visit Reasons: COLONOSCOPY Chief Complaint: c-scope Window Installer Required: No Is patient in pain?: No Allergies Sulfa (Sulfonamide Antibiotics) Adverse Reaction (Verified 05/08/21 13:17) Other Medications [id number] 1 ea PO DAILY 10/28/14 [History Confirmed 05/08/21] amlodipine 5 mg PO DAILY 05/01/17 [History Confirmed 05/08/21] PFSH Medical History COPD (chronic obstructive pulmonary disease) Hernia, inguinal, bilateral Hypertension NONHEALING SURGICAL WOUND RIGHT KNEE NONHEALING ULCER RIGHT KNEE Rupture of right patellar tendon SCROTAL HYDROCELES Wound, surgical, nonhealing Surgical History DISLOCATOR RIGHT HIP DOUBLE HERNIA REPAIR EXCISIONSINUS TRACT AND DEBRIDEMENT RIGHT KNEE WOUND History of right hip replacement LAPAROSCOPIC BILATERAL INGUINAL HERNIA REPAIR RIGHT PATELLA TENDON RUPTURE REPAIR SURGICAL PREPARATION RIGHT KNEE WITH INCISION AND DRAINAGE Family History Father , AGE 75 Myocardial infarction Brother Kidney malignancy Social History Smoking Status: Current every day smoker Tobacco: How many years used: 44 second hand exposure: Yes quit status: not considering quitting alcohol intake: current alcohol intake frequency: 0-2 drinks per day Alcohol type: beer substance use type: does not use do you feel safe at home: Yes HPI HPI HPI: RYAN SHELTON, is a 65 M who presents to the office today for colonoscopy. Patient had a colonoscopy in 2015 and did have tubular adenoma at that time. He denies any abdominal pain or blood in his stool. He was recommended to have 5- year follow-up. ROS General General: No weight change, appetite, fatigue, colon cancer, breast cancer or weakness HEENT HEENT: No difficulty swallowing, eye injury, eye surgery, swollen glands or hoarseness Endo Endocrine: No thyroid disease, diabetes mellitus, thyroid cancer, Hair loss, heat intolerance or cold intolerance Skin Skin: No rash or changing moles Breast Breast: No left breast lump, right breast lump, nipple discharge, breast pain, abnormal mammogram, abnormal US or breast enlargement Musc Musculoskeletal: No back problems, arthritis, rheumatoid arthritis, gout or joint pain Cardio Cardiovascular: Yes high blood pressure; No murmur, pacemaker, heart disease, atrial fibrillation, heart attack, heart stent, palpitations, shortness of breat with exertion or chest pain Psych Psychiatric: No depression, anxiety or hearing voices Resp Respiratory: No shortness of breath, No sleep apnea, No cough, Yes COPD, No asthma, No emphysema and No wheezing Gastro Gastrointestinal: No abdominal pain, No nausea or vomiting, No diarrhea, No constipation, No blood in stool, No acid reflux, No hemorrhoids, No ulcers, No gallbladder problem and No black,tarry stools Prem Hematologic: No blood thinners, No blood disorders, No bleeding, No anemia and No blood clots Neuro Neurologic: No system reviewed and no additional complaints, except as documented, No as per HPI, No abnormal gait, No abnormal hearing, No abnormal movements, No abnormal speech, No behavioral changes, No burning sensations, No confusion, No convulsions, No disequilibrium, No dizziness, No localized weakness, No frequent falls, No headache(s), No lack of coordination, No loss of vision, No memory loss, No numbness, No other visual disturbances, No radicular pain, No restless legs, No sensory deficit, No syncope, No tingling, No tremor(s), No weakness and No other Exam Const General: cooperative Orientation: alert and oriented x3 HENPA Head: normal to inspection Neck Neck: normal visual inspection and full ROM Chest Chest palpation & inspection: normal inspection of the chest Resp Effort & Inspection: normal respiratory effort Auscultation: clear to auscultation bilaterally Cardio Rate: regular rate Rhythm: regular rhythm GI Inspection: non-distended Palpation: soft and nontender Skin General: no rashes or lesions noted Neuro General: patient alert and patient oriented x3 Extrem General: full ROM Psych Appearance: grossly normal Mental Status: mental status grossly normal Assessment and Plan Assessment and Plan (1) History of colon polyps: Status: Acute Orders: Orders: Colonoscopy Today Plan - Dr. Jefry Quijano MD: I explained endoscopy in detail to the patient. I explained the risks including but not limited to stroke or heart attack with anesthesia, perforation of the GI tract, bleeding, infection. I explained that any of these could necessitate further emergency surgery. The patient understands and all questions were answered sufficiently. The patient wishes to proceed with procedure. Jefry Quijano MD Pager: [facility] [address] [place] [address], [address] [place] [phone] Office: I have re-examined the patient. There are no clinical changes since date of exam.
--- NOTE | 2021-05-25 09:00 | COLBX_PTH ---
PATIENT: RYAN SHELTON LOC: EN U#:[id number] AGE/SX: 65/M ROOM: RE05/25/[address]: Dr. Jefry Quijano MD : 1955 BED: DIS: 05/25/2021 SPEC #: [id number] RECD: 05/25/21 12:28 STATUS: RODRI SYLVIA #: [id number] NORM: 05/25/21 09:[address]: Jefry Quijano DEPT: SURGICAL PATHOLOGY RECD BY: Donaldo James ENTERED: 05/25/21 13:43 SP TYPE: COLON BX OTHR DR: Dr. Juve Agudelo MD Tissues: A - COLON BIOPSY B - Cecum, NOS C - Descending colon D - Sigmoid colon biopsy E - Sigmoid colon biopsy Procedures: Surgery Specimen Level IV HEADER OPERATION: Colonoscopy (MAC) PRE-OP DIAGNOSIS: History of colon polyps TISSUE SUBMITTED: A ? Hepatic flexure polyp, B ? Cecum polyp, C ? Descending polyp, D ? Sigmoid polyp, E ? Distal sigmoid polyp MICROSCOPIC DIAGNOSIS A. Hepatic flexure polyp, biopsy: Tubular adenoma. B. Cecum polyp, biopsy: Tubular adenoma. C. Descending colon polyp, biopsy: Tubular adenoma. D. Sigmoid polyp, biopsy: Tubular adenoma. E. Distal sigmoid polyp, biopsy: Tubular adenoma. SJ:dannie 05/28/2021 MICROSCOPIC DESCRIPTION Slides are reviewed. GROSS DESCRIPTION A - Received in fixative is one container labeled with the patient's name and designated hepatic flexure polyp. The specimen consists of a raymond-pink polyp measuring 0.7 x 0.5 x 0.3 cm. The polyp is bisected. Also present in the container is one fragment of raymond soft tissue measuring 0.2 cm in greatest dimension. The entire specimen is submitted in one cassette. B - Received in fixative is one container labeled with the patient's name and designated cecum polyp. The specimen consists of a raymond-pink polyp measuring 0.9 x 0.7 x 0.5 cm. The polyp is bisected and submitted entirely in one cassette. C - Received in fixative is one container labeled with the patient's name and designated descending polyp. The specimen consists of a raymond-pink polyp measuring 0.3 x 0.3 x 0.2 cm. The specimen is totally submitted in one cassette. D - Received in fixative is one container labeled with the patient's name and designated sigmoid polyp. The specimen consists of one irregular fragment of light raymond soft tissue that measures 0.3 x 0.3 x 0.1 cm. The specimen is totally submitted in one cassette. E - Received in fixative is one container labeled with the patient's name and designated distal sigmoid polyp. The specimen consists of one irregular fragment of light raymond soft tissue that measures 0.3 x 0.3 x 0.1 cm. The specimen is totally submitted in one cassette. / SJ:dannie 05/25/2021 TC:1 CPT: 07573 x5
[2021-05-25 09:15] VITALS: BP 102/66; BP 160/57; PULSE 69; RESP 16; TEMP 36.2; O2SAT 91
--- NOTE | 2021-05-25 09:17 | OP.COLON_ITS ---
Patient Name: Luis Hairston Procedure Date: 05/25/2021 8:40 AM Date of : 1955 Age: 65 Procedure: Colonoscopy Indications: High risk colon cancer surveillance: Personal history of colonic polyps Providers: Jefry Quijano MD Medicines: Monitored Anesthesia Care Patient Profile: This is a 65 year old male. Refer to note in patient chart for documentation of history and physical. Last Colonoscopy: 5 years ago. Complications: No immediate complications. Procedure: Pre-Anesthesia Assessment: - Prior to the procedure, a History and Physical was performed, and patient medications and allergies were reviewed. The patient's tolerance of previous anesthesia was also reviewed. The risks and benefits of the procedure and the sedation options and risks were discussed with the patient. All questions were answered, and informed consent was obtained. Prior Anticoagulants: The patient has taken no previous anticoagulant or antiplatelet agents. After reviewing the risks and benefits, the patient was deemed in satisfactory condition to undergo the procedure. After I obtained informed consent, the scope was passed under direct vision. Throughout the procedure, the patient's blood pressure, pulse, and oxygen saturations were monitored continuously. The colonoscope was introduced through the anus and advanced to the cecum, identified by appendiceal orifice and ileocecal valve. The colonoscopy was performed without difficulty. The patient tolerated the procedure well. The quality of the bowel preparation was good. Scope In: 8:45:28 AM Scope Withdrawal Time 0 hours 19 minutes 2 seconds Scope Out: 9:10:51 AM Total Procedure Duration Time 0 hours 25 minutes 23 seconds Findings: Five polyps were found in the proximal sigmoid colon, distal sigmoid colon, descending colon, hepatic flexure and cecum. These polyps were removed with a hot snare. Resection and retrieval were complete. The exam was otherwise without abnormality on direct and retroflexion views. Impression: - Five polyps in the proximal sigmoid colon, in the distal sigmoid colon, in the descending colon, at the hepatic flexure and in the cecum, removed with a hot snare. Resected and retrieved. - The examination was otherwise normal on direct and retroflexion views. Recommendation: - Discharge patient to home. - Resume previous diet. - Continue present medications. - Await pathology results. - Repeat colonoscopy in 3 years for surveillance of multiple polyps. Procedure Code(s): --- Professional --- 73204, Colonoscopy, flexible; with removal of tumor(s), polyp(s), or other lesion(s) by snare technique Diagnosis Code(s): --- Professional --- Z86.010, Personal history of colonic polyps D12.5, Benign neoplasm of sigmoid colon D12.4, Benign neoplasm of descending colon D12.3, Benign neoplasm of transverse colon (hepatic flexure or splenic flexure) D12.0, Benign neoplasm of cecum CPT copyright 2017 [employer]. All rights reserved. The codes documented in this report are preliminary and upon sailing instructor review may be revised to meet current compliance requirements. Jefry Quijano MD 05/25/2021 9:16:42 AM This report has been signed electronically. Number of Addenda: 0 Note Initiated On: 05/25/2021 8:40 AM
--- NOTE | 2021-05-25 09:17 | OP.CCLET_ITS ---
05/25/2021 Juve Agudelo Re : Colonoscopy procedure for Luis Ba Magnus This procedure was performed on Tuesday, May 25, 2021. My impressions and recommendations are as follows: Impressions : - Five polyps in the proximal sigmoid colon, in the distal sigmoid colon, in the descending colon, at the hepatic flexure and in the cecum, removed with a hot snare. Resected and retrieved. - The examination was otherwise normal on direct and retroflexion views. Recommendations : - Discharge patient to home. - Resume previous diet. - Continue present medications. - Await pathology results. - Repeat colonoscopy in 3 years for surveillance of multiple polyps. My findings are described in the full procedure note, which is enclosed. If I can be of further assistance, please feel free to contact me at Doctor phone number(s): , Work: . Sincerely, Jefry Quijano MD 05/25/2021 9:16:42 AM This report has been signed electronically.
[2021-05-25 09:20] VITALS: BP 104/64; BP 160/57; PULSE 74; RESP 16; O2SAT 91
[2021-05-25 09:25] VITALS: BP 115/69; BP 160/57; PULSE 73; RESP 16; O2SAT 92
[2021-05-25 09:30] VITALS: BP 119/68; BP 160/57
[2021-05-25 09:44] VITALS: BP 160/57
== END 2021-05-25 23:59 | disposition home or self-care (01) ==
LOC: EN 07:52 → AC 07:53
PROVIDERS: PCP Family Medicine; Referring Provider Family Medicine; Visit Provider Surgery
PROC: 0DJD8ZZ Inspection of Lower Intestinal Tract, Via Natural or Artificial Opening Endoscopic (ICD-10-PCS; CPT 45378; principal; 2021-05-25 08:55)
DX: Z12.11 Encounter for screening for malignant neoplasm of colon (principal); D12.5 Benign neoplasm of sigmoid colon; D12.4 Benign neoplasm of descending colon; D12.0 Benign neoplasm of cecum; D12.3 Benign neoplasm of transverse colon; I10 Essential (primary) hypertension; F17.200 Nicotine dependence, unspecified, uncomplicated; Z86.010 Personal history of colon polyps; Z79.899 Other long term (current) drug therapy
CPT/HCPCS: 45385; 88305; J7120; J2405

== ENCOUNTER 2021-06-12 14:35 | Outpatient (CLI) | payer OTHER, SELFPAY ==
--- NOTE | 2021-06-12 14:42 | CT_ITS ---
STUDY: LOW DOSE CT LUNG CANCER SCREENING REASON FOR EXAM: Male, 65 years old. Lung cancer screening -- 44 pk yr hx;current smoker; asymptomatic RADIATION DOSAGE (If Supplied By Facility): CTDIvol = ( 4.02 ) mGy, DLP = ( 131.90 ) mGycm TECHNIQUE: No contrast was administered. Low dose technique was utilized (average mAS-38 and kVp 120). 1.25 mm axial source images with a slice interval of 1.25-mm were reconstructed in lung windows. 2.5 mm axial source images with a slice interval of 2.5-mm were reconstructed in lung windows. 5.0 mm axial source images with a slice interval of 5.0-mm were reconstructed in soft tissue windows. Nodule measured using lung windows on PACS and/or independent workstation with automated measurement of minimum and maximum diameter. Nodule measurement reported as average diameter rounded to the nearest whole number. Growth is defined as an increase ins size of greater than 1.5 mm. COMPARISON: Comparison is made with prior chest radiograph dated 05/29/2017. NODULES: No suspicious nodules are seen. Emphysema: Hyperinflation. Mild degree of emphysematous changes. Endobronchial lesion: Unremarkable Aorta: Atherosclerotic calcification of the aortic arch and descending thoracic aorta. Coronary arteries: Coronary artery calcification. Heart: Unremarkable. Pulmonary artery: Unremarkable. Mediastinal nodes: Small benign appearing mediastinal lymph nodes. Other chest and abdominal findings: CT/Low Dose CT Lung Screening IMPRESSION: Lung-RADS category 2 - Continue annual screening with LDCT in 12 months. IMPORTANT NOTES FOR USE: ACR Lung-RADS Version 1.1 Assessment Categories Release Date: 2018 Category: Coded 0-4 bases on nodule(s) with highest degree of suspicion. Negative screen is defined as categories 1 and 2; a positive screen is defined as categories 3 and 4. Category 3 and 4A nodules that are unchanged on interval CT should be coded as category 2, and individuals returned to screening in 12 months. Category 4X: Category 3 or 4 nodules with additional imaging findings that increase the suspicion of lung cancer, such as spiculation, GGN that doubles in size in 1 year, enlarged lymph notes, etc. Category Modifiers: S (significant finding unrelated to lung cancer) Electronically Signed: Toño Barragan MD at 15:05 EDT ,
== END 2021-06-12 23:59 | disposition home or self-care (01) ==
PROVIDERS: PCP Family Medicine; Referring Provider Nurse Practitioner Family; Visit Provider Nurse Practitioner Family
DX: Z87.891 Personal history of nicotine dependence (principal); T81.89XD Other complications of procedures, not elsewhere classified, subsequent encounter
CPT/HCPCS: 71271

== ENCOUNTER → 2022-08-28 | Outpatient (CLI) | payer MEDICARE, OTHER, SELFPAY ==
[2022-08-28 12:16] LABS: Absolute Lymphocyte Count 1.64 X10^3/uL (0.83-4.51); Absolute Neutrophil Count 6.8 X10^3/uL (2.0-7.7); Basophil# 0.06 X10^3/uL; Basophil% 0.6 % (0-1); Eosinophil# 0.11 X10^3/uL; Eosinophils% 1.1 % (0-5); Hematocrit 48.5 % (40-54); Hemoglobin 16.4 g/dL (13.0-16.5); Lymphocyte # 1.64 X10^3/ul (0.83-4.51); Lymphocyte % 17.1 % (19-41); Mean Corp Hgb Conc 33.8 g/dL (32-36); Mean Corpuscular Hgb 34.2 pg (27.0-32.0); Mean Corpuscular Volume 101.3 fL (80-94); Mean Platelet Vol. 9.9 fl (6.2-12.0); Monocyte# 0.98 X10^3/uL; Monocyte% 10.2 % (0-10); NRBC Flagged by Analyzer 0 % (0-5); Neutrophil # 6.75 X10^3/uL (2.7-7.7); Neutrophil % 70.6 % (47-70); Platelet Count 332 K/mm3 (150-450); RBC Distribution Width CV 11.7 % (11.6-14.6); RBC Distribution Width SD 43.8 fl (35.1-43.9); Red Blood Count 4.79 M/mm3 (4.6-6.2); White Blood Count 9.6 K/mm3 (4.4-11.0)
[2022-08-28 12:38] LABS: AST(SGOT) 26 U/L (15-37); Alanine Aminotransfer ALT/SGPT 43 U/L (16-61); Alkaline Phosphatase 65 U/L (45-117); Anion Gap 7 (5-15); BUN 13 mg/dL (7-18); BUN/Creat Ratio 14.6 RATIO (10-20); Calcium,Total 9.5 mg/dL (8.5-10.1); Chloride 101 mmol/L (98-107); Cholesterol 223 mg/dL (200); Creatinine, Serum 0.89 mg/dL (0.70-1.30); EST Glomerular Filtration Rate 91 mL/min (>60); Est Glom Filt Rate - Afr Amer 110 mL/min (>60); Glucose 113 mg/dL (74-106); High Density Lipoprotein 58 mg/dL; PSA,Total - Annual Screen 0.45 ng/mL (0.00-4.00); Potassium 4.2 mmol/L (3.5-5.1); Sodium Level 134 mmol/L (136-145); Triglycerides 174 mg/dL; Very Low Density Lipoprotein 35 mg/dL (5-40)
== END | disposition home or self-care (01) ==
LOC: BFHLAB 10:31
PROVIDERS: PCP Nurse Practitioner Family; Referring Provider Nurse Practitioner Family; Visit Provider Nurse Practitioner Family
DX: I10 Essential (primary) hypertension (principal); E78.5 Hyperlipidemia, unspecified; Z12.5 Encounter for screening for malignant neoplasm of prostate
CPT/HCPCS: 36415; 80053; 80061; 84153; 85025; G0103

== ENCOUNTER → 2022-09-12 | Outpatient (CLI) | payer MEDICARE, OTHER, SELFPAY ==
--- NOTE | 2022-09-12 13:52 | CT_ITS ---
STUDY: LOW DOSE CT LUNG CANCER SCREENING REASON FOR EXAM: Male, 67 years old. SMOKER. 2PPD FOR MOST OF A 50 YEAR SMOKING HISTORY. COPD RADIATION DOSAGE (If Supplied By Facility): CTDIvol = ( 2.01 ) mGy, DLP = ( 70.97 ) mGycm TECHNIQUE: No contrast was administered. Low dose technique was utilized (average mAS-38 and kVp 120). 1.25 mm axial source images with a slice interval of 1.25-mm were reconstructed in lung windows. 2.5 mm axial source images with a slice interval of 2.5-mm were reconstructed in lung windows. 5.0 mm axial source images with a slice interval of 5.0-mm were reconstructed in soft tissue windows. COMPARISON: Comparison is made with prior study June 12, 2021. NODULES: No suspicious nodules are seen. Emphysema: Hyperinflation. Mild degree of emphysematous changes. Endobronchial lesion: None Aorta: Atherosclerotic calcific plaques. CORONARY ARTERIES: Coronary artery calcification is seen. Heart: Unremarkable. Pulmonary artery: Unremarkable Mediastinal nodes: Small benign-appearing mediastinal lymph nodes. Other chest and abdominal findings: CT/Low Dose CT Lung Screening IMPRESSION: Lung-RADS category 2 - Continue annual screening with LDCT in 12 months. IMPORTANT NOTES FOR USE: ACR Lung-RADS Version 1.1 Assessment Categories Release Date: 2018 Category: Coded 0-4 bases on nodule(s) with highest degree of suspicion. Negative screen is defined as categories 1 and 2; a positive screen is defined as categories 3 and 4. Category 3 and 4A nodules that are unchanged on interval CT should be coded as category 2, and individuals returned to screening in 12 months. Category 4X: Category 3 or 4 nodules with additional imaging findings that increase the suspicion of lung cancer, such as spiculation, GGN that doubles in size in 1 year, enlarged lymph notes, etc. Category Modifiers: S (significant finding unrelated to lung cancer) Electronically Signed: Toño Barragan MD at 15:15 EDT ,
== END | disposition home or self-care (01) ==
LOC: CT 13:51
PROVIDERS: PCP Nurse Practitioner Family; Referring Provider Nurse Practitioner Family; Visit Provider Nurse Practitioner Family
DX: J44.9 Chronic obstructive pulmonary disease, unspecified (principal); Z72.0 Tobacco use
CPT/HCPCS: 71271

== ENCOUNTER → 2023-09-01 | Outpatient (CLI) | payer MEDICARE, OTHER, SELFPAY ==
[2023-09-01 12:13] LABS: Absolute Lymphocyte Count 2.56 X10^3/uL (0.83-4.51); Absolute Neutrophil Count 8.8 X10^3/uL (2.0-7.7); Basophil# 0.07 X10^3/uL; Basophil% 0.6 % (0-1); Eosinophil# 0.06 X10^3/uL; Eosinophils% 0.5 % (0-5); Hematocrit 45.9 % (40-54); Hemoglobin 15.4 g/dL (13.0-16.5); Lymphocyte # 2.56 X10^3/ul (0.83-4.51); Lymphocyte % 20.6 % (19-41); Mean Corp Hgb Conc 33.6 g/dL (32-36); Mean Corpuscular Volume 95.4 fL (80-94); Mean Platelet Vol. 9.7 fl (6.2-12.0); Monocyte# 0.92 X10^3/uL; Monocyte% 7.4 % (0-10); NRBC Flagged by Analyzer 0 % (0-5); Neutrophil # 8.78 X10^3/uL (2.7-7.7); Neutrophil % 70.6 % (47-70); Platelet Count 372 K/mm3 (150-450); RBC Distribution Width CV 12.2 % (11.6-14.6); RBC Distribution Width SD 42.9 fl (35.1-43.9); Red Blood Count 4.81 M/mm3 (4.6-6.2); White Blood Count 12.4 K/mm3 (4.4-11.0)
[2023-09-01 13:52] LABS: AST(SGOT) 20 U/L (15-37); Alanine Aminotransfer ALT/SGPT 29 U/L (16-61); Alkaline Phosphatase 86 U/L (45-117); Anion Gap 12 (5-15); BUN 15 mg/dL (7-18); BUN/Creat Ratio 14.7 RATIO (10-20); Calcium,Total 9.7 mg/dL (8.5-10.1); Chloride 106 mmol/L (98-107); Cholesterol 218 mg/dL (200); Creatinine, Serum 1.02 mg/dL (0.70-1.30); EST Glomerular Filtration Rate 77 mL/min (>60); Est Glom Filt Rate - Afr Amer 94 mL/min (>60); Glucose 108 mg/dL (74-106); High Density Lipoprotein 35 mg/dL; PSA,Total - Annual Screen 0.35 ng/mL (0.00-4.00); Potassium 4.1 mmol/L (3.5-5.1); Sodium Level 137 mmol/L (136-145); Triglycerides 142 mg/dL; Very Low Density Lipoprotein 28 mg/dL (5-40)
== END | disposition home or self-care (01) ==
LOC: MTLAB 10:50
PROVIDERS: PCP Nurse Practitioner Family; Referring Provider Nurse Practitioner Family; Visit Provider Nurse Practitioner Family
DX: I10 Essential (primary) hypertension (principal); E78.5 Hyperlipidemia, unspecified; Z12.5 Encounter for screening for malignant neoplasm of prostate
CPT/HCPCS: 36415; 80053; 80061; 84153; 85025; G0103

== ENCOUNTER → 2023-10-28 | Outpatient (CLI) | payer MEDICARE, OTHER, SELFPAY ==
--- NOTE | 2023-10-28 12:58 | CT_ITS ---
STUDY: LOW DOSE CT LUNG CANCER SCREENING REASON FOR EXAM: Male, 68 years old. Lung cancer screening -- and gt;20 pk yr hx;current smoker;asymptomatic. Patient smoked 1 pack per day for 53 years. RADIATION DOSAGE (If Supplied By Facility): CTDIvol = ( 3.02 ) mGy, DLP = ( 111.74 ) mGycm TECHNIQUE: No contrast was administered. Low dose technique was utilized (average mAS-38 and kVp 120). 1.25 mm axial source images with a slice interval of 1.25-mm were reconstructed in lung windows. 2.5 mm axial source images with a slice interval of 2.5-mm were reconstructed in lung windows. 5.0 mm axial source images with a slice interval of 5.0-mm were reconstructed in soft tissue windows. COMPARISON: Comparison is made with prior study dated September 12, 2022. NODULES: No suspicious nodules are seen. Emphysema: Hyperinflation. Stable mild degree of emphysematous changes. Endobronchial lesion: None Aorta: Atherosclerotic calcific plaques. CORONARY ARTERIES: Coronary artery calcification is seen. Heart: Unremarkable Pulmonary artery: Unremarkable Mediastinal nodes: Small benign-appearing mediastinal lymph nodes. Other chest and abdominal findings: CT/Low Dose CT Lung Screening IMPRESSION: Lung-RADS category 2 - Continue annual screening with LDCT in 12 months. IMPORTANT NOTES FOR USE: ACR Lung-RADS Version 1.1 Assessment Categories Release Date: 2018 Category: Coded 0-4 bases on nodule(s) with highest degree of suspicion. Negative screen is defined as categories 1 and 2; a positive screen is defined as categories 3 and 4. Category 3 and 4A nodules that are unchanged on interval CT should be coded as category 2, and individuals returned to screening in 12 months. Category 4X: Category 3 or 4 nodules with additional imaging findings that increase the suspicion of lung cancer, such as spiculation, GGN that doubles in size in 1 year, enlarged lymph notes, etc. Category Modifiers: S (significant finding unrelated to lung cancer) Electronically Signed: Toño Barragan MD at 13:33 EDT ,
== END | disposition home or self-care (01) ==
LOC: CT 12:58
PROVIDERS: PCP Nurse Practitioner Family; Referring Provider Nurse Practitioner Family; Visit Provider Nurse Practitioner Family
DX: Z12.2 Encounter for screening for malignant neoplasm of respiratory organs (principal); Z87.891 Personal history of nicotine dependence
CPT/HCPCS: 71271

== ENCOUNTER 2024-07-27 08:25 | Day surgery (SDC) | payer MEDICARE, OTHER, SELFPAY ==
[2024-07-27] VITALS (8 sets, daily range): BP systolic 80–126; BP diastolic 43–73; PULSE 57–81; RESP 16–18; TEMP 36.2–36.8; O2SAT 90–95; BMI 24.5
[2024-07-27] MEDS: Lactated Ringers 1,000 ML 15 ML IV (09:03)
--- NOTE | 2024-07-27 09:08 | PCM.PRE.AN2 ---
ASA Classification* ASA Classification ASA Classification: 2 Assessment & Plan Anesthesia* Anesthesia Assessment Anesthesia Assessment: Discussed sedation and/or anesthesia options, risks, benefits, and alternatives with patient/parents/legal guardian/POA. Questions invited. The patient/parents/legal guardian/POA seems to understand and agrees to proceed with anesthesia plan. Reviewed the physical assessment, medical history, allergy history and patient home medications list prior to surgery/procedure/anesthetic and documented any changes. Performed airway and anesthesia risk assessments. Anesthesia Type Anesthesia Type: MAC History Source History Obtained from:: Patient and Chart Anesthesia Focused Assessment* Temperature: 97.4 F Pulse Rate: 81 Blood Pressure: 126/73 Respiratory Rate: 18 Pulse Ox: 94 Airway Assessment Mouth opens: >3 cm Mallampati Score: III Focused Labs Anesthesia Preop lab: CBC WBC 12.4 K/mm3 (4.4-11.0) H 09/01/23 10:50 09/01/23 RBC 4.81 M/mm3 (4.6-6.2) 09/01/23 10:50 09/01/23 Hgb 15.4 g/dL (13.0-16.5) 09/01/23 10:50 09/01/23 Hct 45.9 % (40-54) 09/01/23 10:50 09/01/23 Plt Count 372 K/mm3 (150-450) 09/01/23 10:50 09/01/23 CHEMISTRY Potassium 4.1 mmol/L (3.5-5.1) 09/01/23 10:50 09/01/23 Sodium 137 mmol/L (136-145) 09/01/23 10:50 09/01/23 BUN 15 mg/dL (7-18) 09/01/23 10:50 09/01/23 Creatinine 1.02 mg/dL (0.70-1.30) 09/01/23 10:50 09/01/23 Glucose 108 mg/dL (74-106) H 09/01/23 10:50 09/01/23 TSH 1.66 uIU/mL (0.358-3.74) 10/05/18 10:40 10/05/18 COAG Pre-Assessment Diagnosis/Proposed Procedure Planned Operative Procedure(s): CSCOPE OA Anesthesia History 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 When Was Last Pacemaker Check QUESTION #4 FULL TEXT: You/Your Family Experience fever (hyperthermia) with Anesthesia Last Oral Intake Last Oral intake: Last Oral Intake NPO since 05:30 07/27/24 08:52 Meds taken in AM with sips of water? Meds patient instructed to take am of surgery PONV PONV - automobile body repairer: PONV - automobile body repairer Female No 07/23/24 09:54 HX of Motion Sickness No 07/23/24 09:54 HX of N/V After Surgery No 07/23/24 09:54 Non-Smoker No 07/23/24 09:54 Duration of Surgery greater No 07/23/24 09:54 than 60 minutes Number of Risk Factors PONV Score Height & Weight Height & Weight: Anesthesia: Height & Weight Height 5 ft 7 in 07/27/24 08:52 Weight: 71 kg 07/27/24 08:52 Body Mass Index (BMI) 24.5 07/27/24 08:52 Respiratory Assessment Respiratory Assessment - automobile body repairer: Respiratory Tract Infection Hx - automobile body repairer Hx Respiratory Tract Infection No 07/23/24 09:54 STOP Sleep Apnea STOP Sleep Apnea - automobile body repairer: STOP Sleep Apnea - automobile body repairer Hx Hypertension Yes: CONTROLLED WITH MED 07/23/24 09:54 Hx Sleep Apnea No 07/23/24 09:54 CPAP No 05/25/21 09:15 BIPAP No 05/01/17 13:52 Do you snore loudly (louder No 07/23/24 09:54 than talking or can be heard Do you often feel tired/ No 07/23/24 09:54 fatigued/ sleepy during daytime? Has anyone observed you stop No 07/23/24 09:54 breathing during sleep? STOP Results Negative 07/23/24 09:54 QUESTION #5 FULL TEXT : Do you snore loudly (louder than talking or can be heard through closed doors)? Tobacco Use History Tobacco Use History - automobile body repairer: Tobacco Use History - automobile body repairer Tobacco Use Smoking Status Current every day smoker 07/23/24 09:54 Hx Tobacco Use Yes 07/23/24 09:54 Years Smoking Packs Smoked per Day Smoking Cessation Date was within the last 15 years Hx Smoking Cessation Date Hx Smoking Cessation Counseling Hematologic Medial History Hematologic Hx - automobile body repairer: Hematologic Medical Hx - white washer Hx of Blood Transfusion No 07/23/24 09:54 Hx of Transfusion in last 3 No 07/23/24 09:54 Months Date of Last Transfusion (if within last 3 months) Ever experience any problems No 07/23/24 09:54 with transfusion(s)? Specify any problems Hx of Preganancy in last 3 N/A 07/23/24 09:54 Months Nurse Filling Out Transfusion DSCHRIBER 07/23/24 09:54 & Questions: Date: 07/23/24 07/23/24 09:54 Time: 09:55 07/23/24 09:54 Patient unable to answer at this time (ie. confused, unrespo /Reproduction History /Reproductive History - automobile body repairer: /Reproductive Hx- automobile body repairer Hx Now No 07/23/24 09:54 Gestational Age (in weeks): EDC: Hx Hx Para Hx Section SAB No 07/23/24 09:54 Active Medications Active Medications: Current Medications Generic Name Dose Route Start Last Admin Trade Name Freq PRN Reason Stop Dose Admin Lactated Ringer's 1,000 mls @ 15 mls/hr 07/27/24 08:45 07/27/24 09:03 IV 15 mls/hr .Q48H TITUS Administration PFSH Medical History Wears partial dentures Marijuana use High cholesterol Smoker Encounter for screening for malignant neoplasm of lung in current smoker with 30 pack year history or greater Wears dentures Alcohol use NONHEALING SURGICAL WOUND RIGHT KNEE NONHEALING ULCER RIGHT KNEE Rupture of right patellar tendon SCROTAL HYDROCELES COPD (chronic obstructive pulmonary disease) Hernia, inguinal, bilateral Hypertension Wound, surgical, nonhealing Home Medications ?Medication ?Instructions ?Recorded ?Last Taken ?Type cymwnshl-ifp-fjkxc acid 0.4 1 ea PO DAILY 10/28/14 07/25/24 History mg-lycopene 300 mcg-lutein 250 mcg tablet amlodipine 5 mg tablet 5 mg PO DAILY 05/01/17 07/27/24 History atorvastatin 40 mg tablet 40 mg PO QHS 07/23/24 07/25/24 History Allergy/AdvReac Type Severity Reaction Status Date / Time Sulfa (Sulfonamide AdvReac Hives Verified 07/27/24 08:51 Antibiotics) Family History Father , AGE 75 Myocardial infarction Brother Kidney malignancy Surgical History Hx of colonoscopy SURGICAL PREPARATION RIGHT KNEE WITH INCISION AND DRAINAGE EXCISIONSINUS TRACT AND DEBRIDEMENT RIGHT KNEE WOUND RIGHT PATELLA TENDON RUPTURE REPAIR DOUBLE HERNIA REPAIR LAPAROSCOPIC BILATERAL INGUINAL HERNIA REPAIR DISLOCATOR RIGHT HIP History of right hip replacement Social History household members: spouse current occupational status: retired Smoking Status: Current every day smoker tobacco type: cigarettes Tobacco: How many years used: 44 second hand exposure: Yes quit status: not considering quitting alcohol intake: current alcohol intake frequency: 0-2 drinks per day Alcohol type: beer substance use type: does not use do you feel safe at home: Yes Addt'l Information Additional Findings: > 4METS Review of Systems (Anesthesia) ROS Narrative System reviewed and no additional complaints, except as documented. Physical Exam Const alert and oriented x3 Resp normal respiratory effort and normal air movement Auscultation: clear to auscultation bilaterally Cardio regular rate Neuro oriented x3 and moves all extremities
--- NOTE | 2024-07-27 09:32 | H&P.OPEN ---
HPI - General HPI Narrative RYAN SHELTON, is a 68 M who presents for surveillance colonoscopy. His last colonoscopy was 3 years ago and 5 adenomas were removed. He was recommended to have a recall in 3 years. He denies abdominal pain or blood in stool. No family history of colon cancer. [facility] Medical History Wears partial dentures Marijuana use High cholesterol Smoker Encounter for screening for malignant neoplasm of lung in current smoker with 30 pack year history or greater Wears dentures Alcohol use NONHEALING SURGICAL WOUND RIGHT KNEE NONHEALING ULCER RIGHT KNEE Rupture of right patellar tendon SCROTAL HYDROCELES COPD (chronic obstructive pulmonary disease) Hernia, inguinal, bilateral Hypertension Wound, surgical, nonhealing Home Medications ?Medication ?Instructions ?Recorded ?Last Taken ?Type dydfnqhn-kdn-dgjoq acid 0.4 1 ea PO DAILY 10/28/14 07/25/24 History mg-lycopene 300 mcg-lutein 250 mcg tablet amlodipine 5 mg tablet 5 mg PO DAILY 05/01/17 07/27/24 History atorvastatin 40 mg tablet 40 mg PO QHS 07/23/24 07/25/24 History Allergy/AdvReac Type Severity Reaction Status Date / Time Sulfa (Sulfonamide AdvReac Hives Verified 07/27/24 08:51 Antibiotics) Family History Father , AGE 75 Myocardial infarction Brother Kidney malignancy Surgical History Hx of colonoscopy SURGICAL PREPARATION RIGHT KNEE WITH INCISION AND DRAINAGE EXCISIONSINUS TRACT AND DEBRIDEMENT RIGHT KNEE WOUND RIGHT PATELLA TENDON RUPTURE REPAIR DOUBLE HERNIA REPAIR LAPAROSCOPIC BILATERAL INGUINAL HERNIA REPAIR DISLOCATOR RIGHT HIP History of right hip replacement Social History household members: spouse current occupational status: retired Smoking Status: Current every day smoker tobacco type: cigarettes Tobacco: How many years used: 44 second hand exposure: Yes quit status: not considering quitting alcohol intake: current alcohol intake frequency: 0-2 drinks per day Alcohol type: beer substance use type: does not use do you feel safe at home: Yes Past Medical/Surgical History Planned Operation Planned Operative Procedure(s): CSCOPE OA S.O.S: No Previous Hospitalizations/Surgeries HX Hospitalizations: No HX of Surgeries: RIGHT HIP REPLACEMENT TEETH REMOVED bilat inguinal hernia repair 2016 RIGHT PATELLA TENDON REPAIR 2017 I&D RIGHT KNEE 08/2016 surgical preparation right knee with debridement of non healing wound 01/2017 Any Problems With Anesthesia: No You/Your Family Experience Fever (Hyperthermia) With Anes: No Cholinesterase deficiency: No Cardiovascular Hx Chest Pain within Last 2 months: No Hx of Irregular Heartbeat and/or Afib: No Hx Heart Attack: No Hx Congestive Heart Failure: No Hx Rheumatic Fever: No Hx Hypertension: Yes (CONTROLLED WITH MED) Hx Internal Defibrillator: No Hx Pacemaker: No Hx Cardiac Catheterization: No Hx Cardiac Surgery/Stents/Etc.: No Hx Stress Test: No Hx Pain in Legs when Walking/Leg Cramps: Yes (right knee) Respiratory Chronic Cough: No HX of Shortness of Breath: No Hoarseness: No Hx Chronic Obstructive Pulmonary Disease (COPD): Yes (no inhalers) Hx Asthma: No Hx Emphysema: No Hx Sleep Apnea: No CPAP: No BIPAP: No Hx Respiratory Tract Infection/Cold (presently): No Do You Snore Loudly (louder than talking or can be heard): No Do You Often Feel Tired/ Fatigued/ Sleepy Dring Daytime?: No Has Anyone Observed You Stop Breathing During Sleep?: No Result (for STOP score): Negative Hx Smoking: Yes (1.5 PPD 40+ YRS) Smoking Status: Current every day smoker Gastrointestinal Hx Gastrointestinal Disorders: No Hx Gastrointestinal Bleed: No Hx Ulcer: No Hx Hiatal Hernia: No Difficulty Chewing/Swallowing: No Special diet followed at home: No Hx Unplanned Weight Loss of 20#: No HX Unplanned Weight Gain of 20#: No Neurological Hx Seizures: No HX Syncope/Blackout Spells/Unconsciousness: No Hx Transient Ischemic Attacks (TIA): No Hx Multiple Sclerosis: No Hx Parkinson's Disease: No Hx Head/Neck Injury: No Hx Headaches: No Hx Back Injury/Pain: No Recent Onset of Speech Difficulty: No Restless Legs: No Does patient have nerve stimulator: No Blood Disorder Hx Leukemia: No Bleeding Tendencies: No Hx Deep Vein Thrombosis: No Hx High Cholesterol: No Blood Transmitted Disease: No Hx Hepatitis: No Hx Cirrhosis: No Hx Anemia: No Hx Blood Disorders: No Reproduction : No Genitourinary Hx Renal Disease: No Musculoskeletal Hx Arthritis: No Hx Rheumatoid Arthritis: No Hx Gout: No Recent Onset of an Orthopedic Problem: Yes (RIGHT KNEE ULCER) Endocrine Hx Diabetes: No Thyroid Disease: No Hx Steroid Therapy: No Psycho/Social Hx Substance Use: No Hx Alcohol Use: Yes (3 beers/night) Hx Anxiety: No Hx Depression: No Mental Illness: No Hx Dementia: No Miscellaneous Hx Cancer: No Recent Exposure to Contagious Disease: No Hx of C-Diff: No Any Loose Teeth: No (UPPER DENTURE AND PARTIAL BOTTOM) Allergies Sulfa (Sulfonamide Antibiotics) Adverse Reaction (Verified 07/27/24 08:51) Hives INFLAMMATION, RASH Discharge Is Pt Admitted From a Group Home, or a Retirement: No After D/C, Where Do you Plan to Go: Return Home From the [facility] History Number of Risk Factors: 3 Vital Signs Vital Signs Vital Signs: 07/27/24 08:52 07/27/24 08:52 07/27/24 09:09 Temperature 97.4 F L 97.4 F L Temperature Source Temporal Pulse Rate 81 81 Respiratory Rate 18 18 Respiratory Pattern Normal Blood Pressure 126/73 H 126/73 H Blood Pressure Mean 90 Blood Pressure Source Monitor Blood Pressure Position Semi-Fowlers Blood Pressure Location Left Arm Pulse Ox 94 94 Oxygen Delivery Method Room Air Weight Weight: 156 lb 8.451 oz Body Mass Index (BMI) 24.5 Physical Exam Const alert and oriented x3 HEENT normocephalic Eyes PERRL Resp normal respiratory effort and normal air movement Cardio regular rate and regular rhythm GI soft to palpation, non-tender and non-distended Extremity normal to inspection Assessment & Plan Assessment/Plan (1) History of colon polyps: PLAN: I explained endoscopy in detail to the patient. I explained the risks including but not limited to stroke or heart attack with anesthesia, perforation of the GI tract, bleeding, infection. I explained that any of these could necessitate further emergency surgery. The patient understands and all questions were answered sufficiently. The patient wishes to proceed with procedure. Jefry Quijano MD Pager: [facility] [address] [place] [address], [address] [place] [address] Office: Surgery Risks - Colonoscopy Risks Include but are not Limited To: Risks include but are not limited to: Bleeding, perforation requiring further surgery, inability to complete colonoscopy requiring barium enema.
--- NOTE | 2024-07-27 10:05 | OP.CCLET_ITS ---
07/27/2024 Remedios Soto Re : Colonoscopy procedure for Luis Reyesr Rodrigue This procedure was performed on Saturday, July 27, 2024. My impressions and recommendations are as follows: Impressions : - The entire examined colon is normal on direct and retroflexion views. - No specimens collected. Recommendations : - Discharge patient to home. - Resume previous diet. - Continue present medications. - Repeat colonoscopy in 5 years for screening purposes. My findings are described in the full procedure note, which is enclosed. If I can be of further assistance, please feel free to contact me at Doctor phone number(s): , Work: . Sincerely, Jefry Quijano MD 07/27/2024 10:04:33 AM This report has been signed electronically.
--- NOTE | 2024-07-27 10:05 | OP.COLON_ITS ---
Patient Name: Luis Hairston Procedure Date: 07/27/2024 9:37 AM Date of : 1955 Age: 68 Procedure: Colonoscopy Indications: High risk colon cancer surveillance: Personal history of colonic polyps Providers: Jerfy Quijano MD Medicines: Propofol per Anesthesia Patient Profile: This is a 68 year old male. Refer to note in patient chart for documentation of history and physical. Last Colonoscopy: 3 years ago. Complications: No immediate complications. Procedure: Pre-Anesthesia Assessment: - Prior to the procedure, a History and Physical was performed, and patient medications and allergies were reviewed. The patient's tolerance of previous anesthesia was also reviewed. The risks and benefits of the procedure and the sedation options and risks were discussed with the patient. All questions were answered, and informed consent was obtained. Prior Anticoagulants: The patient has taken no anticoagulant or antiplatelet agents. After reviewing the risks and benefits, the patient was deemed in satisfactory condition to undergo the procedure. After I obtained informed consent, the scope was passed under direct vision. Throughout the procedure, the patient's blood pressure, pulse, and oxygen saturations were monitored continuously. The Colonoscope was introduced through the anus and advanced to the cecum, identified by appendiceal orifice and ileocecal valve. The colonoscopy was performed without difficulty. The patient tolerated the procedure well. The quality of the bowel preparation was good. The ileocecal valve, appendiceal orifice, and rectum were photographed. Scope In: 9:49:47 AM Scope Withdrawal Time 0 hours 6 minutes 20 seconds Scope Out: 9:59:21 AM Total Procedure Duration Time 0 hours 9 minutes 34 seconds Findings: The entire examined colon appeared normal on direct and retroflexion views. Impression: - The entire examined colon is normal on direct and retroflexion views. - No specimens collected. Recommendation: - Discharge patient to home. - Resume previous diet. - Continue present medications. - Repeat colonoscopy in 5 years for screening purposes. Procedure Code(s): --- Professional --- 41191, Colonoscopy, flexible; diagnostic, including collection of specimen(s) by brushing or washing, when performed (separate procedure) Diagnosis Code(s): --- Professional --- Z86.010, Personal history of colonic polyps CPT copyright 2021 [employer]. All rights reserved. The codes documented in this report are preliminary and upon manager energy review may be revised to meet current compliance requirements. Jefry Quijano MD 07/27/2024 10:04:33 AM This report has been signed electronically. Number of Addenda: 0 Note Initiated On: 07/27/2024 9:37 AM
--- NOTE | 2024-07-27 10:09 | PCM.POST.ANE ---
Anesthesia: Postop Eval I Current Vital Signs Temperature: 97.3 F Pulse Rate: 67 Blood Pressure: 93/49 Respiratory Rate: 16 Pulse Ox: 94 Oxygen Delivery Method: Room Air Assessment Airway patent: Yes Spontaneous unlabored respirations: Yes Mental status: Asleep nausea: No Vomiting: No Anesthesia Complication: No Fluid Hydration Crystalloid volume administer (ml): 500 Total IV fluid infused: 500 Progress Note Anesthesia document: Postop Eval 1 completed: Yes
--- NOTE | 2024-07-27 14:09 | PCM.POSTANE2 ---
Anesthesia Postop Eval I Sum Postop Eval Completion status Anesthesia document: Postop Eval 1 completed: Yes Anesthesia Postop Eval I Summary Anesthesia Postop Eval I Summary: Anesthesia Postop Eval I: Assessment Summary Airway patent Yes 07/27/24 10:10 [email or web address] Spontaneous unlabored Yes 07/27/24 10:10 [email or web address] respirations Mental status Asleep 07/27/24 10:10 [email or web address] nausea No 07/27/24 10:10 [email or web address] Vomiting No 07/27/24 10:10 [email or web address] Anesthesia Postop Eval I: Fluid Summary Crystalloid volume administer 500 07/27/24 10:10 [email or web address] (ml) Colloids volume administered ( ml) Blood Product volume administered (ml) Total IV fluid infused 500 07/27/24 10:10 [email or web address] Anesthesia Postop Eval I: Summary Notes Anesthesia Complication No 07/27/24 10:10 [email or web address] Anesthesia Complication Comment: Post-operative progress note Anesthesia: Postop Eval II Evaluation Mental status: Awake and Calm Pain Level: 0 nausea: No Vomiting: No Complications Anesthesia Complication: No
== END 2024-07-27 10:42 | disposition home or self-care (01) ==
LOC: EN 08:25 → AC 08:27
PROVIDERS: PCP Nurse Practitioner Family; Referring Provider Surgery; Visit Provider Surgery
PROC: 0DJD8ZZ Inspection of Lower Intestinal Tract, Via Natural or Artificial Opening Endoscopic (ICD-10-PCS; CPT 45378; principal; 2024-07-27 09:25)
DX: Z12.11 Encounter for screening for malignant neoplasm of colon (principal); J44.9 Chronic obstructive pulmonary disease, unspecified; I10 Essential (primary) hypertension; Z86.0100 Personal history of colon polyps, unspecified; F17.210 Nicotine dependence, cigarettes, uncomplicated; E78.00 Pure hypercholesterolemia, unspecified; Z79.899 Other long term (current) drug therapy
CPT/HCPCS: G0105; J2405

== ENCOUNTER → 2024-11-30 | Outpatient (CLI) | payer MEDICARE, OTHER, SELFPAY ==
--- NOTE | 2024-11-30 14:00 | CT_ITS ---
PROCEDURE: LOW DOSE CT LUNG SCREENING 11/30/2024 REASON FOR EXAM: LUNG CANCER SCREENING TECHNIQUE: Procedure Code: [id number] Modality: CT Procedure: LOW DOSE CT LUNG SCREENING Coronal and Sagittal reconstruction series were provided. One or more dose reduction techniques were used (e.g., Automated exposure control, adjustment of the mA and/or kV according to patient size, use of iterative reconstruction technique). RADIATION DOSE SUMMARY: CTDlvol: 2 mGy DLP: 69 mGycm COMPARISON: Studies dated October 28, 2023 and June 12, 2021 are listed but no images or reports are available. FINDINGS: Pulmonary Nodules: A solid, 3.3 mm noncalcified nodule is shown in the lingula image 103. A solid, 3 mm noncalcified nodule is shown in the right upper lobe on image 110. A solid, 4 mm, noncalcified nodule is shown in the lingula on image 119. Hardware:None Lymph Nodes:None appear enlarged. Heart and Vasculature:Heart is normal size. No pericardial effusion. Moderateatherosclerotic plaque of the aorta without aneurysm. Coronary Artery Calcifications: Present Lungs and Airways: Small focus of linear scarring medial segment right middle lobe, dependent right lower lobe. Ground-glass centrilobular nodules are shown in the upper lobes. Pleura:No pleural effusion or pneumothorax. Upper Abdomen:Unremarkable Bones:Unremarkable. CT/Low Dose CT Lung Screening IMPRESSION: 1. Multiple small pulmonary nodules less than 6 mm. ACR Lung-RADS guidelines s uggest the following: Category 2 (Benign appearance or behavior). Continue annual screening with Low Dose chest CT in 12 months. 2. Ground-glass centrilobular nodules consistent with respiratory bronchioliti s interstitial lung disease, RB-ILD. Coronary artery calcification (CAC) is present Lung-RADS Category: 2 BENIGN (BASED ON IMAGING FEATURES OR INDOLENT BEHAVIOR). RECOMMEND 12-MONTH SCREENING LDCT. Reading Location: [id number]
== END | disposition home or self-care (01) ==
LOC: CT 13:56
PROVIDERS: PCP Nurse Practitioner Family; Referring Provider Nurse Practitioner Family; Visit Provider Nurse Practitioner Family
DX: Z12.2 Encounter for screening for malignant neoplasm of respiratory organs (principal); Z87.891 Personal history of nicotine dependence
CPT/HCPCS: 71271